=== PATIENT | female | born 1955 | race Caucasian/White ===

== ENCOUNTER → 2017-06-26 | Outpatient (CLI) | payer MEDICARE ==
[2014-11-04 10:12] VITALS: BP 125/66
[~2017-06-26] MED LIST: CITA40TA12 PO; CYCL5TAB PO; GLIM2TAB2 PO; HYDR-2758 PO; LISI-338 PO; LOVA40TA2 PO; METF850T2 PO; OLAN20TA7 PO; OMEP20CA5 PO; PIOG15TA42 PO; PROAIR HFA8.5 GM IH; ROPI1TAB PO; ZOLP10TA PO; glyburide
--- NOTE | 2017-06-27 14:16 | SLEEP ---
DATE OF STUDY: 06/26/2017 SLEEP STUDY ATTENDING PHYSICIAN: Dr. Delicia Lopes. The patient is 62 years old who weighs 250 pounds with a BMI of 40. The patient's [place] score was 5. The patient had a previous sleep study 5 years ago at and was negative for MARIE per history. The patient has gained 30-40 pounds since then. Another sleep study was requested by primary care physician and was performed at [facility]. During the night study, the patient spent 423 minutes in bed and slept for 236 minutes with a low sleep efficiency of 56%. Sleep latency was 24 minutes with absent REM sleep. Overall, sleep architecture showed increased stage I and stage II sleep, normal slow wave and absent REM sleep. During the night study, the patient had 2 obstructive apneas, no mixed or central apneas. There were 66 hypopneas. The patient's apnea-hypopnea index was 17 per hour with a supine index of 19 per hour. No REM sleep observed. Review of nocturnal oximetry study revealed a mean oxygen saturation of 88% with the lowest of 67%. A 12% of time oxygen saturation remained between 80% and 89% and 87% of time between 70% and 79%. EKG monitoring revealed an artifact; however, the rhythm was irregular and was consistent with atrial fibrillation. The patient's average heart rate was 101 beats per minute. PLMS were seen at index of 1 per hour and none caused EEG arousals. The patient's respiratory events were towards the end of the night as a result CPAP could not be initiated. IMPRESSION: 1. Moderate sleep apnea-hypopnea syndrome with an apnea-hypopnea index of 17 per hour. Absence of REM sleep can underestimate the severity of sleep apnea. 2. Nocturnal hypoxia secondary to obstructive sleep apnea. 3. Abnormal EKG consistent with atrial fibrillation. Follow Cardiology as clinically indicated. RECOMMENDATIONS: 1. The patient should return for CPAP titration study. 2. Once optimum CPAP pressure is achieved, then follow up in 4-6 weeks to assess compliance with CPAP and to document clinical improvement. 3. Weight loss is strongly advised. 4. Avoid REWINDER OPERATOR HELPER depressants. 5. Caution regarding driving until symptoms of sleep apnea resolve with the use of CPAP. JASON HUSSEIN MD DR: DARÍO/chelsea JOB#: [id number] / [id number] DELICIA Pollack MD
== END | disposition home or self-care (01) ==
LOC: SLPLAB 18:28
PROVIDERS: ATTEND Family Medicine
DX: G47.33 Obstructive sleep apnea (adult) (pediatric) (principal)
CPT/HCPCS: 95810

== ENCOUNTER → 2017-08-05 | Outpatient (CLI) | payer MEDICARE ==
[2014-11-04 10:12] VITALS: BP 125/66
--- NOTE | 2017-08-06 16:19 | SLEEP ---
DATE OF STUDY: 08/05/2017 ATTENDING PHYSICIAN: Dr. Delicia Lopes. The patient is 62 years old who weighs 250 pounds with a BMI of 40. The patient's [place] score was 5. The patient had a sleep study performed on 06/26/2017 and was found to have moderate MARIE with an AHI of 17 per hour. The patient's EKG was also abnormal consistent with atrial fibrillation. She was referred back for CPAP titration study. During the night study, the patient spent 397 minutes in bed and slept for 278 minutes with a low sleep efficiency of 70%. Sleep latency was prolonged at 61 minutes with a REM latency of 205 minutes. Overall, sleep architecture showed normal stage I and stage II sleep, increased slow wave and normal REM sleep. EKG monitoring revealed irregular heartbeat consistent with atrial fibrillation. The patient's average heart rate was 86 beats per minute. PLMS were not seen. The patient was started on CPAP at a pressure of 5 cm water and titrated up to 15 cm of water. At the final pressure, the patient slept for 91 minutes. The patient had supine sleep as well as lateral REM sleep observed. The patient's AHI was reduced to 0 per hour. The patient's oxygen saturations remained mid 80s while on REM sleep at this pressure. It went up to 90s when the patient was not in REM sleep. She would benefit from an outpatient nocturnal oximetry study to assess the need for supplemental oxygen. The patient used a small sized full face mask. IMPRESSION: 1. Moderate sleep apnea diagnosed by previous sleep study. 2. Abnormal EKG consistent with atrial fibrillation. 3. Mild nocturnal hypoxia, which persisted despite effective CPAP usage. It could be secondary to coexisting obesity hypoventilation syndrome. RECOMMENDATIONS: 1. CPAP at 15 cm water completely eliminated the patient's sleep apnea, should be used on a nightly basis. 2. Nocturnal oximetry as an outpatient while on 15 cm of water to assess the need for supplemental oxygen. 3. Follow up in 4-6 weeks to assess compliance with CPAP and to document clinical improvement. 4. Weight loss is strongly advised. 5. Avoid PRODUCTION STAGE MANAGER depressants. 6. Caution regarding driving until symptoms of sleep apnea resolve with the use of CPAP. JASON HUSSEIN MD DR: DARÍO/chelsea JOB#: [id number] / [id number] DELICIA Pollack MD MTDD
== END | disposition home or self-care (01) ==
LOC: RT 20:17
PROVIDERS: ATTEND Family Medicine
DX: G47.33 Obstructive sleep apnea (adult) (pediatric) (principal)
CPT/HCPCS: 95811

== ENCOUNTER → 2017-08-29 | Outpatient (CLI) | payer MEDICARE ==
[2014-11-04 10:12] VITALS: BP 125/66
--- NOTE | 2017-08-30 10:40 | RAD ---
APPROVED REPORT Test Type: Pharmacological Stress Nurse/Tech: Sheron Galindo R.N. Test Indications: dyspnea Cardiac History: htn, smoker, DM Medications: See Electronic Medical Record Medical History: See Electronic Medical Record Resting ECG: SR Resting Heart Rate: 74 bpm Resting Blood Pressure: 124/56mmHg Pretest Chest Pain: No chest pain Nurse/Tech Notes S1S2, lungs CTA Consent: The procedure was explained to the patient in lay terms. Informed consent was witnessed. Gasper eout was entered into Thryve. History and Stress Test performed by RT Madie (R) (N) Pharm. Details Pharmacologic stress testing was performed using 0.4mg per 5ml of regadenoson given intravenously ove r 7-10 seconds. Stress Symptoms dyspnea POST EXERCISE Reason for Termination: Infusion complete Max HR: 102 bpm Max Blood Pressure: 138/47mmHg Blood Pressure response to exercise: Normal blood pressure response during stress. Heart Rate response to exercise: wnl Chest Pain: No. Arrhythmia: No. ST Change: No. INTERPRETATION Stress EKG Conclusion: Baseline EKG showed sinus rhythm. No ischemic changes at peak stress. No arr hythmias. Imaging Protocol IMAGE PROTOCOL: Rest Tc-99m/stress Tc-99m 2 days Rest: Stress: Viability: Radiopharm.Tc99m VzgxisdarAc98o Sestamibi Umws57mLq 32.6mCi Duration 15min. 10min. Img Date 08/29/2017 08/30/2017 Inj-Img [id number]. 60min. Rest Admin Site:IV - Left AntecubitalAdministrator:RT Jonah RamachandranR)(N) Stress Admin Site: IV - Left AntecubitalAdministrator: RT Madie (R)(N) STRESS DATA End Diast. Vol.89.0mlAv. Heart Rate82.0bpm End Syst. Vol.16.0mlCO Index BSA0.0L/min Myocardial Nbrr437.0gEject. Txqibefl49.0% Stress Rates Pk. Fill Rate3.41EDV/secLVtime Pk. Fill 105.15msec Pk. Empty Rate3.83ESV/secLVtime Pk. Lduna884.51msec 09/25 Pk. Fill2.01EDV/sec Stress Scores Regional WT1.00Summed WT7.00 Regional WM0.00Summed WM0.00 Study quality was good. Left Ventricular size was Normal at Rest and Stress. Lung uptake was Normal. Left Ventricular ejection fraction is 82%. The rest and stress images show normal perfusion, normal contraction and thickening. LV Perf. Quant 17 Seg. SSS0.00 17 Seg. SRS1.00 17 Seg. SDS0.00 Stress Defect Extent (% LAD)0.00Rest Defect Extent (% LAD)3.10Rev. Defect Extent (% LAD)0.00 Stress Defect Extent (% LCX) 0.00Rest Defect Extent (% LCX)0.00Rev. Defect Extent (% LCX)0.00 Stress Defect Extent (% RCA)0.00Rest Defect Extent (% RCA)0.00Rev. Defect Extent (% RCA)0.00 Stress Defect Extent (% SHIRA)0.00Rest Defect Extent (% SHIRA)1.30Rev. Defect Extent (% SHIRA)0.00 Conclusion 1. Regadenoson cardioisotope stress test did not show any evidence of ischemia or infarct. 2. Normal left ventricular systolic function with ejection fraction calculated at 82%. 3. Low risk for cardiac events.
== END | disposition home or self-care (01) ==
LOC: NM 07:58
PROVIDERS: ATTEND Internal Medicine Cardiovascular Disease
DX: I49.5 Sick sinus syndrome (principal); I10 Essential (primary) hypertension; E11.9 Type 2 diabetes mellitus without complications; Z87.891 Personal history of nicotine dependence
CPT/HCPCS: 78452; 96374; 96375; A9500

== ENCOUNTER 2017-09-24 06:21 | Outpatient (CLI) | payer OTHER, MEDICARE ==
[2017-09-24 07:08] LABS: HEMATOCRIT 48.1 % (36.0-47.0); MEAN CORPUSCULAR HEMOGLOBIN 30 pg (25-35); MEAN CORPUSCULAR HGB CONC 33 g/dL (31-37); MEAN CORPUSCULAR VOLUME 90 fL (79-100); PLATELET COUNT 250 x10^3/uL (140-400); RED BLOOD COUNT 5.34 x10^6/uL (3.50-5.40); RED CELL DISTRIBUTION WIDTH 15.4 % (11.5-14.5); WHITE BLOOD COUNT 8.7 x10^3/uL (4.0-11.0)
[2017-09-24] MEDS ORDERED: LIDOCAINE 2% 20 ML VIAL. (07:09)
[2017-09-24] MEDS ORDERED: IODIXANOL 320 MG/ML 100 ML VIAL. (07:10)
[2017-09-24 07:14] LABS: ANION GAP 11 (6-14); BLOOD UREA NITROGEN 18 mg/dL (7-20); CALCIUM 9.3 mg/dL (8.5-10.1); CARBON DIOXIDE 28 mmol/L (21-32); CHLORIDE 103 mmol/L (98-107); GFR 56.6; GLUCOSE 130 mg/dL (70-99); PARTIAL THROMBOPLASTIN TIME 25 SEC (24-38); POTASSIUM 4.4 mmol/L (3.5-5.1); PROTHROMBIN TIME PATIENT 12.4 SEC (11.7-14.0); SODIUM 142 mmol/L (136-145)
[2017-09-24] MEDS ORDERED: fentaNYL PF VIAL 100 MCG/2 ML VIAL (07:42)
[2017-09-24] MEDS ORDERED: MIDAZOLAM HCL/PF 2 MG/2 ML VIAL. (07:42)
[2017-09-24] MEDS: LIDOCAINE 2% 20 ML VIAL. IJ (08:30)
[2017-09-24] MEDS: fentaNYL PF VIAL 100 MCG/2 ML VIAL IV (08:30)
[2017-09-24] MEDS: MIDAZOLAM HCL/PF 2 MG/2 ML VIAL. IV (08:30)
[2017-09-24] MEDS: IODIXANOL 320 MG/ML 100 ML VIAL. IART (08:30)
[2017-09-24] MEDS ORDERED: IV 1/2 NORMAL SALINE 1,000 ML IV (08:52)
== END 2017-09-24 10:45 | disposition home or self-care (01) ==
LOC: CCL 06:21
DX: I70.212 Atherosclerosis of native arteries of extremities with intermittent claudication, left leg (principal); E78.00 Pure hypercholesterolemia, unspecified; I10 Essential (primary) hypertension; J44.9 Chronic obstructive pulmonary disease, unspecified; K21.9 Gastro-esophageal reflux disease without esophagitis; F41.9 Anxiety disorder, unspecified; F32.9 Major depressive disorder, single episode, unspecified; F17.200 Nicotine dependence, unspecified, uncomplicated; Z79.01 Long term (current) use of anticoagulants; Z72.0 Tobacco use
CPT/HCPCS: 36200; 36415; 75630; 80048; 85027; 85610; 85730; 99152; 99153; C1769; C1771; C1892; G0269; J1644; J2250; J3010

== ENCOUNTER → 2017-11-14 | Outpatient (CLI) | payer OTHER | END | disposition home or self-care (01) | LOC: KCIC MAMMO 13:34 | DX: Z12.31 Encounter for screening mammogram for malignant neoplasm of breast (principal) | CPT/HCPCS: 77063; 77067 ==

== ENCOUNTER 2018-01-04 11:57 | Emergency (ER) | payer OTHER | END 2018-01-04 14:53 | disposition home or self-care (01) | LOC: ER 14:53 | DX: S93.601A Unspecified sprain of right foot, initial encounter (principal); E11.9 Type 2 diabetes mellitus without complications; E78.00 Pure hypercholesterolemia, unspecified; I10 Essential (primary) hypertension; F20.9 Schizophrenia, unspecified; G25.81 Restless legs syndrome; G47.30 Sleep apnea, unspecified; Z98.51 Tubal ligation status; X58.XXXA Exposure to other specified factors, initial encounter; Y93.89 Activity, other specified; Y92.89 Other specified places as the place of occurrence of the external cause; Y99.8 Other external cause status | CPT/HCPCS: 73610; 73630; 99284 ==

== ENCOUNTER → 2018-01-14 | Outpatient (CLI) | payer OTHER | END | disposition home or self-care (01) | LOC: KCIC 08:37 | DX: M79.89 Other specified soft tissue disorders (principal) | CPT/HCPCS: 73610; 73630 ==

== ENCOUNTER 2018-08-28 11:22 | Outpatient (CLI) | payer MEDICARE ==
[2018-08-28 10:30] VITALS: BP 165/74
[~2018-08-28 11:22] MED LIST changes: -IV NORMAL SALINE 1000ML BAG 1,000 ML IV ONE; -IV NORMAL SALINE 1000ML BAG 1,000 ML IV SCH; -NALOXONE 0.4 MG/ML VIAL. IV ONE
--- NOTE | 2018-08-28 16:55 | RAD ---
Removal of right internal jugular tunnel dialysis catheter 08/28/2018 Indication: Patient no longer requires dialysis access Discussion: The risks and benefits of the procedure were discussed the patient. Informed consent was obtained. A timeout procedure performed. The right neck and chest including the pacing catheter were prepped and draped using sterile barrier technique. The catheter was removed with traction. Manual pressure was held to achieve hemostasis. Sterile dressings were applied. Impression: Removal of right internal jugular tunnel dialysis catheter
== END 2018-08-28 12:39 | disposition home or self-care (01) ==
LOC: INTRAD 11:22
PROVIDERS: ATTEND Internal Medicine Nephrology
DX: Z45.2 Encounter for adjustment and management of vascular access device (principal)
CPT/HCPCS: 36589

== ENCOUNTER → 2018-08-28 | Emergency (ER) | payer MEDICARE ==
[~2018-08-28] VITALS: Ht 167.6 cm; Wt 122.5 kg
[~2018-08-28] MED LIST changes: +AMIO200T4 PO; +APIX5TAB PO; +ASPI-630 PO; +DILT30TA26 PO; +GLIP10TA13 PO; -HYDR-2758 PO; +HYDR-2761 PO; +IPRA3AMP29 NEB; +IV NORMAL SALINE 1000ML BAG 1,000 ML IV ONE; +IV NORMAL SALINE 1000ML BAG 1,000 ML IV SCH; +METF10007 PO; -METF850T2 PO; +METF850T8 PO; +METO-239 PO; +NALOXONE 0.4 MG/ML VIAL. IV ONE; +PANT40TA5 PO; +QUET200T4 PO; +TRAM50TA PO
--- NOTE | 2018-08-28 10:50 | PHYS DOC ---
Past Medical History Past Medical History: Diabetes-Type II, High Cholesterol, Hypertension, Schizophrenia, Other Additional Past Medical Histor: restless leg; SLEEP APNEA Past Surgical History: Tubal ligation Alcohol Use: Occasionally Drug Use: None Adult General Chief Complaint Chief Complaint: DIALYSIS PROBLEM HPI HPI Patient is a 63-year-old female who presents to the emergency department for evaluation. She states that she had a hemodialysis catheter placed in her right chest during a hospitalization a month ago, although she has not required dialysis since leaving the hospital. She states that she noticed some bloody fluid backing up into the dialysis catheter tubing, which had not been there and this concerned her and she presents for evaluation of this. She has not had any external bleeding around the catheter. She is scheduled to have the catheter removed on this coming Saturday. She states that she had been put on Eliquis by her PCP, for a history of atrial fibrillation apparently, but she has been instructed by the kidney doctor to stop this in advance of the move all of the catheter which is scheduled for Saturday. She has no other complaints at this time. She denies any chest pain or shortness of breath. Review of Systems Review of Systems Constitutional: Denies fever or chills [] Eyes: Denies change in visual acuity, redness, or eye pain [] HENT: Denies nasal congestion or sore throat [] Respiratory: Denies cough or shortness of breath [] Cardiovascular: The patient denies any shortness of breath, chest pain, palpitations, or orthopnea [] GI: Denies abdominal pain, nausea, vomiting, bloody stools or diarrhea [] : Denies dysuria or hematuria [] Musculoskeletal: Denies back pain or joint pain [] Integument: Denies rash or skin lesions [] Neurologic: Denies headache, focal weakness or sensory changes [] Endocrine: Denies polyuria or polydipsia [] All other systems were reviewed and found to be within normal limits, except as documented in this note. Allergies Allergies Allergies Coded Allergies Type Severity Reaction Last Updated Verified No Known Drug Allergies 09/20/17 No Physical Exam Physical Exam PHYSICAL EXAM: CONSTITUTIONAL: Well developed, well nourished HEAD: normocephalic, atraumatic EENT: PERRL, EOMI. Conjunctivae normal color, sclerae non-icteric; moist mucous membranes. NECK: Supple, non-tender; no meningismus. LUNGS: Lungs CTA, breathing even and unlabored. Normal air movement. HEART: Regular rate and rhythm, no murmur CHEST: No deformity; non-tender ABDOMEN: The abdomen is soft, and non-tender, no masses or bruits. EXTREM: Normal ROM; no deformity, no calf tenderness. Normal pulses palpable in all extremities. There is mild bilateral pedal edema. SKIN: No rash; no diaphoresis NEURO: Alert; normal speech and cognition; CN's grossly intact; strength grossly intact without focal deficit. BACK: No CVA TTP. EKG EKG [] Radiology/Procedures Radiology/Procedures [] Course & Med Decision Making Course & Med Decision Making I provided the patient's with reassurance that sometimes blood back up into IV catheters. I instructed the patient to continue to follow her strategic planning director instructions, and keep her appointment for catheter removal on Saturday. We discussed return precautions. Dragon Disclaimer Dragon Disclaimer This electronic medical record was generated, in whole or in part, using a voice recognition dictation system. Departure Departure Impression: Primary Impression: Complications, dialysis, catheter, mechanical Additional Impressions: Encounter for dialysis catheter care Vascular dialysis catheter in place Disposition: HOME, SELF-CARE Condition: STABLE Referrals: DELICIA QUINN MD (PCP) Patient Instructions: Central Line Placement, Dialysis Access, Instructions, Dialysis, Care After Problem Qualifiers FREIDA CRAIG MD Aug 28, 2018 10:50
[2018-08-28 11:48] VITALS: BP 170/60
[2018-08-28 12:15] VITALS: BP 142/83
[2018-08-28 12:24] VITALS: BP 153/62
== END ==
LOC: ER 10:12
DX: T82.49XA Other complication of vascular dialysis catheter, initial encounter (principal); E78.00 Pure hypercholesterolemia, unspecified; F20.9 Schizophrenia, unspecified; I10 Essential (primary) hypertension; E11.9 Type 2 diabetes mellitus without complications; G25.81 Restless legs syndrome; Z98.51 Tubal ligation status; Y82.8 Other medical devices associated with adverse incidents; Y92.89 Other specified places as the place of occurrence of the external cause
CPT/HCPCS: 99284

== ENCOUNTER 2018-10-14 17:29 | Emergency (ER) | payer MEDICARE ==
[~2018-10-14] VITALS: Ht 167.6 cm; Wt 122.5 kg
[~2018-10-14 17:29] MED LIST changes: +ALBU2.5V8 IH; -PROAIR HFA8.5 GM IH
[2018-10-14 19:17] VITALS: BP 128/53
[2018-10-14] MEDS ORDERED: LIDOCAINE 1% PF 30 ML VIAL. INJ ONE (19:30)
[2018-10-14] MEDS ORDERED: HYDROcodone/APAP 5/325MG 1 TAB TABLET PO ONE (19:30)
[2018-10-14] MEDS ORDERED: CEPH500T PO (20:56)
[2018-10-14] MEDS ORDERED: HYDR-3164 PO (20:56)
--- NOTE | 2018-10-14 20:56 | PHYS DOC ---
Past Medical History Past Medical History: A-Fib, CHF, Diabetes-Type II, GERD, High Cholesterol, Heart Disease, Hypertension, PR, Renal Failure Additional Past Medical Histor: restless leg; SLEEP APNEA Past Surgical History: Tubal ligation Additional Past Surgical Histo: Dialysis cath placemnet Alcohol Use: None Drug Use: None Adult General Chief Complaint Chief Complaint: LACERATION/AVULSION HPI HPI Patient is a 63 year old female who presents with right middle finger and ring finger lacerations, patient's right middle finger and right ring finger got caught in a door. Patient is right-handed. Review of Systems Review of Systems Constitutional: Denies fever or chills [] Musculoskeletal: Denies back pain or joint pain [] Integument: right middle finger and ring finger lacerations, Neurologic: Denies headache, focal weakness or sensory changes [] All other systems were reviewed and found to be within normal limits, except as documented in this note. Current Medications Current Medications Current Medications Medications (Trade) Dose Ordered Sig/Thuy Start Time Stop Time Status Last Admin Dose Admin Acetaminophen/ Hydrocodone Bitart (Lortab 5/325) 1 tab 1X ONCE 10/14/18 19:30 10/14/18 19:31 DC 10/14/18 19:30 1 TAB Lidocaine HCl (Xylocaine 1% Pf 30ml Vial) 30 ml 1X ONCE 10/14/18 19:30 10/14/18 19:31 DC 10/14/18 19:30 30 ML Allergies Allergies Allergies Coded Allergies Type Severity Reaction Last Updated Verified No Known Drug Allergies 09/20/17 No Physical Exam Physical Exam Constitutional: Well developed, well nourished, no acute distress, non-toxic appearance. [] Abdomen: Bowel sounds normal, soft, no tenderness, no masses, no pulsatile masses. [] Skin: Ventral aspect of the right middle finger at the PIP joint with a laceration approximately 2 cm long, there is no obvious tendon involvement, patient able to flex and extend the finger with no difficulties. There are superficial lacerations on the right ring finger distal and at the DIP joints, each laceration is approximately one centimeters long, this no tendon involvement in any of the lacerations. Adequate radial, medial, ulnar sensation to the right hand. +2 right radial pulse. Cap refill less than 2 seconds the right fingers. Bruising noted on the dorsal aspect of the right middle finger and right ring finger Back: No tenderness, no CVA tenderness. [] Extremities: No tenderness, no cyanosis, no clubbing, ROM intact, no edema. [] Neurologic: Alert and oriented X 3, normal motor function, normal sensory function, no focal deficits noted. [] Psychologic: Affect normal, judgement normal, mood normal. [] Current Patient Data Vital Signs Vital Signs Date Time Temp Pulse Resp B/P (MAP) Pulse Ox O2 Delivery O2 Flow Rate FiO2 10/14/18 19:30 16 94 Nasal Cannula 2.0 10/14/18 19:17 97.9 55 128/53 (78) 97.9 EKG EKG [] Radiology/Procedures Radiology/Procedures Laceration/Wound Repair Wound Location: Right middle finger laceration Wound's Depth, Shape: Horizontal Wound Length (cm): Approximately 2 cm Wound Explored: clean Irrigated w/ Saline (ccs): 100 Betadine Prep?: Yes Anesthesia: 1% of lidocaine Volume Anesthetic (ccs): Approximately 3 mL Wound Repaired With: Ethilon Suture Size/Type: 5.0/interrupted sutures Number of Sutures: 7 Progress : Wound was covered with nonstick dressing Course & Med Decision Making Course & Med Decision Making Pertinent Labs and Imaging studies reviewed. (See chart for details) This is a 63-year-old female patient presenting to the ED today with right middle finger laceration as well as superficial laceration to the right ring finger. Right hand x-rays are negative for any acute findings. Tetanus updated. Laceration to the right middle finger was closed by me as noted in procedures. Wound care instructions and return precautions provided. Dragon Disclaimer Dragon Disclaimer This electronic medical record was generated, in whole or in part, using a voice recognition dictation system. Departure Departure Impression: Primary Impression: Laceration of finger Additional Impression: Finger contusion Disposition: 01 HOME, SELF-CARE Condition: STABLE Referrals: NON,STAFF (PCP) Follow up with the emergency room or your own primary care doctor in 7-10 days for stitches removal Patient Instructions: Fingertip Laceration Additional Instructions: You have lacerations to the right hand. The one with stitches need to be removed in 7-10 days. Please keep the affected areas clean and dry. You can shower. Apply Neosporin to all of the lacerations twice a day for 7 days. Take the prescribed antibiotics until completed. Monitor the areas for any worsening condition including but not limited to increased redness to the area, yellow drainage from, warmth to the area and return to the ED if they occur. Scripts Cephalexin (CEPHALEXIN) 500 Mg Tablet 1 TAB PO QID, #40 TAB Prov: GEMAARISTIDESMORGAN APRN 10/14/18 Hydrocodone/Apap 5-325 (NORCO 5-325 TABLET) 1 Each Tablet 1 TAB PO Q6HRS, #10 TAB Prov: MORGAN LEDEZMA APRN 10/14/18 Problem Qualifiers Primary Impression: Laceration of finger Encounter type: initial encounter Finger: middle finger Damage to nail status: without damage Foreign body presence: without foreign body Laterality: right Qualified Codes: S61.212A - Laceration without foreign body of right middle finger without damage to nail, initial encounter Additional Impression: Finger contusion Encounter type: initial encounter Finger: ring finger Damage to nail status : without damage Laterality: right Qualified Codes: S60.041A - Contusion of right ring finger without damage to nail, initial encounter MORGAN LEDEZMA APRN Oct 14, 2018 20:56
--- NOTE | 2018-10-15 01:30 | RAD ---
Examination: 3 views of the right hand HISTORY: History of laceration third digit COMPARISON: None available FINDINGS: The alignment of the metacarpophalangeal, interphalangeal joints grossly appears unremarkable. No obvious acute fracture identified. Soft tissue laceration identified in the third digit volar to the DIP joint. IMPRESSION: No acute osseous findings. Electronically signed by: Flip Kulkarni MD (10/15/2018 1:25 AM) [id number]
== END 2018-10-14 21:13 | disposition home or self-care (01) ==
LOC: ER 17:29
DX: S61.212A Laceration without foreign body of right middle finger without damage to nail, initial encounter (principal); S60.041A Contusion of right ring finger without damage to nail, initial encounter; I48.91 Unspecified atrial fibrillation; I13.0 Hypertensive heart and chronic kidney disease with heart failure and stage 1 through stage 4 chronic kidney disease, or unspecified chronic kidney disease; I50.9 Heart failure, unspecified; N18.9 Chronic kidney disease, unspecified; E11.22 Type 2 diabetes mellitus with diabetic chronic kidney disease; E78.00 Pure hypercholesterolemia, unspecified; K21.9 Gastro-esophageal reflux disease without esophagitis; I25.2 Old myocardial infarction; Z98.51 Tubal ligation status; Z99.2 Dependence on renal dialysis; W23.0XXA Caught, crushed, jammed, or pinched between moving objects, initial encounter; Y93.89 Activity, other specified; Y92.89 Other specified places as the place of occurrence of the external cause; Y99.8 Other external cause status
CPT/HCPCS: 12001; 73130; 99284-25

== ENCOUNTER → 2018-11-21 | Outpatient (CLI) | payer MEDICARE ==
[~2018-11-21] MED LIST changes: +CEPH500T PO; +DOXY100T PO; +FURO40TA4 PO; +HYDR-3164 PO; +LEVO50TA PO; +OLAN20TA15 PO; -OLAN20TA7 PO; +POTA20TA4 PO
--- NOTE | 2018-11-21 17:36 | KCIC ---
Chest, PA and Lateral: Technique: PA and lateral views of the chest were obtained. History: Dyspnea. Comparison: 04/06/2018. Findings: Moderate cardiomegaly. Diffuse prominent appearing bilateral interstitial lung markings likely congestive changes. Bibasilar lung airspace opacities likely bilateral pleural effusions, left greater than right IMPRESSION: 1. Diffuse bilateral lung congestive changes. 2. Bilateral pleural effusions, left greater than right. Electronically signed by: Flip Kulkarni MD (11/21/2018 5:33 PM) [id number]
== END | disposition home or self-care (01) ==
LOC: KCIC 11:19
PROVIDERS: ATTEND Family Medicine
DX: J90 Pleural effusion, not elsewhere classified (principal); R09.89 Other specified symptoms and signs involving the circulatory and respiratory systems; I13.0 Hypertensive heart and chronic kidney disease with heart failure and stage 1 through stage 4 chronic kidney disease, or unspecified chronic kidney disease; E11.22 Type 2 diabetes mellitus with diabetic chronic kidney disease; I50.9 Heart failure, unspecified; N18.9 Chronic kidney disease, unspecified
CPT/HCPCS: 71046

== ENCOUNTER 2018-11-26 16:09 | Inpatient (IN) | payer MEDICARE ==
[~2018-11-26] VITALS: Ht 167.6 cm; Wt 143.8 kg
[~2018-11-26 16:09] MED LIST changes: -DOXY100T PO; -FURO40TA4 PO; -LEVO50TA PO; -POTA20TA4 PO
[2018-11-26] MEDS ORDERED: IPRATRPIUM/ALBUTEROL 0.5/2.5MG 3 ML NEBU. NEB ONE (16:15)
[2018-11-26 16:38] LABS: BASO % 1 % (0-3); EOS # 0.1 x10^3/uL (0.0-0.7); EOS % 1 % (0-3); HEMATOCRIT 27.6 % (36.0-47.0); HEMOGLOBIN 8.4 g/dL (12.0-15.5); LYMPH # 1.1 x10^3/uL (1.0-4.8); LYMPH % 16 % (24-48); MEAN CORPUSCULAR HEMOGLOBIN 27 pg (25-35); MEAN CORPUSCULAR HGB CONC 30 g/dL (31-37); MEAN CORPUSCULAR VOLUME 87 fL (79-100); MONO # 0.7 x10^3/uL (0.0-1.1); MONO % 10 % (0-9); NEUT % 73 % (31-73); PLATELET COUNT 293 x10^3/uL (140-400); RED BLOOD COUNT 3.17 x10^6/uL (3.50-5.40); RED CELL DISTRIBUTION WIDTH 17.1 % (11.5-14.5); WHITE BLOOD COUNT 6.8 x10^3/uL (4.0-11.0)
[2018-11-26 16:58] LABS: CREATININE 1.7 mg/dL (0.6-1.0); GFR 30.6
--- NOTE | 2018-11-26 16:59 | RAD ---
Indication:Dyspnea TECHNIQUE:Portable AP chest X-ray COMPARISON:11/21/2018 FINDINGS: Patient is rotated to the left side. Heart is normal in size. Diffuse opacification seen of the bilateral lower lung zones, right more than left. No pneumothorax. Visualized bony thorax within normal limits. IMPRESSION: Findings suggests bilateral right more than left pleural effusions. Underlying atelectasis or pneumonia in the lower lobes not ruled out. Electronically signed by: Cedric Holcomb DO (11/26/2018 4:56 PM) [id number]
--- NOTE | 2018-11-26 17:03 | PHYS DOC ---
Past Medical History Past Medical History: A-Fib, CHF, Diabetes-Type II, GERD, High Cholesterol, Heart Disease, Hypertension, [place], Renal Failure Additional Past Medical Histor: restless leg; SLEEP APNEA Past Surgical History: Tubal ligation Additional Past Surgical Histo: Dialysis cath placemnet Alcohol Use: None Drug Use: None Adult General Chief Complaint Chief Complaint: SHORTNESS OF BREATH HPI HPI Patient is a 63 year old female presented to ER today for evaluation of trouble breathing started about 45 minutes ago. Patient says she was walking to the bathroom to use the toilet when she walked back to her room she started having severe trouble breathing. She denies any chest pain, no fever. Patient admitted of some nonproductive cough. Patient has history of atrial fibrillation , CHF, COPD. Patient is a former smoker, she stopped smoking about 3 months ago. Patient is on a CPAP at night. Patient is on 3 L of oxygen as needed. She says she tripped and fell down yesterday, hit her head on the floor. She denies any loss of consciousness. She does have headache. Review of Systems Review of Systems Constitutional: Denies fever or chills [] Eyes: Denies change in visual acuity, redness, or eye pain [] HENT: Denies nasal congestion or sore throat [] Respiratory: POSITIVE FOR NONPRODUCTIVE cough, POSITIVE FOR shortness of breath , WORSE WITH EXERTION. Cardiovascular: NO CHEST PAIN GI: Denies abdominal pain, nausea, vomiting, bloody stools or diarrhea [] : Denies dysuria or hematuria [] Musculoskeletal: Denies back pain or joint pain [] Integument: Denies rash or skin lesions [] Neurologic: Positive for headache, NO focal weakness or sensory changes [] Endocrine: Denies polyuria or polydipsia [] All other systems were reviewed and found to be within normal limits, except as documented in this note. Current Medications Current Medications Current Medications Medications (Trade) Dose Ordered Sig/Thuy Start Time Stop Time Status Last Admin Dose Admin Albuterol/ Ipratropium (Duoneb) 3 ml RTQID 11/26/18 20:00 11/27/18 19:59 UNV Azithromycin 250 ml @ 250 mls/hr 1X ONCE 11/26/18 18:00 11/26/18 18:59 Ceftriaxone Sodium (Rocephin) 1 gm 1X ONCE 11/26/18 18:00 11/26/18 18:02 DC Furosemide (Lasix) 60 mg 1X ONCE 11/26/18 18:00 11/26/18 18:01 DC Ondansetron HCl (Zofran) 4 mg PRN Q8HRS PRN 11/26/18 18:15 11/27/18 18:14 UNV Allergies Allergies Allergies Coded Allergies Type Severity Reaction Last Updated Verified No Known Drug Allergies 11/26/18 No Physical Exam Physical Exam Constitutional: Well developed, well nourished, no acute distress, non-toxic appearance. [] HENT: Normocephalic, atraumatic, bilateral external ears normal, oropharynx moist, no oral exudates, nose normal. [] Eyes: PERRLA, EOMI, conjunctiva normal, no discharge. [] Neck: Normal range of motion, no tenderness, supple, no stridor. [] Cardiovascular:Heart rate regular rhythm, no murmur [] Lungs & Thorax: decreased breath sound in lung bases. diffuse wheezing throughout. Abdomen: Bowel sounds normal, soft, no tenderness, no masses, no pulsatile masses. [] Skin: Warm, dry, no erythema, no rash. [] Back: No tenderness, no CVA tenderness. [] Extremities: No tenderness, no cyanosis, no clubbing, ROM intact, BILATERAL LOWER EXTREMITIES PITTING EDEMA, 4 PLUS, EDEMATOUS TO ABDOMINAL WALL AREA. Neurologic: Alert and oriented X 3, normal motor function, normal sensory function, no focal deficits noted. There is some superficial skin contusion on left side forehead. Psychologic: Affect normal, judgement normal, mood normal. [] Current Patient Data Vital Signs Vital Signs Date Time Temp Pulse Resp B/P (MAP) Pulse Ox O2 Delivery O2 Flow Rate FiO2 11/26/18 16:31 88 Nasal Cannula 4.0 11/26/18 16:12 98.4 115 28 184/84 (117) 98.4 Lab Values Laboratory Tests Test 11/26/18 16:25 11/26/18 17:45 White Blood Count 6.8 x10^3/uL (4.0-11.0) Red Blood Count 3.17 x10^6/uL (3.50-5.40) L Hemoglobin 8.4 g/dL (12.0-15.5) L Hematocrit 27.6 % (36.0-47.0) L Mean Corpuscular Volume 87 fL (79-100) Mean Corpuscular Hemoglobin 27 pg (25-35) Mean Corpuscular Hemoglobin Concent 30 g/dL (31-37) L Red Cell Distribution Width 17.1 % (11.5-14.5) H Platelet Count 293 x10^3/uL (140-400) Neutrophils (%) (Auto) 73 % (31-73) Lymphocytes (%) (Auto) 16 % (24-48) L Monocytes (%) (Auto) 10 % (0-9) H Eosinophils (%) (Auto) 1 % (0-3) Basophils (%) (Auto) 1 % (0-3) Neutrophils # (Auto) 5.0 x10^3uL (1.8-7.7) Lymphocytes # (Auto) 1.1 x10^3/uL (1.0-4.8) Monocytes # (Auto) 0.7 x10^3/uL (0.0-1.1) Eosinophils # (Auto) 0.1 x10^3/uL (0.0-0.7) Basophils # (Auto) 0.0 x10^3/uL (0.0-0.2) Sodium Level 144 mmol/L (136-145) Potassium Level 4.0 mmol/L (3.5-5.1) Chloride Level 99 mmol/L (98-107) Carbon Dioxide Level 42 mmol/L (21-32) H Anion Gap 3 (6-14) L Blood Urea Nitrogen 18 mg/dL (7-20) Creatinine 1.7 mg/dL (0.6-1.0) H Estimated GFR (Cockcroft-Gault) 30.6 BUN/Creatinine Ratio 11 (6-20) Glucose Level 201 mg/dL (70-99) H Calcium Level 9.0 mg/dL (8.5-10.1) Total Bilirubin 0.5 mg/dL (0.2-1.0) Aspartate Amino Transferase (AST) 20 U/L (15-37) Alanine Aminotransferase (ALT) 28 U/L (14-59) Alkaline Phosphatase 84 U/L (46-116) Creatine Kinase 35 U/L (26-192) Creatine Kinase MB (Mass) ng/mL (0.0-3.6) Creatine Kinase MB Relative Index Pending Troponin I Quantitative < 0.017 ng/mL (0.000-0.055) JA-Cly-M-Type Natriuretic Peptide 6092 pg/mL (0-124) H Total Protein 7.2 g/dL (6.4-8.2) Albumin 3.2 g/dL (3.4-5.0) L Albumin/Globulin Ratio 0.8 (1.0-1.7) L Urine Color Yellow Urine Clarity Clear Urine pH 6.0 Urine Specific [place] 1.015 Urine Protein Negative mg/dL (NEG-TRACE) Urine Glucose (UA) Negative mg/dL (NEG) Urine Ketones (Stick) Negative mg/dL (NEG) Urine Blood Negative (NEG) Urine Nitrite Negative (NEG) Urine Bilirubin Negative (NEG) Urine Urobilinogen Dipstick 1.0 mg/dL (0.2 mg/dL) Urine Leukocyte Esterase Negative (NEG) Urine RBC 0 /HPF (0-2) Urine WBC Occ /HPF (0-4) Urine Squamous Epithelial Cells Occ /LPF Urine Bacteria 0 /HPF (0-FEW) Urine Mucus Slight /LPF Laboratory Tests 11/26/18 16:25 Laboratory Tests 11/26/18 16:25 EKG EKG EKG was read by this physician at 1705, rate of 103 bpm, atrial fib with RVR, NO STEMI. [] Radiology/Procedures Radiology/Procedures [][facility] [address] [place] [address] IMAGING REPORT Signed PATIENT: JOHNY ACEVEDO ACCOUNT: [id number] : 1955 LOCATION: ER AGE: 63 SEX: F EXAM STATUS: REG ER ORD. PHYSICIAN: DAYAN DAVE DO REASON: SOA PROCEDURE: PORTABLE CHEST 1V Indication:Dyspnea TECHNIQUE:Portable AP chest X-ray COMPARISON:11/21/2018 FINDINGS: Patient is rotated to the left side. Heart is normal in size. Diffuse opacification seen of the bilateral lower lung zones, right more than left. No pneumothorax. Visualized bony thorax within normal limits. IMPRESSION: Findings suggests bilateral right more than left pleural effusions. Underlying atelectasis or pneumonia in the lower lobes not ruled out. Electronically signed by: Cedric Holcomb DO (11/26/2018 4:56 PM) [id number] DICTATED and SIGNED BY: CEDRIC HOLCOMB DO DATE: 11/26/18 1654 Course & Med Decision Making Course & Med Decision Making Pertinent Labs and Imaging studies reviewed. (See chart for details) [] Dragon Disclaimer Dragon Disclaimer This electronic medical record was generated, in whole or in part, using a voice recognition dictation system. Departure Departure Impression: Primary Impression: CHF (congestive heart failure) Additional Impressions: Anasarca CAP (community acquired pneumonia) COPD exacerbation Pleural effusion Disposition: ADMITTED INPATIENT Admitting Physician: Other (DR. KIANA ORTEZ) Condition: STABLE Referrals: DELICIA QUINN MD (PCP) Problem Qualifiers DAYAN DAVE DO Nov 26, 2018 17:03
[2018-11-26 17:04] LABS: ALBUMIN 3.2 g/dL (3.4-5.0); ALBUMIN/GLOBULIN RATIO 0.8 (1.0-1.7); TOTAL BILIRUBIN 0.5 mg/dL (0.2-1.0); TOTAL PROTEIN 7.2 g/dL (6.4-8.2)
[2018-11-26 17:06] LABS: CREATINE KINASE 35 U/L (26-192)
--- NOTE | 2018-11-26 17:41 | EKG ---
[facility] [address] [place] [address] Test Date: 2018-11-26 Test Time: 17:05:01 Pat Name: JOHNY ACEVEDO Department: Room: Gender: F Supervisor Curing Room: : 1955 Requested By: DAYAN DAVE Order Number: [id number] Reading MD: Joseph Eden MD Measurements Intervals [place] Rate: 103 P: CO: QRS: 88 QRSD: 68 T: 72 QT: 364 QTc: 479 Interpretive Statements PROBABLE ATRIAL FIBRILLATION LOW VOLTAGE NON-SPECIFIC ST/T CHANGES Electronically Signed On 11-27-2018 11:12:17 LAB ASST by Joseph Eden MD
[2018-11-26 17:59] LABS: BILIRUBIN,URINE NEGATIVE (NEG); CLARITY,URINE CLEAR; COLOR,URINE YELLOW; NITRITE,URINE NEGATIVE (NEG); PROTEIN,URINE NEGATIVE (NEG-TRACE)
[2018-11-26] MEDS ORDERED: FUROSEMIDE 40 MG/4 ML VIAL. IVP ONE (18:00)
[2018-11-26] MEDS ORDERED: cefTRIAXone IV Push 1 GM VIAL. IVP ONE (18:00)
[2018-11-26] MEDS ORDERED: AZITHRMYCN 500MG IVPB FOR OMNI 250 ML IV ONE (18:00)
[2018-11-26 18:07] LABS: BACTERIA,URINE 0 /HPF (0-FEW); RBC,URINE 0 /HPF (0-2); SQUAMOUS EPITHELIAL CELL,UR OCC /LPF; WBC,URINE OCC /HPF (0-4)
[2018-11-26] MEDS ORDERED: ONDANSETRON PF 4 MG/2 ML VIAL. IV PRN (18:15)
--- NOTE | 2018-11-26 18:28 | RAD ---
CT head and cervical spine without contrast History: Fall yesterday, on blood thinner Technique: Noncontrast CT imaging was performed of the head and cervical spine. Multiplanar reconstruction images are submitted. Exposure: One or more of the following individualized dose reduction techniques were utilized for this examination: 1. Automated exposure control 2. Adjustment of the mA and/or kV according to patient size 3. Use of iterative reconstruction technique. Head CT Comparison: None Findings: No acute extra-axial or parenchymal hemorrhage is identified. There is no significant intra-axial mass effect, midline shift, or extra-axial fluid collection. The hastings-white differentiation of the major vascular territories is preserved. The ventricles, sulci, and cisterns are within normal limits in size and configuration. The mastoid air cells and the visualized paranasal sinuses are aerated. There is no significant focal calvarial abnormality. There is atherosclerotic calcification carotid siphons bilaterally. Impression: 1. No acute intracranial abnormality is identified. Cervical spine CT Comparison: None Findings: Exam is degraded by significant motion. No obvious displaced cervical spine fracture is identified. There is multilevel cervical facet degenerative change. There is likely multilevel cervical neural foramina compromise although poorly characterized on this motion degraded exam. There is mild levoscoliosis. There is incomplete unification of the posterior central arch of C1 on developmental basis. Not fully included, there are likely small bilateral pleural effusions. There is likely at least mild spinal stenosis C5-6 at which there is disc osteophyte complex. There is [id number] C5-6 degenerative disc disease. Impression: 1. Exam is degraded by significant motion, no obvious displaced cervical spine fracture identified, somewhat limited evaluation for more subtle fracture. 2. Not fully included, there are at least small bilateral pleural effusions. 3. Poorly evaluated, there is multilevel cervical neural foramina compromise, multilevel facet degenerative change. 4. There is likely at least mild spinal stenosis C5-6 by disc osteophyte complex. There is [id number] C5-6 degenerative disc disease. Electronically signed by: Raudel Shepherd MD (11/26/2018 6:25 PM) [facility]
--- NOTE | 2018-11-26 19:39 | NUR ---
Pt. just arrived from ED via bed w/ CHF exacerbation and pleural effusions. She is A/O x4 and will make needs known.
[2018-11-26] MEDS: IPRATRPIUM/ALBUTEROL 0.5/2.5MG 3 ML NEBU. NEB SCH ×2 (19:44→21:00)
[2018-11-26] MEDS ORDERED: FURO40TA4 PO (20:55)
[2018-11-26] MEDS ORDERED: DEXTROSE 50% 25 GM / 50ML DISP.SYRIN. IV PRN (21:00)
--- NOTE | 2018-11-26 21:02 | PDOC1 ---
History and Physical Date of Admission Date of Admission DATE: 11/26/18 TIME: 21:02 Identification/Chief Complaint Chief Complaint Shortness of breath Source Source: Patient History of Present Illness History of Present Illness 63 year old female w/ PMHx MARIE, COPD, CHF, Afib who presented to ER today for evaluation of trouble breathing started rather suddenly. Patient says she was walking to the bathroom to use the toilet when she walked back to her room she started having severe trouble breathing. She says she tripped and fell down, hit her head on the floor, striking her left eye. She denies any loss of consciousness. She does have headache. She denies any chest pain, no fever. Patient admitted of some nonproductive cough. Patient is a former smoker, she stopped smoking about 3 months ago. Patient is on a CPAP at night. Patient is on 3 L of oxygen as needed. Noted in ED with Cr. 1.7, Hb 8.4 and nt-pro BNP of 6092 with significant edema of bilateral LE, placed on BIPAP, given 60mg IV lasix. CT head and neck neg for fracture. CXR consistent with fluid overload. Past Medical History Cardiovascular: HTN Pulmonary: COPD, Other CENTRAL NERVOUS SYSTEM: Other GI: GERD Heme/Onc: No pertinent hx Hepatobiliary: No pertinent hx Psych: Anxiety, Depression, Schizophrenia Musculoskeletal: Osteoarthritis Rheumatologic: No pertinent hx Infectious disease: No pertinent hx Renal/: No pertinent hx Endocrine: Diabetes Past Surgical History Past Surgical History: No pertinent history Family History Family History: Cancer, Coronary Artery Disease, Diabetes Social History ALCOHOL: none Drugs: None Current Problem List Problem List Problems Medical Problems: (1) Anasarca Status: Acute (2) CAP (community acquired pneumonia) Status: Acute (3) CHF (congestive heart failure) Status: Acute (4) COPD exacerbation Status: Acute (5) Pleural effusion Status: Acute Current Medications Current Medications Current Medications Albuterol/ Ipratropium (Duoneb) 3 ml 1X ONCE NEB Last administered on at 16:29; Start 11/26/18 at 16:15; Stop 11/26/18 at 16:16; Status DC Furosemide (Lasix) 60 mg 1X ONCE IVP Last administered on 11/26/18at 18:52; Start 11/26/18 at 18:00; Stop 11/26/18 at 18:01; Status DC Ceftriaxone Sodium (Rocephin) 1 gm 1X ONCE IVP Last administered on 11/26/18at 18:47; Start 11/26/18 at 18:00; Stop 11/26/18 at 18:02; Status DC Azithromycin 250 ml @ 250 mls/hr 1X ONCE IV Last administered on 11/26/18at 19: 00; Start 11/26/18 at 18:00; Stop 11/26/18 at 18:59; Status DC Ondansetron HCl (Zofran) 4 mg PRN Q8HRS PRN IV NAUSEA/VOMITING; Start 11/26/18 at 18:15; Stop 11/27/18 at 18:14 Albuterol/ Ipratropium (Duoneb) 3 ml RTQID NEB Last administered on 11/26/18at 19 :44; Start 11/26/18 at 20:00; Stop 11/27/18 at 19:59 Active Scripts Active Metoprolol Succinate ( Xl ) (Metoprolol Succinate) 25 Mg Tab.er.24h 25 Mg PO DAILY 30 Days Duoneb 0.5-3(2.5) Mg/3 Ml (Albuterol/Ipratropium) 3 Ml Ampul.neb 3 Ml NEB RTQID 30 Days Eliquis (Apixaban) 5 Mg Tablet 5 Mg PO BID 30 Days Amiodarone Hcl 200 Mg Tablet 200 Mg PO BID 30 Days Aspirin 81 Mg Tab.chew 81 Mg PO DAILYWBKFT 30 Days Reported Furosemide 40 Mg Tablet 60 Mg PO DAILY Glipizide 10 Mg Tablet 1 Tab PO BID Seroquel (Quetiapine Fumarate) 200 Mg Tablet 0.5 Tab PO QHS Lovastatin 40 Mg Tablet 1 Tab PO HS Actos (Pioglitazone Hcl) 15 Mg Tablet 45 Mg PO DAILY Celexa (Citalopram Hydrobromide) 40 Mg Tablet 40 Mg PO DAILY Allergies Allergies: Coded Allergies: No Known Drug Allergies (Unverified , 11/26/18) ROS General: YES: Fatigue, Malaise; No: Chills, Night Sweats, Appetite, Other PSYCHOLOGICAL ROS: No: Anxiety, Behavioral Disorder, Concentration difficultie , Decreased libido, Depression, Disorientation, Hallucinations, Hostility, Irritablity, Memory difficulties, Mood Swings, Obsessive thoughts, Physical abuse, Sexual abuse, Sleep disturbances, Suicidal ideation, Other Eyes: No Blurry vision, No Decreased vision, No Double vision, No Dry eyes, No Excessive tearing, No Eye Pain, No Itchy Eyes, No Loss of vision, No Photophobia , No Scotomata, No Uses contacts, No Uses glasses, No Other HEENT: YES: Heacaches; No: Visual Changes, Hearing change, Nasal congestion, Nasal discharge, Oral lesions, Sinus pain, Sore Throat, Epistaxis, Sneezing, Snoring, Tinnitus, Vertigo, Vocal changes, Other ALLERGY AND IMMUNOLOGY: No: Hives, Insect Bite Sensitivity, Itchy/Watery Eyes, Nasal Congestion, Post Nasal Drip, Seasonal Allergies, Other Hematological and Lymphatic: No: Bleeding Problems, Blood Clots, Blood Transfusions, Brusing, Night Sweats, Pallor, Swollen Lymph Nodes, Other ENDOCRINE: No: Breast Changes, Galactorrhea, Hair Pattern Changes, Hot Flashes , Malaise/lethargy, Mood Swings, Palpitations, Polydipsia/polyuria, Skin Changes , Temperature Intolerance, Unexpected Weight Changes, Other Breast: No New/Changing Breast Lumps, No Nipple changes, No Nipple discharge, No Other Respiratory: YES: Cough, Orthopnea, Shortness of breath, SOB with excertion, Tachypnea, Wheezing; No: Hemoptysis, Pleuritic Pain, Sputum Changes, Stridor, Other Cardiovascular: yes Orthopnea, yes Paroxysmal Noc. Dyspnea, yes Edema; No Chest Pain, No Palpitations, No Lt Headedness, No Other Gastrointestinal: No Nausea, No Vomiting, No Abdominal Pain, No Diarrhea, No Constipation, No Melena, No Hematochezia, No Other Genitourinary: No Dysuria, No Frequency, No Incontinence, No Hematuria, No Retention, No Discharge, No Urgency, No Pain, No Flank Pain, No Other, No , No , No , No , No , No , No Musculoskeletal: No Gait Disturbance, No Joint Pain, No Joint Stiffness, No Joint Swelling, No Muscle Pain, No Muscular Weakness, No Pain In:, No Swelling In:, No Other Neurological: No Behavorial Changes, No Bowel/Bladder ControlChng, No Confusion , No Dizziness, No Gait Disturbance, No Headaches, No Impaired Coord/balance, No Memory Loss, No Numbness/Tingling, No Seizures, No Speech Problems, No Tremors, No Visual Changes, No Weakness, No Other Skin: No Dry Skin, No Eczema, No Hair Changes, No Lumps, No Mole Changes, No Mottling, No Nail Changes, No Pruritus, No Rash, No Skin Lesion Changes, No Other, No Acne Physical Exam General: Alert, Cooperative, moderate distress HEENT: PERRLA, EOMI, Mucous membr. moist/pink, Other (Bruising left medial inferior orbit) Lungs: Other (Bibasilar crackles, scattered wheezing) Heart: S1S2, RRR Abdomen: Normal bowel sounds, Soft, No tenderness, No hepatosplenomegaly, No masses, Other (Distended) Rectal Exam: not examined Extremities: No clubbing, No cyanosis, Normal pulses, Other (3+ Edema bilaterally) Skin: No breakdown, No significant lesion, Other (Stasis dermatitis) Neuro: Normal speech, Strength at 5/5 X4 ext, Normal tone, Sensation intact, Cranial nerves 3-12 NL, Reflexes 2+ Psych/Mental Status: Mental status NL, Mood NL Vitals Vitals Vital Signs Date Time Temp Pulse Resp B/P (MAP) Pulse Ox O2 Delivery O2 Flow Rate FiO2 11/26/18 19:45 94 Nasal Cannula 4.0 11/26/18 18:30 104 23 153/6 (55) 11/26/18 16:12 98.4 98.4 Labs Labs Laboratory Tests Test 11/26/18 16:25 11/26/18 17:45 11/26/18 20:56 White Blood Count 6.8 x10^3/uL (4.0-11.0) Red Blood Count 3.17 x10^6/uL (3.50-5.40) Hemoglobin 8.4 g/dL (12.0-15.5) Hematocrit 27.6 % (36.0-47.0) Mean Corpuscular Volume 87 fL (79-100) Mean Corpuscular Hemoglobin 27 pg (25-35) Mean Corpuscular Hemoglobin Concent 30 g/dL (31-37) Red Cell Distribution Width 17.1 % (11.5-14.5) Platelet Count 293 x10^3/uL (140-400) Neutrophils (%) (Auto) 73 % (31-73) Lymphocytes (%) (Auto) 16 % (24-48) Monocytes (%) (Auto) 10 % (0-9) Eosinophils (%) (Auto) 1 % (0-3) Basophils (%) (Auto) 1 % (0-3) Neutrophils # (Auto) 5.0 x10^3uL (1.8-7.7) Lymphocytes # (Auto) 1.1 x10^3/uL (1.0-4.8) Monocytes # (Auto) 0.7 x10^3/uL (0.0-1.1) Eosinophils # (Auto) 0.1 x10^3/uL (0.0-0.7) Basophils # (Auto) 0.0 x10^3/uL (0.0-0.2) Sodium Level 144 mmol/L (136-145) Potassium Level 4.0 mmol/L (3.5-5.1) Chloride Level 99 mmol/L (98-107) Carbon Dioxide Level 42 mmol/L (21-32) Anion Gap 3 (6-14) Blood Urea Nitrogen 18 mg/dL (7-20) Creatinine 1.7 mg/dL (0.6-1.0) Estimated GFR (Cockcroft-Gault) 30.6 BUN/Creatinine Ratio 11 (6-20) Glucose Level 201 mg/dL (70-99) Lactic Acid Level 2.5 mmol/L (0.4-2.0) Calcium Level 9.0 mg/dL (8.5-10.1) Total Bilirubin 0.5 mg/dL (0.2-1.0) Aspartate Amino Transf (AST/SGOT) 20 U/L (15-37) Alanine Aminotransferase (ALT/SGPT) 28 U/L (14-59) Alkaline Phosphatase 84 U/L (46-116) Creatine Kinase 35 U/L (26-192) Creatine Kinase MB (Mass) < 0.5 ng/mL (0.0-3.6) Creatine Kinase MB Relative Index % (0-4) Troponin I Quantitative < 0.017 ng/mL (0.000-0.055) YY-Igq-E-Type Natriuretic Peptide 6092 pg/mL (0-124) Total Protein 7.2 g/dL (6.4-8.2) Albumin 3.2 g/dL (3.4-5.0) Albumin/Globulin Ratio 0.8 (1.0-1.7) Urine Color Yellow Urine Clarity Clear Urine pH 6.0 Urine Specific [place] 1.015 Urine Protein Negative mg/dL (NEG-TRACE) Urine Glucose (UA) Negative mg/dL (NEG) Urine Ketones (Stick) Negative mg/dL (NEG) Urine Blood Negative (NEG) Urine Nitrite Negative (NEG) Urine Bilirubin Negative (NEG) Urine Urobilinogen Dipstick 1.0 mg/dL (0.2 mg/dL) Urine Leukocyte Esterase Negative (NEG) Urine RBC 0 /HPF (0-2) Urine WBC Occ /HPF (0-4) Urine Squamous Epithelial Cells Occ /LPF Urine Bacteria 0 /HPF (0-FEW) Urine Mucus Slight /LPF Glucose (Fingerstick) 119 mg/dL (70-99) Laboratory Tests Test 11/26/18 16:25 11/26/18 17:45 11/26/18 20:56 White Blood Count 6.8 x10^3/uL (4.0-11.0) Red Blood Count 3.17 x10^6/uL (3.50-5.40) Hemoglobin 8.4 g/dL (12.0-15.5) Hematocrit 27.6 % (36.0-47.0) Mean Corpuscular Volume 87 fL (79-100) Mean Corpuscular Hemoglobin 27 pg (25-35) Mean Corpuscular Hemoglobin Concent 30 g/dL (31-37) Red Cell Distribution Width 17.1 % (11.5-14.5) Platelet Count 293 x10^3/uL (140-400) Neutrophils (%) (Auto) 73 % (31-73) Lymphocytes (%) (Auto) 16 % (24-48) Monocytes (%) (Auto) 10 % (0-9) Eosinophils (%) (Auto) 1 % (0-3) Basophils (%) (Auto) 1 % (0-3) Neutrophils # (Auto) 5.0 x10^3uL (1.8-7.7) Lymphocytes # (Auto) 1.1 x10^3/uL (1.0-4.8) Monocytes # (Auto) 0.7 x10^3/uL (0.0-1.1) Eosinophils # (Auto) 0.1 x10^3/uL (0.0-0.7) Basophils # (Auto) 0.0 x10^3/uL (0.0-0.2) Sodium Level 144 mmol/L (136-145) Potassium Level 4.0 mmol/L (3.5-5.1) Chloride Level 99 mmol/L (98-107) Carbon Dioxide Level 42 mmol/L (21-32) Anion Gap 3 (6-14) Blood Urea Nitrogen 18 mg/dL (7-20) Creatinine 1.7 mg/dL (0.6-1.0) Estimated GFR (Cockcroft-Gault) 30.6 BUN/Creatinine Ratio 11 (6-20) Glucose Level 201 mg/dL (70-99) Lactic Acid Level 2.5 mmol/L (0.4-2.0) Calcium Level 9.0 mg/dL (8.5-10.1) Total Bilirubin 0.5 mg/dL (0.2-1.0) Aspartate Amino Transf (AST/SGOT) 20 U/L (15-37) Alanine Aminotransferase (ALT/SGPT) 28 U/L (14-59) Alkaline Phosphatase 84 U/L (46-116) Creatine Kinase 35 U/L (26-192) Creatine Kinase MB (Mass) < 0.5 ng/mL (0.0-3.6) Creatine Kinase MB Relative Index % (0-4) Troponin I Quantitative < 0.017 ng/mL (0.000-0.055) GF-Enq-A-Type Natriuretic Peptide 6092 pg/mL (0-124) Total Protein 7.2 g/dL (6.4-8.2) Albumin 3.2 g/dL (3.4-5.0) Albumin/Globulin Ratio 0.8 (1.0-1.7) Urine Color Yellow Urine Clarity Clear Urine pH 6.0 Urine Specific [place] 1.015 Urine Protein Negative mg/dL (NEG-TRACE) Urine Glucose (UA) Negative mg/dL (NEG) Urine Ketones (Stick) Negative mg/dL (NEG) Urine Blood Negative (NEG) Urine Nitrite Negative (NEG) Urine Bilirubin Negative (NEG) Urine Urobilinogen Dipstick 1.0 mg/dL (0.2 mg/dL) Urine Leukocyte Esterase Negative (NEG) Urine RBC 0 /HPF (0-2) Urine WBC Occ /HPF (0-4) Urine Squamous Epithelial Cells Occ /LPF Urine Bacteria 0 /HPF (0-FEW) Urine Mucus Slight /LPF Glucose (Fingerstick) 119 mg/dL (70-99) Images Images CXR - Findings suggests bilateral right more than left pleural effusions. Underlying atelectasis or pneumonia in the lower lobes not ruled out. Head CT - 1. No acute intracranial abnormality is identified. Cervical spine CT - 1. Exam is degraded by significant motion, no obvious displaced cervical spine fracture identified, somewhat limited evaluation for more subtle fracture. 2. Not fully included, there are at least small bilateral pleural effusions. 3. Poorly evaluated, there is multilevel cervical neural foramina compromise, multilevel facet degenerative change. 4. There is likely at least mild spinal stenosis C5-6 by disc osteophyte complex. There is [id number] C5-6 degenerative disc disease. VTE Prophylaxis Ordered VTE Prophylaxis Devices: Yes VTE Pharmacological Prophylaxi: No Assessment/Plan Assessment/Plan A/P: Acute hypercapnic-hypoxemic respiratory failure - BIPAP/CPAP overnight Acute diastolic congestive heart failure - with weight gain, edema, pulm infiltrates, BNP up will diurese Acute kidney injury - likely vasomotor vs cardiorenal. Previously she actually improved with diuresis, will treat as such Bilateral pulmonary infiltrates compatible with pulmonary edema, suspect cardiogenic - will diurese Elevated troponin - likely 2/2 stress, renal failure Prior atrial fibrillation - cardizem converted to sinus previously Anemia - a bit lower, likely from her chronic disease. Monitor. Transfuse for Hb < 8 with her CHF history Morbid obesity - will student loan counselor Tobacco dependence - continue counseling H/o GERD DM - Sliding scale FEN - Cardiac ADA diet, 2L fluid restriction PPX - heparin FULL CODE Inpatient for likely CHF exacerbation will be in for at least 2 midnights. KIANA ORTEZ MD Nov 26, 2018 21:02
[2018-11-26] MEDS: APIXABAN 5 MG TABLET. PO SCH (21:56)
[2018-11-26] MEDS: ATORVASTATIN CALCIUM 10 MG TABLET. PO SCH (21:56)
[2018-11-26] MEDS: QUEtiapine 100 MG TABLET. PO SCH (21:56)
[2018-11-26] MEDS: AMIODARONE HCL 200 MG TABLET. PO SCH (21:57)
[2018-11-26 23:00] VITALS: BP 111/39
[2018-11-27] VITALS (7 sets, daily range): BP systolic 109–126; BP diastolic 42–66
[2018-11-27] MEDS: IPRATRPIUM/ALBUTEROL 0.5/2.5MG 3 ML NEBU. NEB SCH ×7 (07:26→20:00)
[2018-11-27] MEDS ORDERED: glipiZIDE 5 MG TABLET PO SCH (07:30)
[2018-11-27] MEDS: INSULIN LISPRO 300 UNITS/3 ML INSULN.PEN. SQ SCH ×3 (08:00→17:00)
[2018-11-27] MEDS: METOPROLOL SUCC 24HR ER 25 MG TAB.ER.24H. PO SCH (09:24)
[2018-11-27] MEDS: AMIODARONE HCL 200 MG TABLET. PO SCH ×2 (09:24→21:20)
[2018-11-27] MEDS: PIOGLITAZONE 15 MG TABLET. PO SCH (09:25)
[2018-11-27] MEDS: ASPIRIN CHEWABLE 81 MG TABLET. PO SCH (09:25)
[2018-11-27] MEDS: glipiZIDE 5 MG TABLET PO SCH (09:25)
[2018-11-27] MEDS: APIXABAN 5 MG TABLET. PO SCH ×2 (09:25→21:19)
[2018-11-27] MEDS: CITALOPRAM 20 MG TABLET. PO SCH (09:25)
[2018-11-27] MEDS: FUROSEMIDE 40 MG/4 ML VIAL. IVP SCH ×2 (09:27→15:54)
--- NOTE | 2018-11-27 13:09 | PDOC2 ---
CARDIAC CONSULT DATE OF CONSULT Date of Consult DATE: 11/27/18 TIME: 13:00 REASON FOR CONSULT Reason for Consult: CHF REFERRING PHYSICIAN Referring Physician: Wily SOURCE Source: Chart review, Patient HISTORY OF PRESENT ILLNESS HISTORY OF PRESENT ILLNESS This is a pleasant 63 yo female admitted for complains of SOA. Reports that in the last 2-3 days she has been having palpitations. Her O2 sats drops to 60s with ambulation. No chest pain, no nausea or vomiting. 2 dasy ago she fell, lost her balance, no lost of consciousness. No dizzy spells at that time. Yesterday she felt that her legs are more swollen. and also more SOA. Positive for PND despite use of CPAP. She has not been weighing herself citing that her scale is broken. She has been taking her cardiac meds regularly. She has been urinating more as well. PAST MEDICAL HISTORY Past Medical History Cardiovascular: HTN, PAFIB/flutter, CHF, HLP Pulmonary: COPD, Other (MARIE), pneumonia CENTRAL NERVOUS SYSTEM: Other (no pertinent hx) GI: GERD Psych: Anxiety, Depression, Schizophrenia Musculoskeletal: Osteoarthritis Infectious disease: No pertinent hx ENT: No pertinent hx Renal/: CKD, UTI Endocrine: Diabetes Dermatology: No pertinent hx PAST SURGICAL HISTORY Past Surgical History: Tubal Ligation, Other (dialysis cath placement) FAMILY HISTORY Family History Cancer, Coronary Artery Disease, Diabetes SOCIAL HISTORY Social History Cancer, Coronary Artery Disease, Diabetes CURRENT MEDICATIONS CURRENT MEDICATIONS Current Medications Medications (Trade) Dose Ordered Sig/Thuy Route PRN Reason Start Time Stop Time Status Last Admin Dose Admin Albuterol/ Ipratropium (Duoneb) 3 ml 1X ONCE NEB 11/26/18 16:15 11/26/18 16:16 DC 11/26/18 16:29 Furosemide (Lasix) 60 mg 1X ONCE IVP 11/26/18 18:00 11/26/18 18:01 DC 11/26/18 18:52 Ceftriaxone Sodium (Rocephin) 1 gm 1X ONCE IVP 11/26/18 18:00 11/26/18 18:02 DC 11/26/18 18:47 Azithromycin 250 ml @ 250 mls/hr 1X ONCE IV 11/26/18 18:00 11/26/18 18:59 DC 11/26/18 19:00 Albuterol/ Ipratropium (Duoneb) 3 ml RTQID NEB 11/26/18 20:00 11/27/18 19:59 11/27/18 10:53 Furosemide (Lasix) 40 mg BID92 IVP 11/27/18 09:00 11/27/18 09:27 Amiodarone HCl (Cordarone) 200 mg BID PO 11/26/18 21:00 11/27/18 09:24 Apixaban (Eliquis) 5 mg BID PO 11/26/18 21:00 11/27/18 09:25 Aspirin (Children'S Aspirin) 81 mg DAILYWBKFT PO 11/27/18 08:00 11/27/18 09:25 Metoprolol Succinate (Toprol Xl) 25 mg DAILY PO 11/27/18 09:00 11/27/18 09:24 Citalopram Hydrobromide (CeleXA) 40 mg DAILY PO 11/27/18 09:00 11/27/18 09:25 Atorvastatin Calcium (Lipitor) 10 mg QHS PO 11/26/18 21:00 11/26/18 21:56 Pioglitazone HCl (Actos) 45 mg DAILY PO 11/27/18 09:00 11/27/18 09:25 Quetiapine Fumarate (SEROquel) 100 mg QHS PO 11/26/18 21:30 11/26/18 21:56 Glipizide (Glucotrol) 10 mg DAILYAC PO 11/27/18 07:30 11/27/18 09:25 ALLERGIES ALLERGIES: Coded Allergies: No Known Drug Allergies (Unverified , 11/26/18) ROS Review of System 14 point ROS evaluated with pertinent positives noted per HPI PHYSICAL EXAM General: Alert, Oriented X3, Cooperative, No acute distress HEENT: Atraumatic, Mucous membr. moist/pink Lungs: Other (basilar crackles) Heart: Regular rate (SR), Other (distnat heart sounds) Abdomen: Soft, Other (obese) Extremities: No cyanosis, Other (3+ bilateral LE pitting edema) Skin: No breakdown, No significant lesion Neuro: Normal speech, Sensation intact Psych/Mental Status: Mental status NL, Mood NL MUSCULOSKELETAL: Osteoarthritic changes both hands VITALS VITALS Vital Signs Date Time Temp Pulse Resp B/P (MAP) Pulse Ox O2 Delivery O2 Flow Rate FiO2 11/27/18 10:54 Nasal Cannula 3.0 11/27/18 09:24 103 117/56 11/27/18 07:27 95 11/27/18 07:00 97.7 17 97.7 LABS Lab: Laboratory Tests Test 11/26/18 16:25 11/26/18 17:45 11/26/18 20:56 11/27/18 09:24 White Blood Count 6.8 x10^3/uL (4.0-11.0) Red Blood Count 3.17 x10^6/uL (3.50-5.40) Hemoglobin 8.4 g/dL (12.0-15.5) Hematocrit 27.6 % (36.0-47.0) Mean Corpuscular Volume 87 fL (79-100) Mean Corpuscular Hemoglobin 27 pg (25-35) Mean Corpuscular Hemoglobin Concent 30 g/dL (31-37) Red Cell Distribution Width 17.1 % (11.5-14.5) Platelet Count 293 x10^3/uL (140-400) Neutrophils (%) (Auto) 73 % (31-73) Lymphocytes (%) (Auto) 16 % (24-48) Monocytes (%) (Auto) 10 % (0-9) Eosinophils (%) (Auto) 1 % (0-3) Basophils (%) (Auto) 1 % (0-3) Neutrophils # (Auto) 5.0 x10^3uL (1.8-7.7) Lymphocytes # (Auto) 1.1 x10^3/uL (1.0-4.8) Monocytes # (Auto) 0.7 x10^3/uL (0.0-1.1) Eosinophils # (Auto) 0.1 x10^3/uL (0.0-0.7) Basophils # (Auto) 0.0 x10^3/uL (0.0-0.2) Sodium Level 144 mmol/L (136-145) Potassium Level 4.0 mmol/L (3.5-5.1) Chloride Level 99 mmol/L (98-107) Carbon Dioxide Level 42 mmol/L (21-32) Anion Gap 3 (6-14) Blood Urea Nitrogen 18 mg/dL (7-20) Creatinine 1.7 mg/dL (0.6-1.0) Estimated GFR (Cockcroft-Gault) 30.6 BUN/Creatinine Ratio 11 (6-20) Glucose Level 201 mg/dL (70-99) Lactic Acid Level 2.5 mmol/L (0.4-2.0) Calcium Level 9.0 mg/dL (8.5-10.1) Total Bilirubin 0.5 mg/dL (0.2-1.0) Aspartate Amino Transf (AST/SGOT) 20 U/L (15-37) Alanine Aminotransferase (ALT/SGPT) 28 U/L (14-59) Alkaline Phosphatase 84 U/L (46-116) Creatine Kinase 35 U/L (26-192) Creatine Kinase MB (Mass) < 0.5 ng/mL (0.0-3.6) Creatine Kinase MB Relative Index % (0-4) Troponin I Quantitative < 0.017 ng/mL (0.000-0.055) FO-Its-M-Type Natriuretic Peptide 6092 pg/mL (0-124) Total Protein 7.2 g/dL (6.4-8.2) Albumin 3.2 g/dL (3.4-5.0) Albumin/Globulin Ratio 0.8 (1.0-1.7) Urine Color Yellow Urine Clarity Clear Urine pH 6.0 Urine Specific [place] 1.015 Urine Protein Negative mg/dL (NEG-TRACE) Urine Glucose (UA) Negative mg/dL (NEG) Urine Ketones (Stick) Negative mg/dL (NEG) Urine Blood Negative (NEG) Urine Nitrite Negative (NEG) Urine Bilirubin Negative (NEG) Urine Urobilinogen Dipstick 1.0 mg/dL (0.2 mg/dL) Urine Leukocyte Esterase Negative (NEG) Urine RBC 0 /HPF (0-2) Urine WBC Occ /HPF (0-4) Urine Squamous Epithelial Cells Occ /LPF Urine Bacteria 0 /HPF (0-FEW) Urine Mucus Slight /LPF Glucose (Fingerstick) 119 mg/dL (70-99) 109 mg/dL (70-99) Test 11/27/18 11:52 Glucose (Fingerstick) 95 mg/dL (70-99) ECHOCARDIOGRAM ECHOCARDIOGRAM <Conclusion> The left ventricular systolic function is normal and the ejection fraction is within normal range. The Ejection Fraction is 55-60%. The right ventricle is mildly dilated. The right ventricular systolic function is normal. Doppler and Color Flow revealed mild tricuspid regurgitation.There is moderate pulmonary hypertension.The PA pressure was estimated at 57 mmHg. Technically very difficult study DATE: 07/21/18 1605 STRESS TEST STRESS TEST Conclusion 1. Regadenoson cardioisotope stress test did not show any evidence of ischemia or infarct. 2. Normal left ventricular systolic function with ejection fraction calculated at 82%. 3. Low risk for cardiac events. DATE: 08/30/17 1039 ASSESSMENT/PLAN ASSESSMENT/PLAN 1. Acute on chronic diastolic CHF; last LVEF 55-60%, better. 2. Paroxysmal AFIB/flutter: RVR at times. Currently SR. Continue with have paroxysmal episodes. 3. CKD 3-4: Appeas to be at her baseline 4. MARIE/Morbid obesity/pul HTN: CPAP at home 5. COPD/pulmonary HTN with chronic tobaccoism 6. DM2/HLP Recommendations 1. Eliquis, metoprolol. Appears to be failed therapy with amiodarone. Will need EP referral. 2. Continue secondary prevention measures. TTE today and will have CT chest no contrast and note any significant pulmonary fibrosis 3. Lasix therapy. Discussed daily wt. SMoking cessation 4. Eliquis for stroke prevention MARITZA BOOGIE APRN Nov 27, 2018 13:09
--- NOTE | 2018-11-27 14:58 | NUR ---
SW following pt for anticipated dc needs. Chart reviewed. Pt lives at home with spouse and has home 02 through [facility]. No discharge recommendation or SW needs noted at this time. SW will continue to follow pt.
[2018-11-27] MEDS: ANTI-COAG MONITOR BY PHARMACY. MC PRN ×2 (15:07→18:09)
--- NOTE | 2018-11-27 16:04 | RAD ---
Chest CT without contrast Clinical indications: Persistent dyspnea. COPD. TECHNIQUE: Noncontrast helical CT scanning of the chest was performed. Without contrast, the sensitivity to detect organ pathology is decreased. PQRS compliance Statement One or more of the following individualized dose reduction techniques were utilized for this study: 1. Automated exposure control 2. Adjustment of the mA and/or kV according to patient size 3. Use of iterative reconstruction technique COMPARISON: None available. FINDINGS: No abnormally enlarged thoracic lymphadenopathy is evident. No focal aneurysmal dilatation of the thoracic aorta is seen. The heart size is mildly enlarged. No abnormal pericardial effusion is seen. A moderate size right-sided pleural effusion is seen. Minimal left-sided pleural effusion is seen. There is associated compressive atelectasis of the right lower lobe which is poorly aerated. Certainly underlying pneumonia could be present clinically. There is linear atelectasis within the right apex. There is peripheral groundglass lung infiltrate within the right upper lobe which most likely represents atelectasis rather than pulmonary edema given it's peripheral location. There is atelectasis or infiltrate of the medial segment of the right middle lobe. There is mild posterior left lung base atelectasis. Central ill-defined groundglass lung infiltrate is seen within the left lower lobe and left upper lobe which may be secondary to atelectasis or pulmonary edema. Prominent left pericardial fat pad is seen which partially compresses the inferior segment of the lingula. There is also adjacent atelectasis of the anterior basal segment of the left lower lobe. No pneumothorax is seen. No lytic process is seen. No adrenal mass is evident. The left adrenal gland is not completely seen in this study. IMPRESSION: Moderate size right-sided pleural effusion and associated compressive almost complete atelectasis of the right lower lobe. Certainly underlying pneumonia may be present clinically. Minimal left-sided pleural effusion with mild posterior left lung base atelectasis. Peripheral subpleural groundglass lung infiltrates within the right upper lobe most likely reflect atelectasis given the peripheral location as opposed to pulmonary edema. More central ill-defined groundglass lung infiltrates are seen within the left upper lobe and left lower lobe which could represent atelectasis or pulmonary edema. Cardiomegaly. No significant calcified atheromatous disease of the coronary arteries is seen. Electronically signed by: Milo Fowler MD (11/27/2018 4:01 PM) [place] [id number]
--- NOTE | 2018-11-27 17:10 | NUR ---
RECEIVED CALL FROM NURSE PRACTIONER FOR CARDIOLOGY, REQUESTED THAT THIS FARMWORKER FUR CALL AND OBTAIN A ORDER FROM THE PRIMARY DOCTOR REGARDING PATIENTS TSH LEVEL 11.2. WILL CALL DR. HANNA TO OBTAIN ORDERS.
--- NOTE | 2018-11-27 19:26 | PDOC ---
PROGRESS NOTES Chief Complaint Chief Complaint Acute hypercapnic-hypoxemic respiratory failure - BIPAP/CPAP overnight Acute diastolic congestive heart failure - with weight gain, edema, pulm infiltrates, BNP up will diurese Acute kidney injury - likely vasomotor vs cardiorenal. Previously she actually improved with diuresis, will treat as such Bilateral pulmonary infiltrates compatible with pulmonary edema, suspect cardiogenic - will diurese Elevated troponin - likely 2/2 stress, renal failure Prior atrial fibrillation - cardizem converted to sinus previously Anemia - a bit lower, likely from her chronic disease. Monitor. 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5 84 18 126/66 (86) 97.5 Physical Exam General: Alert, Oriented X3, Cooperative, No acute distress Heart: Regular rate (SR), Other (distnat heart sounds) Lungs: Clear, Crackles Abdomen: Soft, Other (obese) Extremities: No cyanosis, Other (3+ bilateral LE pitting edema) Skin: No breakdown, No significant lesion Labs LABS Laboratory Tests Test 11/26/18 20:56 11/27/18 09:24 11/27/18 11:52 11/27/18 16:10 Glucose (Fingerstick) 119 mg/dL (70-99) 109 mg/dL (70-99) 95 mg/dL (70-99) 103 mg/dL (70-99) Review of Systems Review of Systems 10 point of review of systems only pertinent as per hpi otherwise negative. Assessment and Plan Assessmemt and Plan Problems Medical Problems: (1) Anasarca Status: Acute (2) CAP (community acquired pneumonia) Status: Acute (3) CHF (congestive heart failure) Status: Acute (4) COPD exacerbation Status: Acute (5) Pleural effusion Status: Acute Comment Review of Relevant I have reviewed the following items ritesh (where applicable) has been applied. Labs Laboratory Tests Test 11/26/18 16:25 11/26/18 17:45 11/26/18 20:56 11/27/18 09:24 White Blood Count 6.8 x10^3/uL (4.0-11.0) Red Blood Count 3.17 x10^6/uL (3.50-5.40) Hemoglobin 8.4 g/dL (12.0-15.5) Hematocrit 27.6 % (36.0-47.0) Mean Corpuscular Volume 87 fL (79-100) Mean Corpuscular Hemoglobin 27 pg (25-35) Mean Corpuscular Hemoglobin Concent 30 g/dL (31-37) Red Cell Distribution Width 17.1 % (11.5-14.5) Platelet Count 293 x10^3/uL (140-400) Neutrophils (%) (Auto) 73 % (31-73) Lymphocytes (%) (Auto) 16 % (24-48) Monocytes (%) (Auto) 10 % (0-9) Eosinophils (%) (Auto) 1 % (0-3) Basophils (%) (Auto) 1 % (0-3) Neutrophils # (Auto) 5.0 x10^3uL (1.8-7.7) Lymphocytes # (Auto) 1.1 x10^3/uL (1.0-4.8) Monocytes # (Auto) 0.7 x10^3/uL (0.0-1.1) Eosinophils # (Auto) 0.1 x10^3/uL (0.0-0.7) Basophils # (Auto) 0.0 x10^3/uL (0.0-0.2) Sodium Level 144 mmol/L (136-145) Potassium Level 4.0 mmol/L (3.5-5.1) Chloride Level 99 mmol/L (98-107) Carbon Dioxide Level 42 mmol/L (21-32) Anion Gap 3 (6-14) Blood Urea Nitrogen 18 mg/dL (7-20) Creatinine 1.7 mg/dL (0.6-1.0) Estimated GFR (Cockcroft-Gault) 30.6 BUN/Creatinine Ratio 11 (6-20) Glucose Level 201 mg/dL (70-99) Lactic Acid Level 2.5 mmol/L (0.4-2.0) Calcium Level 9.0 mg/dL (8.5-10.1) Total Bilirubin 0.5 mg/dL (0.2-1.0) Aspartate Amino Transf (AST/SGOT) 20 U/L (15-37) Alanine Aminotransferase (ALT/SGPT) 28 U/L (14-59) Alkaline Phosphatase 84 U/L (46-116) Creatine Kinase 35 U/L (26-192) Creatine Kinase MB (Mass) < 0.5 ng/mL (0.0-3.6) Creatine Kinase MB Relative Index % (0-4) Troponin I Quantitative < 0.017 ng/mL (0.000-0.055) AU-Gnf-U-Type Natriuretic Peptide 6092 pg/mL (0-124) Total Protein 7.2 g/dL (6.4-8.2) Albumin 3.2 g/dL (3.4-5.0) Albumin/Globulin Ratio 0.8 (1.0-1.7) Thyroid Stimulating Hormone (TSH) 11.299 uIU/mL (0.358-3.74) Urine Color Yellow Urine Clarity Clear Urine pH 6.0 Urine Specific [place] 1.015 Urine Protein Negative mg/dL (NEG-TRACE) Urine Glucose (UA) Negative mg/dL (NEG) Urine Ketones (Stick) Negative mg/dL (NEG) Urine Blood Negative (NEG) Urine Nitrite Negative (NEG) Urine Bilirubin Negative (NEG) Urine Urobilinogen Dipstick 1.0 mg/dL (0.2 mg/dL) Urine Leukocyte Esterase Negative (NEG) Urine RBC 0 /HPF (0-2) Urine WBC Occ /HPF (0-4) Urine Squamous Epithelial Cells Occ /LPF Urine Bacteria 0 /HPF (0-FEW) Urine Mucus Slight /LPF Glucose (Fingerstick) 119 mg/dL (70-99) 109 mg/dL (70-99) Test 11/27/18 11:52 11/27/18 16:10 Glucose (Fingerstick) 95 mg/dL (70-99) 103 mg/dL (70-99) Laboratory Tests Test 11/26/18 20:56 11/27/18 09:24 11/27/18 11:52 11/27/18 16:10 Glucose (Fingerstick) 119 mg/dL (70-99) 109 mg/dL (70-99) 95 mg/dL (70-99) 103 mg/dL (70-99) Microbiology 11/26/18 Blood Culture - Preliminary, Resulted NO GROWTH AFTER 1 DAY Medications Current Medications Albuterol/ Ipratropium (Duoneb) 3 ml 1X ONCE NEB Last administered on 16:29; Start 11/26/18 at 16:15; Stop 11/26/18 at 16:16; Status DC Furosemide (Lasix) 60 mg 1X ONCE IVP Last administered on 11/26/18 18:52; Start 11/26/18 at 18:00; Stop 11/26/18 at 18:01; Status DC Ceftriaxone Sodium (Rocephin) 1 gm 1X ONCE IVP Last administered on 11/26/18 18:47; Start 11/26/18 at 18:00; Stop 11/26/18 at 18:02; Status DC Azithromycin 250 ml @ 250 mls/hr 1X ONCE IV Last administered on 11/26/18 19: 00; Start 11/26/18 at 18:00; Stop 11/26/18 at 18:59; Status DC Ondansetron HCl (Zofran) 4 mg PRN Q8HRS PRN IV NAUSEA/VOMITING; Start 11/26/18 at 18:15; Stop 11/27/18 at 18:14; Status DC Albuterol/ Ipratropium (Duoneb) 3 ml RTQID NEB Last administered on 11/27/18 10 :53; Start 11/26/18 at 20:00; Stop 11/27/18 at 19:59 Furosemide (Lasix) 40 mg BID92 IVP Last administered on 11/27/18 15:54; Start 11/27/18 at 09:00 Amiodarone HCl (Cordarone) 200 mg BID PO Last administered on 11/27/18 09:24; Start 11/26/18 at 21:00 Apixaban (Eliquis) 5 mg BID PO Last administered on 11/27/18 09:25; Start at 21:00 Aspirin (Children'S Aspirin) 81 mg DAILYWBKFT PO Last administered on 11/27/18 09:25; Start 11/27/18 at 08:00 Albuterol/ Ipratropium (Duoneb) 3 ml RTQID NEB Last administered on 11/27/18 14 :59; Start 11/26/18 at 21:00 Metoprolol Succinate (Toprol Xl) 25 mg DAILY PO Last administered on 11/27/18 09:24; Start 11/27/18 at 09:00 Citalopram Hydrobromide (CeleXA) 40 mg DAILY PO Last administered on 11/27/18 09:25; Start 11/27/18 at 09:00 Glipizide (Glucotrol) 10 mg BIDBFRMEAL PO ; Start 11/27/18 at 07:30; Stop at 07:30; Status DC Atorvastatin Calcium (Lipitor) 10 mg QHS PO Last administered on 11/26/18 21:56 ; Start 11/26/18 at 21:00 Pioglitazone HCl (Actos) 45 mg DAILY PO Last administered on 11/27/18 09:25; Start 11/27/18 at 09:00 Quetiapine Fumarate (SEROquel) 100 mg QHS PO Last administered on 11/26/18 21: 56; Start 11/26/18 at 21:30 Insulin Human Lispro (HumaLOG) 0-5 UNITS TIDWMEALS SQ ; Start 11/27/18 at 08:00 Dextrose (Dextrose 50%-Water Syringe) 12.5 gm PRN Q15MIN PRN IV SEE COMMENTS; Start 11/26/18 at 21:00 Glipizide (Glucotrol) 10 mg DAILYAC PO Last administered on 11/27/18 09:25; Start 11/27/18 at 07:30 Info (Anti-Coagulation Monitoring By Pharmacy) 1 each PRN DAILY PRN MC SEE COMMENTS Last administered on 11/27/18 18:09; Start 11/27/18 at 15:00 Levothyroxine Sodium (Synthroid) 100 mcg DAILY06 PO ; Start 11/28/18 at 06:00 Active Scripts Active Metoprolol Succinate ( Xl ) (Metoprolol Succinate) 25 Mg Tab.er.24h 25 Mg PO DAILY 30 Days Duoneb 0.5-3(2.5) Mg/3 Ml (Albuterol/Ipratropium) 3 Ml Ampul.neb 3 Ml NEB RTQID 30 Days Eliquis (Apixaban) 5 Mg Tablet 5 Mg PO BID 30 Days Amiodarone Hcl 200 Mg Tablet 200 Mg PO BID 30 Days Aspirin 81 Mg Tab.chew 81 Mg PO DAILYWBKFT 30 Days Reported Furosemide 40 Mg Tablet 60 Mg PO DAILY Glipizide 10 Mg Tablet 1 Tab PO BID Seroquel (Quetiapine Fumarate) 200 Mg Tablet 0.5 Tab PO QHS Lovastatin 40 Mg Tablet 1 Tab PO HS Actos (Pioglitazone Hcl) 15 Mg Tablet 45 Mg PO DAILY Celexa (Citalopram Hydrobromide) 40 Mg Tablet 40 Mg PO DAILY Vitals/I & O Vital Sign - Last 24 Hours 11/26/18 11/26/18 11/26/18 11/26/18 19:45 20:25 21:57 23:00 Temp 97.8 97.8 Pulse 104 104 Resp 20 B/P (MAP) 153/66 111/39 (63) Pulse Ox 94 O2 Delivery Nasal Cannula Nasal Cannula BiPAP/CPAP O2 Flow Rate 4.0 3.0 11/27/18 11/27/18 11/27/18 11/27/18 03:05 03:40 03:40 07:00 Temp 97.6 97.6 97.7 97.6 97.6 97.7 Pulse 103 103 84 Resp 20 20 17 B/P (MAP) 117/56 (76) 117/56 (76) 115/42 (66) Pulse Ox 91 94 92 O2 Delivery BiPAP/CPAP Nasal Cannula Nasal Cannula O2 Flow Rate 3.0 4.0 4.0 11/27/18 11/27/18 11/27/18 11/27/18 07:27 09:24 09:24 10:54 Pulse 103 103 B/P (MAP) 117/56 117/56 Pulse Ox 95 O2 Delivery Nasal Cannula Nasal Cannula O2 Flow Rate 3.0 3.0 11/27/18 11/27/18 11/27/18 12:00 15:00 15:00 Temp 97.7 97.5 97.7 97.5 Pulse 84 84 Resp 17 18 B/P (MAP) 115/42 (66) 126/66 (86) Pulse Ox 92 97 95 O2 Delivery Nasal Cannula Nasal Cannula Nasal Cannula O2 Flow Rate 4.0 4.0 3.0 Intake and Output 3/6/19 3/6/19 3/7/19 14:59 22:59 06:59 Output Total 225 ml 500 ml Balance -225 ml -500 ml YANNI TELLEZ MD Nov 27, 2018 19:25
[2018-11-27] MEDS: QUEtiapine 100 MG TABLET. PO SCH (21:19)
[2018-11-27] MEDS: ATORVASTATIN CALCIUM 10 MG TABLET. PO SCH (21:19)
[2018-11-28 03:00] VITALS: BP 124/43
[2018-11-28] MEDS ORDERED: LEVOTHYROXINE 100 MCG TABLET PO SCH (06:00)
[2018-11-28 07:00] VITALS: BP 130/40
[2018-11-28] MEDS: IPRATRPIUM/ALBUTEROL 0.5/2.5MG 3 ML NEBU. NEB SCH ×4 (07:39→19:41)
[2018-11-28] MEDS: INSULIN LISPRO 300 UNITS/3 ML INSULN.PEN. SQ SCH ×3 (07:52→16:51)
[2018-11-28] MEDS: glipiZIDE 5 MG TABLET PO SCH (08:42)
[2018-11-28] MEDS: ASPIRIN CHEWABLE 81 MG TABLET. PO SCH (08:42)
[2018-11-28] MEDS: PIOGLITAZONE 15 MG TABLET. PO SCH (08:43)
[2018-11-28] MEDS: FUROSEMIDE 40 MG/4 ML VIAL. IVP SCH ×2 (08:43→15:38)
[2018-11-28] MEDS: METOPROLOL SUCC 24HR ER 25 MG TAB.ER.24H. PO SCH (08:47)
[2018-11-28] MEDS: APIXABAN 5 MG TABLET. PO SCH ×2 (08:48→20:32)
[2018-11-28] MEDS: AMIODARONE HCL 200 MG TABLET. PO SCH ×2 (08:48→20:32)
[2018-11-28] MEDS: CITALOPRAM 20 MG TABLET. PO SCH (08:48)
[2018-11-28 11:00] VITALS: BP 118/47
[2018-11-28 12:08] LABS: BASO % 0 % (0-3); EOS # 0.1 x10^3/uL (0.0-0.7); EOS % 2 % (0-3); HEMATOCRIT 23.4 % (36.0-47.0); HEMOGLOBIN 7.2 g/dL (12.0-15.5); LYMPH # 1.4 x10^3/uL (1.0-4.8); LYMPH % 29 % (24-48); MEAN CORPUSCULAR HEMOGLOBIN 26 pg (25-35); MEAN CORPUSCULAR HGB CONC 31 g/dL (31-37); MEAN CORPUSCULAR VOLUME 86 fL (79-100); MONO # 0.6 x10^3/uL (0.0-1.1); MONO % 11 % (0-9); NEUT # 2.9 x10^3uL (1.8-7.7); NEUT % 57 % (31-73); PLATELET COUNT 208 x10^3/uL (140-400); RED BLOOD COUNT 2.73 x10^6/uL (3.50-5.40); RED CELL DISTRIBUTION WIDTH 17.1 % (11.5-14.5)
[2018-11-28] MEDS: DOXYCYCLINE HYCLATE 100 MG in IV DEXTROSE 5% 100ML 100 ML IV SCH ×2 (12:20→20:33)
[2018-11-28 12:43] LABS: BLOOD UREA NITROGEN 19 mg/dL (7-20); CALCIUM 8.8 mg/dL (8.5-10.1); CHLORIDE 108 mmol/L (98-107); CREATININE 1.6 mg/dL (0.6-1.0); GFR 32.8; GLUCOSE 113 mg/dL (70-99); POTASSIUM 3.7 mmol/L (3.5-5.1); SODIUM 156 mmol/L (136-145)
[2018-11-28 12:44] LABS: CARBON DIOXIDE > 45 mmol/L (21-32)
[2018-11-28 13:07] LABS: FREE T4 1.06 ng/dL (0.76-1.46); THYROID STIM HORMONE (TSH) 10.361 uIU/mL (0.358-3.74)
--- NOTE | 2018-11-28 14:53 | NUR ---
Dr. Rubalcava looked at right lung and couldn't find enough fluid to safely drain. Pt. returned to her room on 5th floor, will continue to monitor.
[2018-11-28 15:00] VITALS: BP 124/56
--- NOTE | 2018-11-28 15:45 | PDOC ---
PULMONARY PROGRESS NOTES Vitals Vital Signs Date Time Temp Pulse Resp B/P (MAP) Pulse Ox O2 Delivery O2 Flow Rate FiO2 11/28/18 15:30 94 BiPAP/CPAP 11/28/18 11:25 3.0 11/28/18 11:00 97.7 105 22 118/47 (70) 97.7 General: Alert, No acute distress Lungs: Clear, Crackles Cardiovascular: S1, S2 Abdomen: Soft, Other Extremities: Other Labs Laboratory Tests Test 11/26/18 16:25 11/26/18 17:45 11/26/18 20:56 11/27/18 09:24 White Blood Count 6.8 x10^3/uL (4.0-11.0) Red Blood Count 3.17 x10^6/uL (3.50-5.40) Hemoglobin 8.4 g/dL (12.0-15.5) Hematocrit 27.6 % (36.0-47.0) Mean Corpuscular Volume 87 fL (79-100) Mean Corpuscular Hemoglobin 27 pg (25-35) Mean Corpuscular Hemoglobin Concent 30 g/dL (31-37) Red Cell Distribution Width 17.1 % (11.5-14.5) Platelet Count 293 x10^3/uL (140-400) Neutrophils (%) (Auto) 73 % (31-73) Lymphocytes (%) (Auto) 16 % (24-48) Monocytes (%) (Auto) 10 % (0-9) Eosinophils (%) (Auto) 1 % (0-3) Basophils (%) (Auto) 1 % (0-3) Neutrophils # (Auto) 5.0 x10^3uL (1.8-7.7) Lymphocytes # (Auto) 1.1 x10^3/uL (1.0-4.8) Monocytes # (Auto) 0.7 x10^3/uL (0.0-1.1) Eosinophils # (Auto) 0.1 x10^3/uL (0.0-0.7) Basophils # (Auto) 0.0 x10^3/uL (0.0-0.2) Sodium Level 144 mmol/L (136-145) Potassium Level 4.0 mmol/L (3.5-5.1) Chloride Level 99 mmol/L (98-107) Carbon Dioxide Level 42 mmol/L (21-32) Anion Gap 3 (6-14) Blood Urea Nitrogen 18 mg/dL (7-20) Creatinine 1.7 mg/dL (0.6-1.0) Estimated GFR (Cockcroft-Gault) 30.6 BUN/Creatinine Ratio 11 (6-20) Glucose Level 201 mg/dL (70-99) Lactic Acid Level 2.5 mmol/L (0.4-2.0) Calcium Level 9.0 mg/dL (8.5-10.1) Total Bilirubin 0.5 mg/dL (0.2-1.0) Aspartate Amino Transf (AST/SGOT) 20 U/L (15-37) Alanine Aminotransferase (ALT/SGPT) 28 U/L (14-59) Alkaline Phosphatase 84 U/L (46-116) Creatine Kinase 35 U/L (26-192) Creatine Kinase MB (Mass) < 0.5 ng/mL (0.0-3.6) Creatine Kinase MB Relative Index % (0-4) Troponin I Quantitative < 0.017 ng/mL (0.000-0.055) VB-Shd-T-Type Natriuretic Peptide 6092 pg/mL (0-124) Total Protein 7.2 g/dL (6.4-8.2) Albumin 3.2 g/dL (3.4-5.0) Albumin/Globulin Ratio 0.8 (1.0-1.7) Thyroid Stimulating Hormone (TSH) 11.299 uIU/mL (0.358-3.74) Urine Color Yellow Urine Clarity Clear Urine pH 6.0 Urine Specific [place] 1.015 Urine Protein Negative mg/dL (NEG-TRACE) Urine Glucose (UA) Negative mg/dL (NEG) Urine Ketones (Stick) Negative mg/dL (NEG) Urine Blood Negative (NEG) Urine Nitrite Negative (NEG) Urine Bilirubin Negative (NEG) Urine Urobilinogen Dipstick 1.0 mg/dL (0.2 mg/dL) Urine Leukocyte Esterase Negative (NEG) Urine RBC 0 /HPF (0-2) Urine WBC Occ /HPF (0-4) Urine Squamous Epithelial Cells Occ /LPF Urine Bacteria 0 /HPF (0-FEW) Urine Mucus Slight /LPF Glucose (Fingerstick) 119 mg/dL (70-99) 109 mg/dL (70-99) Test 3/7/19 11:52 11/27/18 16:10 11/27/18 21:08 11/28/18 07:34 Glucose (Fingerstick) 95 mg/dL (70-99) 103 mg/dL (70-99) 171 mg/dL (70-99) 101 mg/dL (70-99) Test 11/28/18 11:10 11/28/18 11:50 Glucose (Fingerstick) 117 mg/dL (70-99) White Blood Count 5.0 x10^3/uL (4.0-11.0) Red Blood Count 2.73 x10^6/uL (3.50-5.40) Hemoglobin 7.2 g/dL (12.0-15.5) Hematocrit 23.4 % (36.0-47.0) Mean Corpuscular Volume 86 fL (79-100) Mean Corpuscular Hemoglobin 26 pg (25-35) Mean Corpuscular Hemoglobin Concent 31 g/dL (31-37) Red Cell Distribution Width 17.1 % (11.5-14.5) Platelet Count 208 x10^3/uL (140-400) Neutrophils (%) (Auto) 57 % (31-73) Lymphocytes (%) (Auto) 29 % (24-48) Monocytes (%) (Auto) 11 % (0-9) Eosinophils (%) (Auto) 2 % (0-3) Basophils (%) (Auto) 0 % (0-3) Neutrophils # (Auto) 2.9 x10^3uL (1.8-7.7) Lymphocytes # (Auto) 1.4 x10^3/uL (1.0-4.8) Monocytes # (Auto) 0.6 x10^3/uL (0.0-1.1) Eosinophils # (Auto) 0.1 x10^3/uL (0.0-0.7) Basophils # (Auto) 0.0 x10^3/uL (0.0-0.2) Sodium Level 156 mmol/L (136-145) Potassium Level 3.7 mmol/L (3.5-5.1) Chloride Level 108 mmol/L (98-107) Carbon Dioxide Level > 45 mmol/L (21-32) Anion Gap (6-14) Blood Urea Nitrogen 19 mg/dL (7-20) Creatinine 1.6 mg/dL (0.6-1.0) Estimated GFR (Cockcroft-Gault) 32.8 Glucose Level 113 mg/dL (70-99) Calcium Level 8.8 mg/dL (8.5-10.1) Thyroid Stimulating Hormone (TSH) 10.361 uIU/mL (0.358-3.74) Free Thyroxine 1.06 ng/dL (0.76-1.46) Laboratory Tests Test 11/27/18 16:10 11/27/18 21:08 11/28/18 07:34 11/28/18 11:10 Glucose (Fingerstick) 103 mg/dL (70-99) 171 mg/dL (70-99) 101 mg/dL (70-99) 117 mg/dL (70-99) Test 11/28/18 11:50 White Blood Count 5.0 x10^3/uL (4.0-11.0) Red Blood Count 2.73 x10^6/uL (3.50-5.40) Hemoglobin 7.2 g/dL (12.0-15.5) Hematocrit 23.4 % (36.0-47.0) Mean Corpuscular Volume 86 fL (79-100) Mean Corpuscular Hemoglobin 26 pg (25-35) Mean Corpuscular Hemoglobin Concent 31 g/dL (31-37) Red Cell Distribution Width 17.1 % (11.5-14.5) Platelet Count 208 x10^3/uL (140-400) Neutrophils (%) (Auto) 57 % (31-73) Lymphocytes (%) (Auto) 29 % (24-48) Monocytes (%) (Auto) 11 % (0-9) Eosinophils (%) (Auto) 2 % (0-3) Basophils (%) (Auto) 0 % (0-3) Neutrophils # (Auto) 2.9 x10^3uL (1.8-7.7) Lymphocytes # (Auto) 1.4 x10^3/uL (1.0-4.8) Monocytes # (Auto) 0.6 x10^3/uL (0.0-1.1) Eosinophils # (Auto) 0.1 x10^3/uL (0.0-0.7) Basophils # (Auto) 0.0 x10^3/uL (0.0-0.2) Sodium Level 156 mmol/L (136-145) Potassium Level 3.7 mmol/L (3.5-5.1) Chloride Level 108 mmol/L (98-107) Carbon Dioxide Level > 45 mmol/L (21-32) Anion Gap (6-14) Blood Urea Nitrogen 19 mg/dL (7-20) Creatinine 1.6 mg/dL (0.6-1.0) Estimated GFR (Cockcroft-Gault) 32.8 Glucose Level 113 mg/dL (70-99) Calcium Level 8.8 mg/dL (8.5-10.1) Thyroid Stimulating Hormone (TSH) 10.361 uIU/mL (0.358-3.74) Free Thyroxine 1.06 ng/dL (0.76-1.46) Medications Active Scripts Medications Dose Route/Sig Max Daily Dose Days Date Category Furosemide 40 Mg Tablet 60 Mg PO DAILY 11/26/18 Reported Metoprolol Succinate ( Xl ) (Metoprolol Succinate) 25 Mg Tab.er.24h 25 Mg PO DAILY 30 08/13/18 Rx Duoneb 0.5-3(2.5) Mg/3 Ml (Albuterol/Ipratropium) 3 Ml Ampul.neb 3 Ml NEB RTQID 08/04/18 Rx Eliquis (Apixaban) 5 Mg Tablet 5 Mg PO BID 30 08/04/18 Rx Amiodarone Hcl 200 Mg Tablet 200 Mg PO BID 30 08/04/18 Rx Aspirin 81 Mg Tab.chew 81 Mg PO DAILYWBKFT 08/04/18 Rx Glipizide 10 Mg Tablet 1 Tab PO BID 09/24/17 Reported Seroquel (Quetiapine Fumarate) 200 Mg Tablet 0.5 Tab PO QHS 09/20/17 Reported Lovastatin 40 Mg Tablet 1 Tab PO HS 11/04/14 Reported Actos (Pioglitazone Hcl) 15 Mg Tablet 45 Mg PO DAILY 11/03/14 Reported Celexa (Citalopram Hydrobromide) 40 Mg Tablet 40 Mg PO DAILY 11/03/14 Reported Impression . FULL NOTE DICTATED THANKS THORACENTESIS PNEUMONIA CHF ANSELMO LIANG MD Nov 28, 2018 15:45
--- NOTE | 2018-11-28 16:40 | PDOC ---
PROGRESS NOTES Subjective Subjective Patient seen and examined Objective Objective Vital Signs Date Time Temp Pulse Resp B/P (MAP) Pulse Ox O2 Delivery O2 Flow Rate FiO2 11/28/18 15:30 94 BiPAP/CPAP 11/28/18 15:00 97.6 71 24 124/56 (78) 4.0 97.6 Intake and Output 11/28/18 07:00 Intake Total 840 ml Balance 840 ml Intake Oral 840 ml # Voids 7 Physical Exam Abdomen: Normal bowel sounds General: No acute distress Lungs: Other (mildly decreased breath sounds) Assessment Assessment Problems Medical Problems: (1) Anasarca Status: Acute (2) CAP (community acquired pneumonia) Status: Acute (3) CHF (congestive heart failure) Status: Acute (4) COPD exacerbation Status: Acute (5) Pleural effusion Status: Acute Acute on chronic diastolic heart failure. Continues to improve on present medications. Echocardiogram from 4 months ago shows an ejection fraction of 55- 60%. Paroxysmal atrial flutter with flutter. Now sinus rhythm. Continue present treatments including anticoagulation. Has apparently failed amnio and will obtain an EP referral as an outpatient Chronic kidney disease. Monitoring lab. Obstructive sleep apnea with morbid obesity. CPAP. COPD with pulmonary hypertension and continued tobacco use. Statins for hyperlipidemia. Diabetes mellitus as per the primary service. Comment Review of Relevant I have reviewed the following items ritesh (where applicable) has been applied. Labs Laboratory Tests Test 11/26/18 17:45 11/26/18 20:56 11/27/18 09:24 11/27/18 11:52 Urine Color Yellow Urine Clarity Clear Urine pH 6.0 Urine Specific [place] 1.015 Urine Protein Negative mg/dL (NEG-TRACE) Urine Glucose (UA) Negative mg/dL (NEG) Urine Ketones (Stick) Negative mg/dL (NEG) Urine Blood Negative (NEG) Urine Nitrite Negative (NEG) Urine Bilirubin Negative (NEG) Urine Urobilinogen Dipstick 1.0 mg/dL (0.2 mg/dL) Urine Leukocyte Esterase Negative (NEG) Urine RBC 0 /HPF (0-2) Urine WBC Occ /HPF (0-4) Urine Squamous Epithelial Cells Occ /LPF Urine Bacteria 0 /HPF (0-FEW) Urine Mucus Slight /LPF Glucose (Fingerstick) 119 mg/dL (70-99) 109 mg/dL (70-99) 95 mg/dL (70-99) Test 3/7/19 16:10 11/27/18 21:08 11/28/18 07:34 11/28/18 11:10 Glucose (Fingerstick) 103 mg/dL (70-99) 171 mg/dL (70-99) 101 mg/dL (70-99) 117 mg/dL (70-99) Test 11/28/18 11:50 11/28/18 16:13 White Blood Count 5.0 x10^3/uL (4.0-11.0) Red Blood Count 2.73 x10^6/uL (3.50-5.40) Hemoglobin 7.2 g/dL (12.0-15.5) Hematocrit 23.4 % (36.0-47.0) Mean Corpuscular Volume 86 fL (79-100) Mean Corpuscular Hemoglobin 26 pg (25-35) Mean Corpuscular Hemoglobin Concent 31 g/dL (31-37) Red Cell Distribution Width 17.1 % (11.5-14.5) Platelet Count 208 x10^3/uL (140-400) Neutrophils (%) (Auto) 57 % (31-73) Lymphocytes (%) (Auto) 29 % (24-48) Monocytes (%) (Auto) 11 % (0-9) Eosinophils (%) (Auto) 2 % (0-3) Basophils (%) (Auto) 0 % (0-3) Neutrophils # (Auto) 2.9 x10^3uL (1.8-7.7) Lymphocytes # (Auto) 1.4 x10^3/uL (1.0-4.8) Monocytes # (Auto) 0.6 x10^3/uL (0.0-1.1) Eosinophils # (Auto) 0.1 x10^3/uL (0.0-0.7) Basophils # (Auto) 0.0 x10^3/uL (0.0-0.2) Sodium Level 156 mmol/L (136-145) Potassium Level 3.7 mmol/L (3.5-5.1) Chloride Level 108 mmol/L (98-107) Carbon Dioxide Level > 45 mmol/L (21-32) Anion Gap (6-14) Blood Urea Nitrogen 19 mg/dL (7-20) Creatinine 1.6 mg/dL (0.6-1.0) Estimated GFR (Cockcroft-Gault) 32.8 Glucose Level 113 mg/dL (70-99) Calcium Level 8.8 mg/dL (8.5-10.1) Thyroid Stimulating Hormone (TSH) 10.361 uIU/mL (0.358-3.74) Free Thyroxine 1.06 ng/dL (0.76-1.46) Glucose (Fingerstick) 156 mg/dL (70-99) Laboratory Tests Test 11/27/18 21:08 11/28/18 07:34 11/28/18 11:10 11/28/18 11:50 Glucose (Fingerstick) 171 mg/dL (70-99) 101 mg/dL (70-99) 117 mg/dL (70-99) White Blood Count 5.0 x10^3/uL (4.0-11.0) Red Blood Count 2.73 x10^6/uL (3.50-5.40) Hemoglobin 7.2 g/dL (12.0-15.5) Hematocrit 23.4 % (36.0-47.0) Mean Corpuscular Volume 86 fL (79-100) Mean Corpuscular Hemoglobin 26 pg (25-35) Mean Corpuscular Hemoglobin Concent 31 g/dL (31-37) Red Cell Distribution Width 17.1 % (11.5-14.5) Platelet Count 208 x10^3/uL (140-400) Neutrophils (%) (Auto) 57 % (31-73) Lymphocytes (%) (Auto) 29 % (24-48) Monocytes (%) (Auto) 11 % (0-9) Eosinophils (%) (Auto) 2 % (0-3) Basophils (%) (Auto) 0 % (0-3) Neutrophils # (Auto) 2.9 x10^3uL (1.8-7.7) Lymphocytes # (Auto) 1.4 x10^3/uL (1.0-4.8) Monocytes # (Auto) 0.6 x10^3/uL (0.0-1.1) Eosinophils # (Auto) 0.1 x10^3/uL (0.0-0.7) Basophils # (Auto) 0.0 x10^3/uL (0.0-0.2) Sodium Level 156 mmol/L (136-145) Potassium Level 3.7 mmol/L (3.5-5.1) Chloride Level 108 mmol/L (98-107) Carbon Dioxide Level > 45 mmol/L (21-32) Anion Gap (6-14) Blood Urea Nitrogen 19 mg/dL (7-20) Creatinine 1.6 mg/dL (0.6-1.0) Estimated GFR (Cockcroft-Gault) 32.8 Glucose Level 113 mg/dL (70-99) Calcium Level 8.8 mg/dL (8.5-10.1) Thyroid Stimulating Hormone (TSH) 10.361 uIU/mL (0.358-3.74) Free Thyroxine 1.06 ng/dL (0.76-1.46) Test 11/28/18 16:13 Glucose (Fingerstick) 156 mg/dL (70-99) Microbiology 11/26/18 Blood Culture - Preliminary, Resulted NO GROWTH AFTER 1 DAY Medications Current Medications Albuterol/ Ipratropium (Duoneb) 3 ml 1X ONCE NEB Last administered on 16:29; Start 11/26/18 at 16:15; Stop 11/26/18 at 16:16; Status DC Furosemide (Lasix) 60 mg 1X ONCE IVP Last administered on 11/26/18 18:52; Start 11/26/18 at 18:00; Stop 11/26/18 at 18:01; Status DC Ceftriaxone Sodium (Rocephin) 1 gm 1X ONCE IVP Last administered on 11/26/18 18:47; Start 11/26/18 at 18:00; Stop 11/26/18 at 18:02; Status DC Azithromycin 250 ml @ 250 mls/hr 1X ONCE IV Last administered on 11/26/18 19: 00; Start 11/26/18 at 18:00; Stop 11/26/18 at 18:59; Status DC Ondansetron HCl (Zofran) 4 mg PRN Q8HRS PRN IV NAUSEA/VOMITING; Start 11/26/18 at 18:15; Stop 11/27/18 at 18:14; Status DC Albuterol/ Ipratropium (Duoneb) 3 ml RTQID NEB Last administered on 11/27/18at 19 :33; Start 11/26/18 at 20:00; Stop 11/27/18 at 19:59; Status DC Furosemide (Lasix) 40 mg BID92 IVP Last administered on 11/28/18 15:38; Start 11/27/18 at 09:00 Amiodarone HCl (Cordarone) 200 mg BID PO Last administered on 11/28/18 08:48; Start 11/26/18 at 21:00 Apixaban (Eliquis) 5 mg BID PO Last administered on 11/28/18 08:48; Start at 21:00 Aspirin (Children'S Aspirin) 81 mg DAILYWBKFT PO Last administered on 11/28/18 08:42; Start 11/27/18 at 08:00 Albuterol/ Ipratropium (Duoneb) 3 ml RTQID NEB Last administered on 11/28/18 15 :26; Start 11/26/18 at 21:00 Metoprolol Succinate (Toprol Xl) 25 mg DAILY PO Last administered on 11/28/18 08:47; Start 11/27/18 at 09:00 Citalopram Hydrobromide (CeleXA) 40 mg DAILY PO Last administered on 11/28/18 08:48; Start 11/27/18 at 09:00 Glipizide (Glucotrol) 10 mg BIDBFRMEAL PO ; Start 11/27/18 at 07:30; Stop at 07:30; Status DC Atorvastatin Calcium (Lipitor) 10 mg QHS PO Last administered on 11/27/18 21:19 ; Start 11/26/18 at 21:00 Pioglitazone HCl (Actos) 45 mg DAILY PO Last administered on 11/28/18 08:43; Start 11/27/18 at 09:00 Quetiapine Fumarate (SEROquel) 100 mg QHS PO Last administered on 11/27/18 21: 19; Start 11/26/18 at 21:30 Insulin Human Lispro (HumaLOG) 0-5 UNITS TIDWMEALS SQ ; Start 11/27/18 at 08:00 Dextrose (Dextrose 50%-Water Syringe) 12.5 gm PRN Q15MIN PRN IV SEE COMMENTS; Start 11/26/18 at 21:00 Glipizide (Glucotrol) 10 mg DAILYAC PO Last administered on 11/28/18at 08:42; Start 11/27/18 at 07:30 Info (Anti-Coagulation Monitoring By Pharmacy) 1 each PRN DAILY PRN MC SEE COMMENTS Last administered on 11/27/18at 18:09; Start 11/27/18 at 15:00 Levothyroxine Sodium (Synthroid) 100 mcg DAILY06 PO Last administered on at 05:29; Start 11/28/18 at 06:00; Stop 11/28/18 at 13:13; Status DC Levofloxacin/ Dextrose 150 ml @ 100 mls/hr Q24H IV ; Start 11/28/18 at 11:15; Stop 11/28/18 at 11:30; Status DC Doxycycline Hyclate 100 mg/ Dextrose 100 ml @ 50 mls/hr Q12HR IV Last administered on 11/28/18at 12:20; Start 11/28/18 at 12:00 Ceftriaxone Sodium (Rocephin) 1 gm Q24H IVP ; Start 11/28/18 at 17:00 Active Scripts Active Metoprolol Succinate ( Xl ) (Metoprolol Succinate) 25 Mg Tab.er.24h 25 Mg PO DAILY 30 Days Duoneb 0.5-3(2.5) Mg/3 Ml (Albuterol/Ipratropium) 3 Ml Ampul.neb 3 Ml NEB RTQID 30 Days Eliquis (Apixaban) 5 Mg Tablet 5 Mg PO BID 30 Days Amiodarone Hcl 200 Mg Tablet 200 Mg PO BID 30 Days Aspirin 81 Mg Tab.chew 81 Mg PO DAILYWBKFT 30 Days Reported Furosemide 40 Mg Tablet 60 Mg PO DAILY Glipizide 10 Mg Tablet 1 Tab PO BID Seroquel (Quetiapine Fumarate) 200 Mg Tablet 0.5 Tab PO QHS Lovastatin 40 Mg Tablet 1 Tab PO HS Actos (Pioglitazone Hcl) 15 Mg Tablet 45 Mg PO DAILY Celexa (Citalopram Hydrobromide) 40 Mg Tablet 40 Mg PO DAILY Vitals/I & O Vital Sign - Last 24 Hours 11/27/18 11/27/18 11/27/18 11/27/18 19:00 19:35 20:00 21:20 Temp 96.9 96.9 Pulse 106 84 Resp 20 B/P (MAP) 118/58 (78) 126/66 Pulse Ox 96 96 O2 Delivery Nasal Cannula Nasal Cannula Nasal Cannula O2 Flow Rate 4.0 3.0 2.0 11/27/18 11/28/18 11/28/18 11/28/18 23:00 00:08 01:12 03:00 Temp 98.4 98.1 98.4 98.1 Pulse 108 56 Resp 17 17 B/P (MAP) 109/65 (80) 124/43 (70) Pulse Ox 92 96 98 O2 Delivery Nasal Cannula BiPAP/CPAP BiPAP/CPAP Nasal Cannula O2 Flow Rate 4.0 4.0 11/28/18 11/28/18 11/28/18 11/28/18 03:51 05:21 07:00 07:42 Temp 97.8 97.8 Pulse 66 Resp 22 B/P (MAP) 130/40 (70) Pulse Ox 95 O2 Delivery BiPAP/CPAP BiPAP/CPAP Nasal Cannula BiPAP/CPAP O2 Flow Rate 4.0 11/28/18 11/28/18 11/28/18 11/28/18 08:00 08:00 08:47 08:48 Pulse 66 66 B/P (MAP) 130/40 130/40 O2 Delivery BiPAP/CPAP Nasal Cannula O2 Flow Rate 4.0 11/28/18 11/28/18 11/28/18 11/28/18 11:00 11:25 15:00 15:30 Temp 97.7 97.6 97.7 97.6 Pulse 105 71 Resp 22 24 B/P (MAP) 118/47 (70) 124/56 (78) Pulse Ox 92 91 90 94 O2 Delivery Nasal Cannula Nasal Cannula Nasal Cannula BiPAP/CPAP O2 Flow Rate 4.0 3.0 4.0 Intake and Output 11/27/18 11/27/18 11/28/18 15:00 23:00 07:00 Intake Total 300 ml 380 ml 160 ml Balance 300 ml 380 ml 160 ml DURAN FRITZ MD Nov 28, 2018 16:40
[2018-11-28 16:47] LABS: BASE EXCESS ABG 17 mmol/L (-3-3); HCO3 ABG 44 mmol/L (21-28); PO2 ABG 59 mmHg (65-108); SAT O2 ABG 88 % (92-99)
[2018-11-28] MEDS: cefTRIAXone IV Push 1 GM VIAL. IVP SCH (16:50)
[2018-11-28 16:52] LABS: FIO2 ABG 36; PCO2 ABG 64 mmHg (35-46)
--- NOTE | 2018-11-28 17:41 | PDOC ---
PROGRESS NOTES Chief Complaint Chief Complaint Acute hypercapnic-hypoxemic respiratory failure - BIPAP/CPAP overnight Acute diastolic congestive heart failure - with weight gain, edema, pulm infiltrates, BNP up will diurese Acute kidney injury - likely vasomotor vs cardiorenal. Previously she actually improved with diuresis, will treat as such Bilateral pulmonary infiltrates compatible with pulmonary edema, suspect cardiogenic - will diurese CT scan showing significant effusion, will consult pulmonary Elevated troponin - likely 2/2 stress, renal failure Prior atrial fibrillation - cardizem converted to sinus previously Anemia - a bit lower, likely from her chronic disease. Monitor. Transfuse for Hb < 8 with her CHF history Morbid obesity - will diet counselor Tobacco dependence - continue counseling H/o GERD DM - Sliding scale Plan: Cardiac ADA diet, 2L fluid restriction will continue with diuresis consult Dr Robb PPX - heparin FULL CODE History of Present Illness History of Present Illness Seems improved today compared to yesterday Patient with no acute events reported , patient with no fever chills at bedside continues to have peripheral edema reassurance has been provided plan of care explaining detail all concerns address to the best of my abilities Vitals Vitals Vital Signs Date Time Temp Pulse Resp B/P (MAP) Pulse Ox O2 Delivery O2 Flow Rate FiO2 11/28/18 16:30 4.0 11/28/18 15:30 94 BiPAP/CPAP 11/28/18 15:00 97.6 71 24 124/56 (78) 97.6 Physical Exam General: No acute distress Heart: Regular rate (SR), Other (distnat heart sounds) Lungs: Clear, Crackles Abdomen: Normal bowel sounds Extremities: No cyanosis, Other (3+ bilateral LE pitting edema) Skin: No breakdown, No significant lesion Labs LABS Laboratory Tests Test 11/27/18 21:08 11/28/18 07:34 11/28/18 11:10 11/28/18 11:50 Glucose (Fingerstick) 171 mg/dL (70-99) 101 mg/dL (70-99) 117 mg/dL (70-99) White Blood Count 5.0 x10^3/uL (4.0-11.0) Red Blood Count 2.73 x10^6/uL (3.50-5.40) Hemoglobin 7.2 g/dL (12.0-15.5) Hematocrit 23.4 % (36.0-47.0) Mean Corpuscular Volume 86 fL (79-100) Mean Corpuscular Hemoglobin 26 pg (25-35) Mean Corpuscular Hemoglobin Concent 31 g/dL (31-37) Red Cell Distribution Width 17.1 % (11.5-14.5) Platelet Count 208 x10^3/uL (140-400) Neutrophils (%) (Auto) 57 % (31-73) Lymphocytes (%) (Auto) 29 % (24-48) Monocytes (%) (Auto) 11 % (0-9) Eosinophils (%) (Auto) 2 % (0-3) Basophils (%) (Auto) 0 % (0-3) Neutrophils # (Auto) 2.9 x10^3uL (1.8-7.7) Lymphocytes # (Auto) 1.4 x10^3/uL (1.0-4.8) Monocytes # (Auto) 0.6 x10^3/uL (0.0-1.1) Eosinophils # (Auto) 0.1 x10^3/uL (0.0-0.7) Basophils # (Auto) 0.0 x10^3/uL (0.0-0.2) Sodium Level 156 mmol/L (136-145) Potassium Level 3.7 mmol/L (3.5-5.1) Chloride Level 108 mmol/L (98-107) Carbon Dioxide Level > 45 mmol/L (21-32) Anion Gap (6-14) Blood Urea Nitrogen 19 mg/dL (7-20) Creatinine 1.6 mg/dL (0.6-1.0) Estimated GFR (Cockcroft-Gault) 32.8 Glucose Level 113 mg/dL (70-99) Calcium Level 8.8 mg/dL (8.5-10.1) Thyroid Stimulating Hormone (TSH) 10.361 uIU/mL (0.358-3.74) Free Thyroxine 1.06 ng/dL (0.76-1.46) Total Triiodothyronine 62 ng/dL (71-180) Test 11/28/18 16:13 11/28/18 16:30 Glucose (Fingerstick) 156 mg/dL (70-99) O2 Saturation 88 % (92-99) Arterial Blood pH 7.45 (7.35-7.45) Arterial Blood pCO2 at Patient Temp 64 mmHg (35-46) Arterial Blood pO2 at Patient Temp 59 mmHg (65-108) Arterial Blood HCO3 44 mmol/L (21-28) Arterial Blood Base Excess 17 mmol/L (-3-3) FiO2 36 Assessment and Plan Assessmemt and Plan Problems Medical Problems: (1) Anasarca Status: Acute (2) CAP (community acquired pneumonia) Status: Acute (3) CHF (congestive heart failure) Status: Acute (4) COPD exacerbation Status: Acute (5) Pleural effusion Status: Acute Comment Review of Relevant I have reviewed the following items ritesh (where applicable) has been applied. Labs Laboratory Tests Test 11/26/18 17:45 11/26/18 20:56 11/27/18 09:24 11/27/18 11:52 Urine Color Yellow Urine Clarity Clear Urine pH 6.0 Urine Specific [place] 1.015 Urine Protein Negative mg/dL (NEG-TRACE) Urine Glucose (UA) Negative mg/dL (NEG) Urine Ketones (Stick) Negative mg/dL (NEG) Urine Blood Negative (NEG) Urine Nitrite Negative (NEG) Urine Bilirubin Negative (NEG) Urine Urobilinogen Dipstick 1.0 mg/dL (0.2 mg/dL) Urine Leukocyte Esterase Negative (NEG) Urine RBC 0 /HPF (0-2) Urine WBC Occ /HPF (0-4) Urine Squamous Epithelial Cells Occ /LPF Urine Bacteria 0 /HPF (0-FEW) Urine Mucus Slight /LPF Glucose (Fingerstick) 119 mg/dL (70-99) 109 mg/dL (70-99) 95 mg/dL (70-99) Test 11/27/18 16:10 11/27/18 21:08 11/28/18 07:34 11/28/18 11:10 Glucose (Fingerstick) 103 mg/dL (70-99) 171 mg/dL (70-99) 101 mg/dL (70-99) 117 mg/dL (70-99) Test 11/28/18 11:50 11/28/18 16:13 11/28/18 16:30 White Blood Count 5.0 x10^3/uL (4.0-11.0) Red Blood Count 2.73 x10^6/uL (3.50-5.40) Hemoglobin 7.2 g/dL (12.0-15.5) Hematocrit 23.4 % (36.0-47.0) Mean Corpuscular Volume 86 fL (79-100) Mean Corpuscular Hemoglobin 26 pg (25-35) Mean Corpuscular Hemoglobin Concent 31 g/dL (31-37) Red Cell Distribution Width 17.1 % (11.5-14.5) Platelet Count 208 x10^3/uL (140-400) Neutrophils (%) (Auto) 57 % (31-73) Lymphocytes (%) (Auto) 29 % (24-48) Monocytes (%) (Auto) 11 % (0-9) Eosinophils (%) (Auto) 2 % (0-3) Basophils (%) (Auto) 0 % (0-3) Neutrophils # (Auto) 2.9 x10^3uL (1.8-7.7) Lymphocytes # (Auto) 1.4 x10^3/uL (1.0-4.8) Monocytes # (Auto) 0.6 x10^3/uL (0.0-1.1) Eosinophils # (Auto) 0.1 x10^3/uL (0.0-0.7) Basophils # (Auto) 0.0 x10^3/uL (0.0-0.2) Sodium Level 156 mmol/L (136-145) Potassium Level 3.7 mmol/L (3.5-5.1) Chloride Level 108 mmol/L (98-107) Carbon Dioxide Level > 45 mmol/L (21-32) Anion Gap (6-14) Blood Urea Nitrogen 19 mg/dL (7-20) Creatinine 1.6 mg/dL (0.6-1.0) Estimated GFR (Cockcroft-Gault) 32.8 Glucose Level 113 mg/dL (70-99) Calcium Level 8.8 mg/dL (8.5-10.1) Thyroid Stimulating Hormone (TSH) 10.361 uIU/mL (0.358-3.74) Free Thyroxine 1.06 ng/dL (0.76-1.46) Total Triiodothyronine 62 ng/dL (71-180) Glucose (Fingerstick) 156 mg/dL (70-99) O2 Saturation 88 % (92-99) Arterial Blood pH 7.45 (7.35-7.45) Arterial Blood pCO2 at Patient Temp 64 mmHg (35-46) Arterial Blood pO2 at Patient Temp 59 mmHg (65-108) Arterial Blood HCO3 44 mmol/L (21-28) Arterial Blood Base Excess 17 mmol/L (-3-3) FiO2 36 Laboratory Tests Test 11/27/18 21:08 11/28/18 07:34 11/28/18 11:10 11/28/18 11:50 Glucose (Fingerstick) 171 mg/dL (70-99) 101 mg/dL (70-99) 117 mg/dL (70-99) White Blood Count 5.0 x10^3/uL (4.0-11.0) Red Blood Count 2.73 x10^6/uL (3.50-5.40) Hemoglobin 7.2 g/dL (12.0-15.5) Hematocrit 23.4 % (36.0-47.0) Mean Corpuscular Volume 86 fL (79-100) Mean Corpuscular Hemoglobin 26 pg (25-35) Mean Corpuscular Hemoglobin Concent 31 g/dL (31-37) Red Cell Distribution Width 17.1 % (11.5-14.5) Platelet Count 208 x10^3/uL (140-400) Neutrophils (%) (Auto) 57 % (31-73) Lymphocytes (%) (Auto) 29 % (24-48) Monocytes (%) (Auto) 11 % (0-9) Eosinophils (%) (Auto) 2 % (0-3) Basophils (%) (Auto) 0 % (0-3) Neutrophils # (Auto) 2.9 x10^3uL (1.8-7.7) Lymphocytes # (Auto) 1.4 x10^3/uL (1.0-4.8) Monocytes # (Auto) 0.6 x10^3/uL (0.0-1.1) Eosinophils # (Auto) 0.1 x10^3/uL (0.0-0.7) Basophils # (Auto) 0.0 x10^3/uL (0.0-0.2) Sodium Level 156 mmol/L (136-145) Potassium Level 3.7 mmol/L (3.5-5.1) Chloride Level 108 mmol/L (98-107) Carbon Dioxide Level > 45 mmol/L (21-32) Anion Gap (6-14) Blood Urea Nitrogen 19 mg/dL (7-20) Creatinine 1.6 mg/dL (0.6-1.0) Estimated GFR (Cockcroft-Gault) 32.8 Glucose Level 113 mg/dL (70-99) Calcium Level 8.8 mg/dL (8.5-10.1) Thyroid Stimulating Hormone (TSH) 10.361 uIU/mL (0.358-3.74) Free Thyroxine 1.06 ng/dL (0.76-1.46) Total Triiodothyronine 62 ng/dL (71-180) Test 11/28/18 16:13 11/28/18 16:30 Glucose (Fingerstick) 156 mg/dL (70-99) O2 Saturation 88 % (92-99) Arterial Blood pH 7.45 (7.35-7.45) Arterial Blood pCO2 at Patient Temp 64 mmHg (35-46) Arterial Blood pO2 at Patient Temp 59 mmHg (65-108) Arterial Blood HCO3 44 mmol/L (21-28) Arterial Blood Base Excess 17 mmol/L (-3-3) FiO2 36 Microbiology 11/26/18 Blood Culture - Preliminary, Resulted NO GROWTH AFTER 1 DAY Medications Current Medications Albuterol/ Ipratropium (Duoneb) 3 ml 1X ONCE NEB Last administered on 16:29; Start 11/26/18 at 16:15; Stop 11/26/18 at 16:16; Status DC Furosemide (Lasix) 60 mg 1X ONCE IVP Last administered on 11/26/18 18:52; Start 11/26/18 at 18:00; Stop 11/26/18 at 18:01; Status DC Ceftriaxone Sodium (Rocephin) 1 gm 1X ONCE IVP Last administered on 11/26/18 18:47; Start 11/26/18 at 18:00; Stop 11/26/18 at 18:02; Status DC Azithromycin 250 ml @ 250 mls/hr 1X ONCE IV Last administered on 11/26/18at 19: 00; Start 11/26/18 at 18:00; Stop 11/26/18 at 18:59; Status DC Ondansetron HCl (Zofran) 4 mg PRN Q8HRS PRN IV NAUSEA/VOMITING; Start 11/26/18 at 18:15; Stop 11/27/18 at 18:14; Status DC Albuterol/ Ipratropium (Duoneb) 3 ml RTQID NEB Last administered on 11/27/18 19 :33; Start 11/26/18 at 20:00; Stop 11/27/18 at 19:59; Status DC Furosemide (Lasix) 40 mg BID92 IVP Last administered on 11/28/18 15:38; Start 11/27/18 at 09:00 Amiodarone HCl (Cordarone) 200 mg BID PO Last administered on 11/28/18 08:48; Start 11/26/18 at 21:00 Apixaban (Eliquis) 5 mg BID PO Last administered on 11/28/18 08:48; Start at 21:00 Aspirin (Children'S Aspirin) 81 mg DAILYWBKFT PO Last administered on 11/28/18 08:42; Start 11/27/18 at 08:00 Albuterol/ Ipratropium (Duoneb) 3 ml RTQID NEB Last administered on 11/28/18 15 :26; Start 11/26/18 at 21:00 Metoprolol Succinate (Toprol Xl) 25 mg DAILY PO Last administered on 11/28/18 08:47; Start 11/27/18 at 09:00 Citalopram Hydrobromide (CeleXA) 40 mg DAILY PO Last administered on 11/28/18 08:48; Start 11/27/18 at 09:00 Glipizide (Glucotrol) 10 mg BIDBFRMEAL PO ; Start 11/27/18 at 07:30; Stop at 07:30; Status DC Atorvastatin Calcium (Lipitor) 10 mg QHS PO Last administered on 11/27/18 21:19 ; Start 11/26/18 at 21:00 Pioglitazone HCl (Actos) 45 mg DAILY PO Last administered on 11/28/18 08:43; Start 11/27/18 at 09:00 Quetiapine Fumarate (SEROquel) 100 mg QHS PO Last administered on 11/27/18 21: 19; Start 11/26/18 at 21:30 Insulin Human Lispro (HumaLOG) 0-5 UNITS TIDWMEALS SQ ; Start 11/27/18 at 08:00 Dextrose (Dextrose 50%-Water Syringe) 12.5 gm PRN Q15MIN PRN IV SEE COMMENTS; Start 11/26/18 at 21:00 Glipizide (Glucotrol) 10 mg DAILYAC PO Last administered on 11/28/18at 08:42; Start 11/27/18 at 07:30 Info (Anti-Coagulation Monitoring By Pharmacy) 1 each PRN DAILY PRN [facility] SEE COMMENTS Last administered on 11/27/18at 18:09; Start 11/27/18 at 15:00 Levothyroxine Sodium (Synthroid) 100 mcg DAILY06 PO Last administered on at 05:29; Start 11/28/18 at 06:00; Stop 11/28/18 at 13:13; Status DC Levofloxacin/ Dextrose 150 ml @ 100 mls/hr Q24H IV ; Start 11/28/18 at 11:15; Stop 11/28/18 at 11:30; Status DC Doxycycline Hyclate 100 mg/ Dextrose 100 ml @ 50 mls/hr Q12HR IV Last administered on 11/28/18at 12:20; Start 11/28/18 at 12:00 Ceftriaxone Sodium (Rocephin) 1 gm Q24H IVP Last administered on 11/28/18at 16:50 ; Start 11/28/18 at 17:00 Lactobacillus Rhamnosus (Culturelle) 1 cap BID PO ; Start 11/28/18 at 21:00 Active Scripts Active Metoprolol Succinate ( Xl ) (Metoprolol Succinate) 25 Mg Tab.er.24h 25 Mg PO DAILY 30 Days Duoneb 0.5-3(2.5) Mg/3 Ml (Albuterol/Ipratropium) 3 Ml Ampul.neb 3 Ml NEB RTQID 30 Days Eliquis (Apixaban) 5 Mg Tablet 5 Mg PO BID 30 Days Amiodarone Hcl 200 Mg Tablet 200 Mg PO BID 30 Days Aspirin 81 Mg Tab.chew 81 Mg PO DAILYWBKFT 30 Days Reported Furosemide 40 Mg Tablet 60 Mg PO DAILY Glipizide 10 Mg Tablet 1 Tab PO BID Seroquel (Quetiapine Fumarate) 200 Mg Tablet 0.5 Tab PO QHS Lovastatin 40 Mg Tablet 1 Tab PO HS Actos (Pioglitazone Hcl) 15 Mg Tablet 45 Mg PO DAILY Celexa (Citalopram Hydrobromide) 40 Mg Tablet 40 Mg PO DAILY Vitals/I & O Vital Sign - Last 24 Hours 11/27/18 11/27/18 11/27/18 11/27/18 19:00 19:35 20:00 21:20 Temp 96.9 96.9 Pulse 106 84 Resp 20 B/P (MAP) 118/58 (78) 126/66 Pulse Ox 96 96 O2 Delivery Nasal Cannula Nasal Cannula Nasal Cannula O2 Flow Rate 4.0 3.0 2.0 11/27/18 11/28/18 11/28/18 11/28/18 23:00 00:08 01:12 03:00 Temp 98.4 98.1 98.4 98.1 Pulse 108 56 Resp 17 17 B/P (MAP) 109/65 (80) 124/43 (70) Pulse Ox 92 96 98 O2 Delivery Nasal Cannula BiPAP/CPAP BiPAP/CPAP Nasal Cannula O2 Flow Rate 4.0 4.0 11/28/18 11/28/18 11/28/18 11/28/18 03:51 05:21 07:00 07:42 Temp 97.8 97.8 Pulse 66 Resp 22 B/P (MAP) 130/40 (70) Pulse Ox 95 O2 Delivery BiPAP/CPAP BiPAP/CPAP Nasal Cannula BiPAP/CPAP O2 Flow Rate 4.0 11/28/18 11/28/18 11/28/18 11/28/18 08:00 08:00 08:47 08:48 Pulse 66 66 B/P (MAP) 130/40 130/40 O2 Delivery BiPAP/CPAP Nasal Cannula O2 Flow Rate 4.0 11/28/18 11/28/18 11/28/18 11/28/18 11:00 11:25 15:00 15:30 Temp 97.7 97.6 97.7 97.6 Pulse 105 71 Resp 22 24 B/P (MAP) 118/47 (70) 124/56 (78) Pulse Ox 92 91 90 94 O2 Delivery Nasal Cannula Nasal Cannula Nasal Cannula BiPAP/CPAP O2 Flow Rate 4.0 3.0 4.0 11/28/18 16:30 O2 Flow Rate 4.0 Intake and Output 11/27/18 11/27/18 11/28/18 15:00 23:00 07:00 Intake Total 300 ml 380 ml 160 ml Balance 300 ml 380 ml 160 ml YANNI TELLEZ MD Nov 28, 2018 17:41
[2018-11-28 19:00] VITALS: BP 144/60
[2018-11-28] MEDS: ATORVASTATIN CALCIUM 10 MG TABLET. PO SCH (20:32)
[2018-11-28] MEDS: QUEtiapine 100 MG TABLET. PO SCH (20:33)
[2018-11-28] MEDS: LACTOBACILLUS RHAMNOSUS GG 1 CAPSULE. PO SCH (20:33)
[2018-11-28 23:00] VITALS: BP 123/70
[2018-11-29 03:00] VITALS: BP 117/78
[2018-11-29 07:00] VITALS: BP 126/49
[2018-11-29] MEDS: glipiZIDE 5 MG TABLET PO SCH (07:30)
[2018-11-29] MEDS: IPRATRPIUM/ALBUTEROL 0.5/2.5MG 3 ML NEBU. NEB SCH ×4 (07:51→19:35)
[2018-11-29] MEDS: INSULIN LISPRO 300 UNITS/3 ML INSULN.PEN. SQ SCH ×3 (08:00→17:00)
--- NOTE | 2018-11-29 08:02 | NUR ---
Patient with Bipap on and not wanting to eat breakfast, blood sugar 78, glucotrol held per protocol. Patient verb. understanding.
[2018-11-29] MEDS: FUROSEMIDE 40 MG/4 ML VIAL. IVP SCH (08:29)
[2018-11-29] MEDS: CITALOPRAM 20 MG TABLET. PO SCH (08:35)
[2018-11-29] MEDS: LACTOBACILLUS RHAMNOSUS GG 1 CAPSULE. PO SCH ×2 (08:35→21:06)
[2018-11-29] MEDS: AMIODARONE HCL 200 MG TABLET. PO SCH ×2 (08:36→21:06)
[2018-11-29] MEDS: APIXABAN 5 MG TABLET. PO SCH ×2 (08:36→21:07)
[2018-11-29] MEDS: ASPIRIN CHEWABLE 81 MG TABLET. PO SCH (08:36)
[2018-11-29] MEDS: METOPROLOL SUCC 24HR ER 25 MG TAB.ER.24H. PO SCH (08:37)
[2018-11-29] MEDS: DOXYCYCLINE HYCLATE 100 MG in IV DEXTROSE 5% 100ML 100 ML IV SCH ×2 (08:37→21:07)
--- NOTE | 2018-11-29 08:42 | PDOC ---
PULMONARY PROGRESS NOTES Subjective has sob, on bipap, has lauren, is on home cpap, has occ cough, Vitals Vital Signs Date Time Temp Pulse Resp B/P (MAP) Pulse Ox O2 Delivery O2 Flow Rate FiO2 11/29/18 07:53 BiPAP/CPAP 11/29/18 07:51 99 3.0 11/29/18 03:00 97.9 84 22 117/78 (91) 97.9 ROS: No Nausea, No Chest Pain, No Abdominal Pain General: Alert, No acute distress HEENT: Other (bipap mask on) Lungs: Crackles Cardiovascular: S1, S2 Abdomen: Soft, Non-tender, Other Neuro Exam: Alert Extremities: Other (edema) Skin: Warm Labs Laboratory Tests Test 11/27/18 09:24 11/27/18 11:52 11/27/18 16:10 11/27/18 21:08 Glucose (Fingerstick) 109 mg/dL (70-99) 95 mg/dL (70-99) 103 mg/dL (70-99) 171 mg/dL (70-99) Test 11/28/18 07:34 11/28/18 11:10 11/28/18 11:50 11/28/18 16:13 Glucose (Fingerstick) 101 mg/dL (70-99) 117 mg/dL (70-99) 156 mg/dL (70-99) White Blood Count 5.0 x10^3/uL (4.0-11.0) Red Blood Count 2.73 x10^6/uL (3.50-5.40) Hemoglobin 7.2 g/dL (12.0-15.5) Hematocrit 23.4 % (36.0-47.0) Mean Corpuscular Volume 86 fL (79-100) Mean Corpuscular Hemoglobin 26 pg (25-35) Mean Corpuscular Hemoglobin Concent 31 g/dL (31-37) Red Cell Distribution Width 17.1 % (11.5-14.5) Platelet Count 208 x10^3/uL (140-400) Neutrophils (%) (Auto) 57 % (31-73) Lymphocytes (%) (Auto) 29 % (24-48) Monocytes (%) (Auto) 11 % (0-9) Eosinophils (%) (Auto) 2 % (0-3) Basophils (%) (Auto) 0 % (0-3) Neutrophils # (Auto) 2.9 x10^3uL (1.8-7.7) Lymphocytes # (Auto) 1.4 x10^3/uL (1.0-4.8) Monocytes # (Auto) 0.6 x10^3/uL (0.0-1.1) Eosinophils # (Auto) 0.1 x10^3/uL (0.0-0.7) Basophils # (Auto) 0.0 x10^3/uL (0.0-0.2) Sodium Level 156 mmol/L (136-145) Potassium Level 3.7 mmol/L (3.5-5.1) Chloride Level 108 mmol/L (98-107) Carbon Dioxide Level > 45 mmol/L (21-32) Anion Gap (6-14) Blood Urea Nitrogen 19 mg/dL (7-20) Creatinine 1.6 mg/dL (0.6-1.0) Estimated GFR (Cockcroft-Gault) 32.8 Glucose Level 113 mg/dL (70-99) Calcium Level 8.8 mg/dL (8.5-10.1) Thyroid Stimulating Hormone (TSH) 10.361 uIU/mL (0.358-3.74) Free Thyroxine 1.06 ng/dL (0.76-1.46) Total Triiodothyronine 62 ng/dL (71-180) Test 11/28/18 16:30 11/28/18 20:49 11/29/18 04:06 11/29/18 07:44 O2 Saturation 88 % (92-99) Arterial Blood pH 7.45 (7.35-7.45) Arterial Blood pCO2 at Patient Temp 64 mmHg (35-46) Arterial Blood pO2 at Patient Temp 59 mmHg (65-108) Arterial Blood HCO3 44 mmol/L (21-28) Arterial Blood Base Excess 17 mmol/L (-3-3) FiO2 36 Glucose (Fingerstick) 119 mg/dL (70-99) 91 mg/dL (70-99) 78 mg/dL (70-99) Laboratory Tests Test 11/28/18 11:10 11/28/18 11:50 11/28/18 16:13 11/28/18 16:30 Glucose (Fingerstick) 117 mg/dL (70-99) 156 mg/dL (70-99) White Blood Count 5.0 x10^3/uL (4.0-11.0) Red Blood Count 2.73 x10^6/uL (3.50-5.40) Hemoglobin 7.2 g/dL (12.0-15.5) Hematocrit 23.4 % (36.0-47.0) Mean Corpuscular Volume 86 fL (79-100) Mean Corpuscular Hemoglobin 26 pg (25-35) Mean Corpuscular Hemoglobin Concent 31 g/dL (31-37) Red Cell Distribution Width 17.1 % (11.5-14.5) Platelet Count 208 x10^3/uL (140-400) Neutrophils (%) (Auto) 57 % (31-73) Lymphocytes (%) (Auto) 29 % (24-48) Monocytes (%) (Auto) 11 % (0-9) Eosinophils (%) (Auto) 2 % (0-3) Basophils (%) (Auto) 0 % (0-3) Neutrophils # (Auto) 2.9 x10^3uL (1.8-7.7) Lymphocytes # (Auto) 1.4 x10^3/uL (1.0-4.8) Monocytes # (Auto) 0.6 x10^3/uL (0.0-1.1) Eosinophils # (Auto) 0.1 x10^3/uL (0.0-0.7) Basophils # (Auto) 0.0 x10^3/uL (0.0-0.2) Sodium Level 156 mmol/L (136-145) Potassium Level 3.7 mmol/L (3.5-5.1) Chloride Level 108 mmol/L (98-107) Carbon Dioxide Level > 45 mmol/L (21-32) Anion Gap (6-14) Blood Urea Nitrogen 19 mg/dL (7-20) Creatinine 1.6 mg/dL (0.6-1.0) Estimated GFR (Cockcroft-Gault) 32.8 Glucose Level 113 mg/dL (70-99) Calcium Level 8.8 mg/dL (8.5-10.1) Thyroid Stimulating Hormone (TSH) 10.361 uIU/mL (0.358-3.74) Free Thyroxine 1.06 ng/dL (0.76-1.46) Total Triiodothyronine 62 ng/dL (71-180) O2 Saturation 88 % (92-99) Arterial Blood pH 7.45 (7.35-7.45) Arterial Blood pCO2 at Patient Temp 64 mmHg (35-46) Arterial Blood pO2 at Patient Temp 59 mmHg (65-108) Arterial Blood HCO3 44 mmol/L (21-28) Arterial Blood Base Excess 17 mmol/L (-3-3) FiO2 36 Test 11/28/18 20:49 11/29/18 04:06 11/29/18 07:44 Glucose (Fingerstick) 119 mg/dL (70-99) 91 mg/dL (70-99) 78 mg/dL (70-99) Medications Active Scripts Medications Dose Route/Sig Max Daily Dose Days Date Category Furosemide 40 Mg Tablet 60 Mg PO DAILY 11/26/18 Reported Metoprolol Succinate ( Xl ) (Metoprolol Succinate) 25 Mg Tab.er.24h 25 Mg PO DAILY 30 08/13/18 Rx Duoneb 0.5-3(2.5) Mg/3 Ml (Albuterol/Ipratropium) 3 Ml Ampul.neb 3 Ml NEB RTQID 30 08/04/18 Rx Eliquis (Apixaban) 5 Mg Tablet 5 Mg PO BID 30 08/04/18 Rx Amiodarone Hcl 200 Mg Tablet 200 Mg PO BID 30 08/04/18 Rx Aspirin 81 Mg Tab.chew 81 Mg PO DAILYWBKFT 30 08/04/18 Rx Glipizide 10 Mg Tablet 1 Tab PO BID 09/24/17 Reported Seroquel (Quetiapine Fumarate) 200 Mg Tablet 0.5 Tab PO QHS 09/20/17 Reported Lovastatin 40 Mg Tablet 1 Tab PO HS 11/04/14 Reported Actos (Pioglitazone Hcl) 15 Mg Tablet 45 Mg PO DAILY 11/03/14 Reported Celexa (Citalopram Hydrobromide) 40 Mg Tablet 40 Mg PO DAILY 11/03/14 Reported Impression . IMPRESSION: 1. Wopnc-ms-gxlxkkq hypercapnic hypoxemic respiratory failure. 2. Psque-sc-vwuzapp congestive heart failure. 3. Right-sided pleural effusion. 4. Possible pneumonia. 5. Paroxysmal atrial fibrillation, atrial flutter with rapid ventricular response at times. 6. Chronic kidney disease. 7. Morbid obesity. LAUREN on home cpap 8. Secondary pulmonary hypertension. 9. Chronic obstructive pulmonary disease. Plan . PLAN: thoracentesis not done, not enough pf cont abx BD keep I<O, lasix, monitor cr, k cont bipap prn during day and cont at night on eliquis discussed w pt, her , WILLIE Casanova MD Nov 29, 2018 08:42
[2018-11-29] MEDS: PIOGLITAZONE 15 MG TABLET. PO SCH (09:00)
--- NOTE | 2018-11-29 09:12 | CONS ---
DATE OF CONSULTATION: 11/28/2018 ATTENDING PHYSICIAN: Dr. Foley. REASON FOR CONSULTATION: The patient seen in pulmonary consultation at the request of Dr. Valerio for increasing shortness of air. HISTORY OF PRESENT ILLNESS: The patient is a 63-year-old, well known to us from previous hospitalization. She was on mechanical ventilation back in 06/2018. At that time, she presented with acute hypercapnic hypoxemic respiratory failure; acute kidney injury, requiring hemodialysis. She had bilateral pulmonary infiltrates, compatible with edema. The patient was eventually extubated and discharged home. She now presented to the Emergency Department on the with increasing shortness of air, trouble breathing 45 minutes prior to admission. She apparently was walking to the bathroom, when she came back to the room, she started having difficulty breathing. She denied any chest pain or pressure. No fever. She was evaluated and found to have a chest x-ray compatible with CHF. She was treated. She did not improve. As a consequence, I was asked to see her in consultation. She had a CT chest, which I reviewed. There was moderate right-sided effusion associated with compressive atelectasis. There was also questionable pneumonia. The patient is currently on BiPAP. She is feeling better. She denies fever, chills or night sweats. PAST MEDICAL HISTORY: 1. Previous history of respiratory failure as documented above. 2. Tobacco-dependent COPD. 3. Gastroesophageal reflux. 4. Depression. 5. Schizophrenia. 6. Osteoporosis. 7. Sleep apnea. 8. Previous coronary artery disease with previous myocardial infarction. 9. Chronic AFib. PAST SURGICAL HISTORY: Status post dialysis and catheter placement. FAMILY HISTORY: Coronary artery disease. SOCIAL HISTORY: She smokes. REVIEW OF SYSTEMS: As indicated above, otherwise, a 10-point system could not be fully reviewed as the patient is on BiPAP. ALLERGIES: No known drug allergies. PHYSICAL EXAMINATION: VITAL SIGNS: Since admission, she has been afebrile, she is currently on BiPAP. HEENT: Eyes, the sclerae were nonicteric. NECK: Jugular venous distention could not be assessed secondary to body habitus. CHEST: Full expansion. LUNGS: Diminished breath sounds in the bases. CARDIOVASCULAR: Distant heart sounds with S1, S2, no S3. ABDOMEN: Soft, nontender, nondistended, obese. EXTREMITIES: No clubbing, cyanosis or edema. NEUROLOGIC: The patient was awake, alert, following commands. A detailed neuro exam was not performed. LABORATORY DATA: Reviewed. White count was normal. Hemoglobin and hematocrit noted. Electrolytes were deranged. BUN 19, creatinine 1.6. CT and chest x-ray as indicated above. IMPRESSION: 1. Ywgrr-rk-lsemnaa hypercapnic hypoxemic respiratory failure. 2. Ofuok-fo-qeyixno congestive heart failure. 3. Right-sided pleural effusion. 4. Possible pneumonia. 5. Paroxysmal atrial fibrillation, atrial flutter with rapid ventricular response at times. 6. Chronic kidney disease. 7. Morbid obesity. 8. Secondary pulmonary hypertension. 9. Chronic obstructive pulmonary disease. PLAN: 1. We will proceed with thoracentesis, we are consulting Interventional Radiology. 2. Continue to diurese. 3. Obtain ABG. 4. BiPAP. 5. Empiric antibiotics. 6. We will follow along and make further recommendations. I do appreciate the privilege in sharing the patient's care. ANSELMO LIANG MD DR: JARAD/chelsea JOB#: [id number] / [id number]
[2018-11-29 10:46] VITALS: BP 132/54
--- NOTE | 2018-11-29 11:15 | NUR ---
D/W Dr. Valerio making rounds now glucotrol held r/t patient blood sugar 78 and Actos held also r/t low blood sugar and noted can increase CHF, Dr. Valerio to discontinue Actos. See notes and orders.
[2018-11-29] MEDS: acetaZOLAMIDE SODIUM 500 MG VIAL. IVP SCH (11:56)
--- NOTE | 2018-11-29 13:53 | PDOC ---
PROGRESS NOTES Chief Complaint Chief Complaint Acute hypercapnic-hypoxemic respiratory failure - BIPAP/CPAP overnight Acute diastolic congestive heart failure - with weight gain, edema, pulm infiltrates Acute kidney injury - likely vasomotor vs cardiorenal. Previously she actually improved with diuresis, will treat as such Bilateral pulmonary infiltrates compatible with pulmonary edema, suspect cardiogenic - will diurese treating empirically for community acquired pneumonia CT scan showing significant effusion, will consult pulmonary Elevated troponin - likely 2/2 stress, renal failure Prior atrial fibrillation - cardizem converted to sinus previously Anemia - a bit lower, likely from her chronic disease. Monitor. 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 Tobacco dependence - continue counseling H/o GERD DM - Sliding scale Hypernatremia Metabolic alkalosis most likely due to excess diuretic use Plan: Cardiac ADA diet, 2L fluid restriction will continue with diuresis but will change to diamox in light of her lab results follow recommendations from consultants hopefully discharge soon PPX - heparin FULL CODE History of Present Illness History of Present Illness Seems improved today compared to yesterday Patient with no acute events reported , patient with no fever chills at bedside continues to have peripheral edema reassurance has been provided plan of care explaining detail all concerns address to the best of my abilities Vitals Vitals Vital Signs Date Time Temp Pulse Resp B/P (MAP) Pulse Ox O2 Delivery O2 Flow Rate FiO2 11/29/18 11:47 92 Nasal Cannula 3.0 11/29/18 10:46 98.2 73 16 132/54 (80) 98.2 Physical Exam General: No acute distress Heart: Regular rate (SR), Other (distnat heart sounds) Lungs: Crackles Abdomen: Normal bowel sounds Extremities: No cyanosis, Other (3+ bilateral LE pitting edema) Skin: No breakdown, No significant lesion Labs LABS Laboratory Tests Test 11/28/18 16:13 11/28/18 16:30 11/28/18 20:49 11/29/18 04:06 Glucose (Fingerstick) 156 mg/dL (70-99) 119 mg/dL (70-99) 91 mg/dL (70-99) O2 Saturation 88 % (92-99) Arterial Blood pH 7.45 (7.35-7.45) Arterial Blood pCO2 at Patient Temp 64 mmHg (35-46) Arterial Blood pO2 at Patient Temp 59 mmHg (65-108) Arterial Blood HCO3 44 mmol/L (21-28) Arterial Blood Base Excess 17 mmol/L (-3-3) FiO2 36 Test 11/29/18 07:44 Glucose (Fingerstick) 78 mg/dL (70-99) Assessment and Plan Assessmemt and Plan Problems Medical Problems: (1) Anasarca Status: Acute (2) CAP (community acquired pneumonia) Status: Acute (3) CHF (congestive heart failure) Status: Acute (4) COPD exacerbation Status: Acute (5) Pleural effusion Status: Acute Comment Review of Relevant I have reviewed the following items ritesh (where applicable) has been applied. Labs Laboratory Tests Test 11/27/18 16:10 11/27/18 21:08 11/28/18 07:34 11/28/18 11:10 Glucose (Fingerstick) 103 mg/dL (70-99) 171 mg/dL (70-99) 101 mg/dL (70-99) 117 mg/dL (70-99) Test 11/28/18 11:50 11/28/18 16:13 11/28/18 16:30 11/28/18 20:49 White Blood Count 5.0 x10^3/uL (4.0-11.0) Red Blood Count 2.73 x10^6/uL (3.50-5.40) Hemoglobin 7.2 g/dL (12.0-15.5) Hematocrit 23.4 % (36.0-47.0) Mean Corpuscular Volume 86 fL (79-100) Mean Corpuscular Hemoglobin 26 pg (25-35) Mean Corpuscular Hemoglobin Concent 31 g/dL (31-37) Red Cell Distribution Width 17.1 % (11.5-14.5) Platelet Count 208 x10^3/uL (140-400) Neutrophils (%) (Auto) 57 % (31-73) Lymphocytes (%) (Auto) 29 % (24-48) Monocytes (%) (Auto) 11 % (0-9) Eosinophils (%) (Auto) 2 % (0-3) Basophils (%) (Auto) 0 % (0-3) Neutrophils # (Auto) 2.9 x10^3uL (1.8-7.7) Lymphocytes # (Auto) 1.4 x10^3/uL (1.0-4.8) Monocytes # (Auto) 0.6 x10^3/uL (0.0-1.1) Eosinophils # (Auto) 0.1 x10^3/uL (0.0-0.7) Basophils # (Auto) 0.0 x10^3/uL (0.0-0.2) Sodium Level 156 mmol/L (136-145) Potassium Level 3.7 mmol/L (3.5-5.1) Chloride Level 108 mmol/L (98-107) Carbon Dioxide Level > 45 mmol/L (21-32) Anion Gap (6-14) Blood Urea Nitrogen 19 mg/dL (7-20) Creatinine 1.6 mg/dL (0.6-1.0) Estimated GFR (Cockcroft-Gault) 32.8 Glucose Level 113 mg/dL (70-99) Calcium Level 8.8 mg/dL (8.5-10.1) Thyroid Stimulating Hormone (TSH) 10.361 uIU/mL (0.358-3.74) Free Thyroxine 1.06 ng/dL (0.76-1.46) Total Triiodothyronine 62 ng/dL (71-180) Glucose (Fingerstick) 156 mg/dL (70-99) 119 mg/dL (70-99) O2 Saturation 88 % (92-99) Arterial Blood pH 7.45 (7.35-7.45) Arterial Blood pCO2 at Patient Temp 64 mmHg (35-46) Arterial Blood pO2 at Patient Temp 59 mmHg (65-108) Arterial Blood HCO3 44 mmol/L (21-28) Arterial Blood Base Excess 17 mmol/L (-3-3) FiO2 36 Test 11/29/18 04:06 11/29/18 07:44 Glucose (Fingerstick) 91 mg/dL (70-99) 78 mg/dL (70-99) Laboratory Tests Test 11/28/18 16:13 11/28/18 16:30 11/28/18 20:49 11/29/18 04:06 Glucose (Fingerstick) 156 mg/dL (70-99) 119 mg/dL (70-99) 91 mg/dL (70-99) O2 Saturation 88 % (92-99) Arterial Blood pH 7.45 (7.35-7.45) Arterial Blood pCO2 at Patient Temp 64 mmHg (35-46) Arterial Blood pO2 at Patient Temp 59 mmHg (65-108) Arterial Blood HCO3 44 mmol/L (21-28) Arterial Blood Base Excess 17 mmol/L (-3-3) FiO2 36 Test 11/29/18 07:44 Glucose (Fingerstick) 78 mg/dL (70-99) Microbiology 11/26/18 Blood Culture - Preliminary, Resulted NO GROWTH AFTER 2 DAYS Medications Current Medications Albuterol/ Ipratropium (Duoneb) 3 ml 1X ONCE NEB Last administered on 16:29; Start 11/26/18 at 16:15; Stop 11/26/18 at 16:16; Status DC Furosemide (Lasix) 60 mg 1X ONCE IVP Last administered on 11/26/18 18:52; Start 11/26/18 at 18:00; Stop 11/26/18 at 18:01; Status DC Ceftriaxone Sodium (Rocephin) 1 gm 1X ONCE IVP Last administered on 11/26/18 18:47; Start 11/26/18 at 18:00; Stop 11/26/18 at 18:02; Status DC Azithromycin 250 ml @ 250 mls/hr 1X ONCE IV Last administered on 11/26/18 19: 00; Start 11/26/18 at 18:00; Stop 11/26/18 at 18:59; Status DC Ondansetron HCl (Zofran) 4 mg PRN Q8HRS PRN IV NAUSEA/VOMITING; Start 11/26/18 at 18:15; Stop 11/27/18 at 18:14; Status DC Albuterol/ Ipratropium (Duoneb) 3 ml RTQID NEB Last administered on 11/27/18at 19 :33; Start 11/26/18 at 20:00; Stop 11/27/18 at 19:59; Status DC Furosemide (Lasix) 40 mg BID92 IVP Last administered on 11/29/18 08:29; Start 11/27/18 at 09:00; Stop 11/29/18 at 10:41; Status DC Amiodarone HCl (Cordarone) 200 mg BID PO Last administered on 11/29/18 08:36; Start 11/26/18 at 21:00 Apixaban (Eliquis) 5 mg BID PO Last administered on 11/29/18 08:36; Start at 21:00 Aspirin (Children'S Aspirin) 81 mg DAILYWBKFT PO Last administered on 11/29/18 08:36; Start 11/27/18 at 08:00 Albuterol/ Ipratropium (Duoneb) 3 ml RTQID NEB Last administered on 11/29/18 11 :44; Start 11/26/18 at 21:00 Metoprolol Succinate (Toprol Xl) 25 mg DAILY PO Last administered on 11/29/18 08:37; Start 11/27/18 at 09:00 Citalopram Hydrobromide (CeleXA) 40 mg DAILY PO Last administered on 11/29/18 08:35; Start 11/27/18 at 09:00 Glipizide (Glucotrol) 10 mg BIDBFRMEAL PO ; Start 11/27/18 at 07:30; Stop at 07:30; Status DC Atorvastatin Calcium (Lipitor) 10 mg QHS PO Last administered on 11/28/18 20:32 ; Start 11/26/18 at 21:00 Pioglitazone HCl (Actos) 45 mg DAILY PO Last administered on 11/28/18 08:43; Start 11/27/18 at 09:00 Quetiapine Fumarate (SEROquel) 100 mg QHS PO Last administered on 11/28/18 20: 33; Start 11/26/18 at 21:30 Insulin Human Lispro (HumaLOG) 0-5 UNITS TIDWMEALS SQ ; Start 11/27/18 at 08:00 Dextrose (Dextrose 50%-Water Syringe) 12.5 gm PRN Q15MIN PRN IV SEE COMMENTS; Start 11/26/18 at 21:00 Glipizide (Glucotrol) 10 mg DAILYAC PO Last administered on 11/28/18 08:42; Start 11/27/18 at 07:30 Info (Anti-Coagulation Monitoring By Pharmacy) 1 each PRN DAILY PRN MC SEE COMMENTS Last administered on 11/27/18 18:09; Start 11/27/18 at 15:00 Levothyroxine Sodium (Synthroid) 100 mcg DAILY06 PO Last administered on 05:29; Start 11/28/18 at 06:00; Stop 11/28/18 at 13:13; Status DC Levofloxacin/ Dextrose 150 ml @ 100 mls/hr Q24H IV ; Start 11/28/18 at 11:15; Stop 11/28/18 at 11:30; Status DC Doxycycline Hyclate 100 mg/ Dextrose 100 ml @ 50 mls/hr Q12HR IV Last administered on 11/29/18at 08:37; Start 11/28/18 at 12:00 Ceftriaxone Sodium (Rocephin) 1 gm Q24H IVP Last administered on 11/28/18at 16:50 ; Start 11/28/18 at 17:00 Lactobacillus Rhamnosus (Culturelle) 1 cap BID PO Last administered on at 08:35; Start 11/28/18 at 21:00 Acetazolamide Sodium (Diamox Inj) 250 mg DAILY IVP Last administered on at 11:56; Start 11/29/18 at 11:00 Active Scripts Active Metoprolol Succinate ( Xl ) (Metoprolol Succinate) 25 Mg Tab.er.24h 25 Mg PO DAILY 30 Days Duoneb 0.5-3(2.5) Mg/3 Ml (Albuterol/Ipratropium) 3 Ml Ampul.neb 3 Ml NEB RTQID 30 Days Eliquis (Apixaban) 5 Mg Tablet 5 Mg PO BID 30 Days Amiodarone Hcl 200 Mg Tablet 200 Mg PO BID 30 Days Aspirin 81 Mg Tab.chew 81 Mg PO DAILYWBKFT 30 Days Reported Furosemide 40 Mg Tablet 60 Mg PO DAILY Glipizide 10 Mg Tablet 1 Tab PO BID Seroquel (Quetiapine Fumarate) 200 Mg Tablet 0.5 Tab PO QHS Lovastatin 40 Mg Tablet 1 Tab PO HS Actos (Pioglitazone Hcl) 15 Mg Tablet 45 Mg PO DAILY Celexa (Citalopram Hydrobromide) 40 Mg Tablet 40 Mg PO DAILY Vitals/I & O Vital Sign - Last 24 Hours 11/28/18 11/28/18 11/28/18 11/28/18 15:00 15:30 16:30 19:00 Temp 97.6 97.9 97.6 97.9 Pulse 71 103 Resp 24 22 B/P (MAP) 124/56 (78) 144/60 (88) Pulse Ox 90 94 93 O2 Delivery Nasal Cannula BiPAP/CPAP Nasal Cannula O2 Flow Rate 4.0 4.0 4.0 11/28/18 11/28/18 11/28/18 11/28/18 19:42 19:42 20:32 22:32 Pulse 103 B/P (MAP) 144/60 Pulse Ox 95 90 O2 Delivery Nasal Cannula Nasal Cannula BiPAP/CPAP O2 Flow Rate 3.0 4.0 11/28/18 11/29/18 11/29/18 11/29/18 23:00 01:01 03:00 03:35 Temp 97.9 97.9 97.9 97.9 Pulse 89 84 Resp 22 22 B/P (MAP) 123/70 (87) 117/78 (91) Pulse Ox 94 92 O2 Delivery Nasal Cannula BiPAP/CPAP Nasal Cannula BiPAP/CPAP O2 Flow Rate 4.0 4.0 11/29/18 11/29/18 11/29/18 11/29/18 07:00 07:51 07:53 08:00 Temp 97.7 97.7 Pulse 102 Resp 22 B/P (MAP) 126/49 (74) Pulse Ox 99 99 O2 Delivery Nasal Cannula Nasal Cannula BiPAP/CPAP Bi-pap O2 Flow Rate 4.0 3.0 11/29/18 11/29/18 11/29/18 11/29/18 08:36 08:37 10:46 11:47 Temp 98.2 98.2 Pulse 102 102 73 Resp 16 B/P (MAP) 126/49 126/49 132/54 (80) Pulse Ox 90 92 O2 Delivery Room Air Nasal Cannula O2 Flow Rate 3.0 Intake and Output 11/28/18 11/28/18 11/29/18 15:00 23:00 07:00 Intake Total 360 ml 450 ml 0 ml Balance 360 ml 450 ml 0 ml YANNI TELLEZ MD Nov 29, 2018 13:53
[2018-11-29 15:00] VITALS: BP 112/52
[2018-11-29] MEDS: cefTRIAXone IV Push 1 GM VIAL. IVP SCH (16:28)
[2018-11-29 19:00] VITALS: BP 119/60
[2018-11-29] MEDS: ATORVASTATIN CALCIUM 10 MG TABLET. PO SCH (21:06)
[2018-11-29] MEDS: QUEtiapine 100 MG TABLET. PO SCH (21:07)
[2018-11-29 23:04] VITALS: BP 109/53
[2018-11-30] VITALS (15 sets, daily range): BP systolic 101–156; BP diastolic 34–64
[2018-11-30] MEDS: IPRATRPIUM/ALBUTEROL 0.5/2.5MG 3 ML NEBU. NEB SCH ×4 (07:18→19:31)
[2018-11-30] MEDS: glipiZIDE 5 MG TABLET PO SCH (07:30)
[2018-11-30] MEDS: INSULIN LISPRO 300 UNITS/3 ML INSULN.PEN. SQ SCH ×3 (07:37→17:00)
--- NOTE | 2018-11-30 08:03 | NUR ---
Patient not eating breakfast, glucotrol hel per protocol, see emar.
--- NOTE | 2018-11-30 08:06 | PDOC ---
PROGRESS NOTES Chief Complaint Chief Complaint Acute hypercapnic-hypoxemic respiratory failure - BIPAP/CPAP overnight Acute diastolic congestive heart failure - with weight gain, edema, pulm infiltrates Acute kidney injury - likely vasomotor vs cardiorenal. Previously she actually improved with diuresis, will treat as such Bilateral pulmonary infiltrates compatible with pulmonary edema, suspect cardiogenic - will diurese treating empirically for community acquired pneumonia CT scan showing significant effusion, will consult pulmonary Elevated troponin - likely 2/2 stress, renal failure Prior atrial fibrillation - cardizem converted to sinus previously Anemia - a bit lower, likely from her chronic disease. Monitor. Transfuse for Hb < 8 with her CHF history Morbid obesity - will prevocational/rehabilitation counselor Tobacco dependence - continue counseling H/o GERD DM - Sliding scale Hypernatremia Metabolic alkalosis most likely due to excess diuretic use Hypothyroidism - likely multifactorial, acquired atrophy, chronic amiodarone. Would recommend lowest safe dosing of amio and start 50mcg levothyroxine, start increasing dose if necessary based on 6 and 12 week TSH readings Plan: Cardiac ADA diet, 2L fluid restriction will continue with diuresis but will change to diamox in light of her lab results follow recommendations from consultants hopefully discharge soon PPX - heparin FULL CODE History of Present Illness History of Present Illness 63 year old female w/ PMHx MARIE, COPD, CHF, Afib who presented to ER today for evaluation of trouble breathing started rather suddenly. Patient says she was walking to the bathroom to use the toilet when she walked back to her room she started having severe trouble breathing. She says she tripped and fell down, hit her head on the floor, striking her left eye. She denies any loss of consciousness. She does have headache. She denies any chest pain, no fever. Patient admitted of some nonproductive cough. Patient is a former smoker, she stopped smoking about 3 months ago. Patient is on a CPAP at night. Patient is on 3 L of oxygen as needed. Noted in ED with Cr. 1.7, Hb 8.4 and nt-pro BNP of 6092 with significant edema of bilateral LE, placed on BIPAP, given 60mg IV lasix. Seems improved today compared to yesterday Patient with no acute events reported , patient with no fever chills at bedside continues to have peripheral edema reassurance has been provided plan of care explaining detail all concerns address to the best of my abilities Notably TSH back > 10 and abnormal T3, still c/o not walking at all. Hb 6.9 today. Cr. same. Sodium better Plan: Labs today Transfuse 2u PRBC, goal Hb > 8 for her. Will give 40mg of lasix between units She needs PT/OT. Has not been out of bed. Wait to walk her until after transfusion. Hypothyroidism - likely multifactorial, acquired atrophy, chronic amiodarone. Would recommend lowest safe dosing of amio and start 50mcg levothyroxine, start increasing dose if necessary based on 6 and 12 week TSH readings Vitals Vitals Vital Signs Date Time Temp Pulse Resp B/P (MAP) Pulse Ox O2 Delivery O2 Flow Rate FiO2 11/30/18 07:18 BiPAP/CPAP 11/30/18 03:36 97.9 68 20 134/55 (81) 95 97.9 11/29/18 20:10 3.0 Physical Exam General: No acute distress Heart: Regular rate (SR), Other (distnat heart sounds) Lungs: Crackles Abdomen: Normal bowel sounds Extremities: No cyanosis, Other (3+ bilateral LE pitting edema) Skin: No breakdown, No significant lesion Labs LABS Laboratory Tests Test 11/29/18 11:38 11/29/18 17:00 11/29/18 20:09 11/30/18 07:37 Glucose (Fingerstick) 110 mg/dL (70-99) 149 mg/dL (70-99) 139 mg/dL (70-99) 139 mg/dL (70-99) Assessment and Plan Assessmemt and Plan Problems Medical Problems: (1) Anasarca Status: Acute (2) CAP (community acquired pneumonia) Status: Acute (3) CHF (congestive heart failure) Status: Acute (4) COPD exacerbation Status: Acute (5) Pleural effusion Status: Acute Comment Review of Relevant I have reviewed the following items ritesh (where applicable) has been applied. Labs Laboratory Tests Test 11/28/18 11:10 11/28/18 11:50 11/28/18 16:13 11/28/18 16:30 Glucose (Fingerstick) 117 mg/dL (70-99) 156 mg/dL (70-99) White Blood Count 5.0 x10^3/uL (4.0-11.0) Red Blood Count 2.73 x10^6/uL (3.50-5.40) Hemoglobin 7.2 g/dL (12.0-15.5) Hematocrit 23.4 % (36.0-47.0) Mean Corpuscular Volume 86 fL (79-100) Mean Corpuscular Hemoglobin 26 pg (25-35) Mean Corpuscular Hemoglobin Concent 31 g/dL (31-37) Red Cell Distribution Width 17.1 % (11.5-14.5) Platelet Count 208 x10^3/uL (140-400) Neutrophils (%) (Auto) 57 % (31-73) Lymphocytes (%) (Auto) 29 % (24-48) Monocytes (%) (Auto) 11 % (0-9) Eosinophils (%) (Auto) 2 % (0-3) Basophils (%) (Auto) 0 % (0-3) Neutrophils # (Auto) 2.9 x10^3uL (1.8-7.7) Lymphocytes # (Auto) 1.4 x10^3/uL (1.0-4.8) Monocytes # (Auto) 0.6 x10^3/uL (0.0-1.1) Eosinophils # (Auto) 0.1 x10^3/uL (0.0-0.7) Basophils # (Auto) 0.0 x10^3/uL (0.0-0.2) Sodium Level 156 mmol/L (136-145) Potassium Level 3.7 mmol/L (3.5-5.1) Chloride Level 108 mmol/L (98-107) Carbon Dioxide Level > 45 mmol/L (21-32) Anion Gap (6-14) Blood Urea Nitrogen 19 mg/dL (7-20) Creatinine 1.6 mg/dL (0.6-1.0) Estimated GFR (Cockcroft-Gault) 32.8 Glucose Level 113 mg/dL (70-99) Calcium Level 8.8 mg/dL (8.5-10.1) Thyroid Stimulating Hormone (TSH) 10.361 uIU/mL (0.358-3.74) Free Thyroxine 1.06 ng/dL (0.76-1.46) Total Triiodothyronine 62 ng/dL (71-180) O2 Saturation 88 % (92-99) Arterial Blood pH 7.45 (7.35-7.45) Arterial Blood pCO2 at Patient Temp 64 mmHg (35-46) Arterial Blood pO2 at Patient Temp 59 mmHg (65-108) Arterial Blood HCO3 44 mmol/L (21-28) Arterial Blood Base Excess 17 mmol/L (-3-3) FiO2 36 Test 11/28/18 20:49 11/29/18 04:06 11/29/18 07:44 11/29/18 11:38 Glucose (Fingerstick) 119 mg/dL (70-99) 91 mg/dL (70-99) 78 mg/dL (70-99) 110 mg/dL (70-99) Test 11/29/18 17:00 11/29/18 20:09 11/30/18 07:37 Glucose (Fingerstick) 149 mg/dL (70-99) 139 mg/dL (70-99) 139 mg/dL (70-99) Laboratory Tests Test 11/29/18 11:38 11/29/18 17:00 11/29/18 20:09 11/30/18 07:37 Glucose (Fingerstick) 110 mg/dL (70-99) 149 mg/dL (70-99) 139 mg/dL (70-99) 139 mg/dL (70-99) Microbiology 11/26/18 Blood Culture - Preliminary, Resulted NO GROWTH AFTER 3 DAYS Medications Current Medications Albuterol/ Ipratropium (Duoneb) 3 ml 1X ONCE NEB Last administered on 16:29; Start 11/26/18 at 16:15; Stop 11/26/18 at 16:16; Status DC Furosemide (Lasix) 60 mg 1X ONCE IVP Last administered on 11/26/18at 18:52; Start 11/26/18 at 18:00; Stop 11/26/18 at 18:01; Status DC Ceftriaxone Sodium (Rocephin) 1 gm 1X ONCE IVP Last administered on 11/26/18 18:47; Start 11/26/18 at 18:00; Stop 11/26/18 at 18:02; Status DC Azithromycin 250 ml @ 250 mls/hr 1X ONCE IV Last administered on 11/26/18 19: 00; Start 11/26/18 at 18:00; Stop 11/26/18 at 18:59; Status DC Ondansetron HCl (Zofran) 4 mg PRN Q8HRS PRN IV NAUSEA/VOMITING; Start 11/26/18 at 18:15; Stop 11/27/18 at 18:14; Status DC Albuterol/ Ipratropium (Duoneb) 3 ml RTQID NEB Last administered on 11/27/18 19 :33; Start 11/26/18 at 20:00; Stop 11/27/18 at 19:59; Status DC Furosemide (Lasix) 40 mg BID92 IVP Last administered on 11/29/18 08:29; Start 11/27/18 at 09:00; Stop 11/29/18 at 10:41; Status DC Amiodarone HCl (Cordarone) 200 mg BID PO Last administered on 11/29/18 21:06; Start 11/26/18 at 21:00 Apixaban (Eliquis) 5 mg BID PO Last administered on 11/29/18 21:07; Start at 21:00 Aspirin (Children'S Aspirin) 81 mg DAILYWBKFT PO Last administered on 11/29/18 08:36; Start 11/27/18 at 08:00 Albuterol/ Ipratropium (Duoneb) 3 ml RTQID NEB Last administered on 11/30/18 07:18; Start 11/26/18 at 21:00 Metoprolol Succinate (Toprol Xl) 25 mg DAILY PO Last administered on 11/29/18 08:37; Start 11/27/18 at 09:00 Citalopram Hydrobromide (CeleXA) 40 mg DAILY PO Last administered on 11/29/18 08:35; Start 11/27/18 at 09:00 Glipizide (Glucotrol) 10 mg BIDBFRMEAL PO ; Start 11/27/18 at 07:30; Stop at 07:30; Status DC Atorvastatin Calcium (Lipitor) 10 mg QHS PO Last administered on 11/29/18 21:06 ; Start 11/26/18 at 21:00 Pioglitazone HCl (Actos) 45 mg DAILY PO Last administered on 11/28/18 08:43; Start 11/27/18 at 09:00; Stop 11/29/18 at 15:08; Status DC Quetiapine Fumarate (SEROquel) 100 mg QHS PO Last administered on 11/29/18 21: 07; Start 11/26/18 at 21:30 Insulin Human Lispro (HumaLOG) 0-5 UNITS TIDWMEALS SQ ; Start 11/27/18 at 08:00 Dextrose (Dextrose 50%-Water Syringe) 12.5 gm PRN Q15MIN PRN IV SEE COMMENTS; Start 11/26/18 at 21:00 Glipizide (Glucotrol) 10 mg DAILYAC PO Last administered on 11/28/18at 08:42; Start 11/27/18 at 07:30 Info (Anti-Coagulation Monitoring By Pharmacy) 1 each PRN DAILY PRN MC SEE COMMENTS Last administered on 11/27/18at 18:09; Start 11/27/18 at 15:00 Levothyroxine Sodium (Synthroid) 100 mcg DAILY06 PO Last administered on 05:29; Start 11/28/18 at 06:00; Stop 11/28/18 at 13:13; Status DC Levofloxacin/ Dextrose 150 ml @ 100 mls/hr Q24H IV ; Start 11/28/18 at 11:15; Stop 11/28/18 at 11:30; Status DC Doxycycline Hyclate 100 mg/ Dextrose 100 ml @ 50 mls/hr Q12HR IV Last administered on 11/29/18at 21:07; Start 11/28/18 at 12:00 Ceftriaxone Sodium (Rocephin) 1 gm Q24H IVP Last administered on 11/29/18at 16:28 ; Start 11/28/18 at 17:00 Lactobacillus Rhamnosus (Culturelle) 1 cap BID PO Last administered on at 21:06; Start 11/28/18 at 21:00 Acetazolamide Sodium (Diamox Inj) 250 mg DAILY IVP Last administered on at 11:56; Start 11/29/18 at 11:00 Active Scripts Active Metoprolol Succinate ( Xl ) (Metoprolol Succinate) 25 Mg Tab.er.24h 25 Mg PO DAILY 30 Days Duoneb 0.5-3(2.5) Mg/3 Ml (Albuterol/Ipratropium) 3 Ml Ampul.neb 3 Ml NEB RTQID 30 Days Eliquis (Apixaban) 5 Mg Tablet 5 Mg PO BID 30 Days Amiodarone Hcl 200 Mg Tablet 200 Mg PO BID 30 Days Aspirin 81 Mg Tab.chew 81 Mg PO DAILYWBKFT 30 Days Reported Furosemide 40 Mg Tablet 60 Mg PO DAILY Glipizide 10 Mg Tablet 1 Tab PO BID Seroquel (Quetiapine Fumarate) 200 Mg Tablet 0.5 Tab PO QHS Lovastatin 40 Mg Tablet 1 Tab PO HS Actos (Pioglitazone Hcl) 15 Mg Tablet 45 Mg PO DAILY Celexa (Citalopram Hydrobromide) 40 Mg Tablet 40 Mg PO DAILY Vitals/I & O Vital Sign - Last 24 Hours 11/29/18 11/29/18 11/29/18 11/29/18 08:36 08:37 10:46 11:47 Temp 98.2 98.2 Pulse 102 102 73 Resp 16 B/P (MAP) 126/49 126/49 132/54 (80) Pulse Ox 90 92 O2 Delivery Room Air Nasal Cannula O2 Flow Rate 3.0 11/29/18 11/29/18 11/29/18 11/29/18 15:00 15:41 19:00 19:36 Temp 97.4 98.1 97.4 98.1 Pulse 100 107 Resp 18 20 B/P (MAP) 112/52 (72) 119/60 (79) Pulse Ox 93 90 92 O2 Delivery Room Air Nasal Cannula Nasal Cannula Nasal Cannula O2 Flow Rate 3.0 3.0 11/29/18 11/29/18 11/29/18 11/30/18 20:10 21:06 23:04 00:00 Temp 98.3 98.3 Pulse 107 106 Resp 20 B/P (MAP) 119/60 109/53 (71) Pulse Ox 90 92 O2 Delivery Bi-pap Nasal Cannula BiPAP/CPAP O2 Flow Rate 3.0 11/30/18 11/30/18 11/30/18 11/30/18 01:55 03:36 05:02 07:18 Temp 97.9 97.9 Pulse 68 Resp 20 B/P (MAP) 134/55 (81) Pulse Ox 95 O2 Delivery BiPAP/CPAP BiPAP/CPAP BiPAP/CPAP BiPAP/CPAP Intake and Output 11/29/18 11/29/18 11/30/18 15:00 23:00 07:00 Intake Total 1880 ml 500 ml Output Total 1500 ml 800 ml 600 ml Balance 380 ml -300 ml -600 ml KIANA ORTEZ MD Nov 30, 2018 08:06
[2018-11-30] MEDS: LACTOBACILLUS RHAMNOSUS GG 1 CAPSULE. PO SCH ×2 (08:23→21:11)
[2018-11-30] MEDS: LEVOTHYROXINE 50 MCG TABLET PO SCH (08:23)
[2018-11-30] MEDS: ASPIRIN CHEWABLE 81 MG TABLET. PO SCH (08:24)
[2018-11-30] MEDS: CITALOPRAM 20 MG TABLET. PO SCH (08:24)
[2018-11-30] MEDS: AMIODARONE HCL 200 MG TABLET. PO SCH ×2 (08:24→21:11)
[2018-11-30] MEDS: APIXABAN 5 MG TABLET. PO SCH ×2 (08:24→21:11)
[2018-11-30] MEDS: acetaZOLAMIDE SODIUM 500 MG VIAL. IVP SCH (08:25)
[2018-11-30] MEDS: METOPROLOL SUCC 24HR ER 25 MG TAB.ER.24H. PO SCH (08:25)
[2018-11-30] MEDS: DOXYCYCLINE HYCLATE 100 MG in IV DEXTROSE 5% 100ML 100 ML IV SCH ×2 (08:25→21:11)
--- NOTE | 2018-11-30 09:31 | PDOC ---
PULMONARY PROGRESS NOTES Subjective sob, cough better, used bipap last night has lauren, is on home cpap, and 02 Vitals Vital Signs Date Time Temp Pulse Resp B/P (MAP) Pulse Ox O2 Delivery O2 Flow Rate FiO2 11/30/18 08:25 64 105/48 11/30/18 07:18 BiPAP/CPAP 11/30/18 07:00 98.0 22 98 5.0 98.0 ROS: No Nausea, No Chest Pain, No Abdominal Pain General: Alert, No acute distress HEENT: Other (bipap mask on) Lungs: Crackles Cardiovascular: S1, S2 Abdomen: Soft, Non-tender, Other Neuro Exam: Alert Extremities: Other (edema) Skin: Warm Labs Laboratory Tests Test 11/28/18 11:10 11/28/18 11:50 11/28/18 16:13 11/28/18 16:30 Glucose (Fingerstick) 117 mg/dL (70-99) 156 mg/dL (70-99) White Blood Count 5.0 x10^3/uL (4.0-11.0) Red Blood Count 2.73 x10^6/uL (3.50-5.40) Hemoglobin 7.2 g/dL (12.0-15.5) Hematocrit 23.4 % (36.0-47.0) Mean Corpuscular Volume 86 fL (79-100) Mean Corpuscular Hemoglobin 26 pg (25-35) Mean Corpuscular Hemoglobin Concent 31 g/dL (31-37) Red Cell Distribution Width 17.1 % (11.5-14.5) Platelet Count 208 x10^3/uL (140-400) Neutrophils (%) (Auto) 57 % (31-73) Lymphocytes (%) (Auto) 29 % (24-48) Monocytes (%) (Auto) 11 % (0-9) Eosinophils (%) (Auto) 2 % (0-3) Basophils (%) (Auto) 0 % (0-3) Neutrophils # (Auto) 2.9 x10^3uL (1.8-7.7) Lymphocytes # (Auto) 1.4 x10^3/uL (1.0-4.8) Monocytes # (Auto) 0.6 x10^3/uL (0.0-1.1) Eosinophils # (Auto) 0.1 x10^3/uL (0.0-0.7) Basophils # (Auto) 0.0 x10^3/uL (0.0-0.2) Sodium Level 156 mmol/L (136-145) Potassium Level 3.7 mmol/L (3.5-5.1) Chloride Level 108 mmol/L (98-107) Carbon Dioxide Level > 45 mmol/L (21-32) Anion Gap (6-14) Blood Urea Nitrogen 19 mg/dL (7-20) Creatinine 1.6 mg/dL (0.6-1.0) Estimated GFR (Cockcroft-Gault) 32.8 Glucose Level 113 mg/dL (70-99) Calcium Level 8.8 mg/dL (8.5-10.1) Thyroid Stimulating Hormone (TSH) 10.361 uIU/mL (0.358-3.74) Free Thyroxine 1.06 ng/dL (0.76-1.46) Total Triiodothyronine 62 ng/dL (71-180) O2 Saturation 88 % (92-99) Arterial Blood pH 7.45 (7.35-7.45) Arterial Blood pCO2 at Patient Temp 64 mmHg (35-46) Arterial Blood pO2 at Patient Temp 59 mmHg (65-108) Arterial Blood HCO3 44 mmol/L (21-28) Arterial Blood Base Excess 17 mmol/L (-3-3) FiO2 36 Test 11/28/18 20:49 11/29/18 04:06 11/29/18 07:44 11/29/18 11:38 Glucose (Fingerstick) 119 mg/dL (70-99) 91 mg/dL (70-99) 78 mg/dL (70-99) 110 mg/dL (70-99) Test 11/29/18 17:00 11/29/18 20:09 11/30/18 07:37 Glucose (Fingerstick) 149 mg/dL (70-99) 139 mg/dL (70-99) 139 mg/dL (70-99) Laboratory Tests Test 11/29/18 11:38 11/29/18 17:00 11/29/18 20:09 11/30/18 07:37 Glucose (Fingerstick) 110 mg/dL (70-99) 149 mg/dL (70-99) 139 mg/dL (70-99) 139 mg/dL (70-99) Medications Active Scripts Medications Dose Route/Sig Max Daily Dose Days Date Category Furosemide 40 Mg Tablet 60 Mg PO DAILY 11/26/18 Reported Metoprolol Succinate ( Xl ) (Metoprolol Succinate) 25 Mg Tab.er.24h 25 Mg PO DAILY 30 08/13/18 Rx Duoneb 0.5-3(2.5) Mg/3 Ml (Albuterol/Ipratropium) 3 Ml Ampul.neb 3 Ml NEB RTQID 08/04/18 Rx Eliquis (Apixaban) 5 Mg Tablet 5 Mg PO BID 30 08/04/18 Rx Amiodarone Hcl 200 Mg Tablet 200 Mg PO BID 30 08/04/18 Rx Aspirin 81 Mg Tab.chew 81 Mg PO DAILYWBKFT 08/04/18 Rx Glipizide 10 Mg Tablet 1 Tab PO BID 09/24/17 Reported Seroquel (Quetiapine Fumarate) 200 Mg Tablet 0.5 Tab PO QHS 09/20/17 Reported Lovastatin 40 Mg Tablet 1 Tab PO HS 11/04/14 Reported Actos (Pioglitazone Hcl) 15 Mg Tablet 45 Mg PO DAILY 11/03/14 Reported Celexa (Citalopram Hydrobromide) 40 Mg Tablet 40 Mg PO DAILY 11/03/14 Reported Impression . IMPRESSION: 1. Cance-oo-aqwxyiu hypercapnic hypoxemic respiratory failure. 2. Laruv-ex-vrxwdnl congestive heart failure. 3. Right-sided pleural effusion. 4. Possible pneumonia. 5. Paroxysmal atrial fibrillation, atrial flutter with rapid ventricular response at times. 6. Chronic kidney disease. 7. Morbid obesity. LAUREN on home cpap 8. Secondary pulmonary hypertension. 9. Chronic obstructive pulmonary disease. Plan . PLAN: thoracentesis not done, not enough pf cont abx BD keep I<O, lasix, monitor cr, k cont bipap prn during day and cont at night, setting reviewed on eliquis increase activity lose wt discussed w pt, her , WILLIE Casanova MD Nov 30, 2018 09:31
[2018-11-30 10:18] LABS: BASO % 1 % (0-3); EOS # 0.1 x10^3/uL (0.0-0.7); EOS % 2 % (0-3); HEMATOCRIT 22.8 % (36.0-47.0); LYMPH # 1.4 x10^3/uL (1.0-4.8); LYMPH % 29 % (24-48); MEAN CORPUSCULAR HEMOGLOBIN 26 pg (25-35); MEAN CORPUSCULAR HGB CONC 30 g/dL (31-37); MEAN CORPUSCULAR VOLUME 87 fL (79-100); MONO # 0.6 x10^3/uL (0.0-1.1); MONO % 12 % (0-9); NEUT # 2.7 x10^3uL (1.8-7.7); NEUT % 56 % (31-73); PLATELET COUNT 213 x10^3/uL (140-400); RED BLOOD COUNT 2.62 x10^6/uL (3.50-5.40); RED CELL DISTRIBUTION WIDTH 17.6 % (11.5-14.5); WHITE BLOOD COUNT 4.8 x10^3/uL (4.0-11.0)
[2018-11-30 10:21] LABS: HEMOGLOBIN 6.8 g/dL (12.0-15.5)
--- NOTE | 2018-11-30 10:23 | NUR ---
Critical H/H 6.8/22.8 reported by Deidra in lab reported to Dr. Foley now. See orders.
[2018-11-30 10:36] LABS: CALCIUM 9.3 mg/dL (8.5-10.1); CREATININE 1.7 mg/dL (0.6-1.0); GFR 30.6; POTASSIUM 3.2 mmol/L (3.5-5.1)
--- NOTE | 2018-11-30 10:55 | NUR ---
Patient received a Patient's Guide to Blood Transfusion and wishes to proceed with blood transfusion, consent witnessed. Patient verb. understandingt S&S transfusion reaction to report. Continue cares and monitor.
[2018-11-30] MEDS ORDERED: diphenhydrAMINE HCL 25 MG CAPSULE PO PRN (11:00)
[2018-11-30] MEDS ORDERED: FUROSEMIDE 40 MG/4 ML VIAL. IVP ONE (11:00)
[2018-11-30] MEDS ORDERED: diphenhydrAMINE ORAL ELIXIR 12.5 MG/5 ML ML PO PRN (11:00)
[2018-11-30] MEDS ORDERED: ACETAMINOPHEN 325 MG TABLET. PO ONE (11:15)
[2018-11-30] MEDS: POTASSIUM CHLORIDE 20 MEQ TABLET.ER. PO SCH (11:53)
[2018-11-30] MEDS ORDERED: ACETAMINOPHEN 325 MG TABLET. PO PRN (12:15)
[2018-11-30] MEDS: ANTI-COAG MONITOR BY PHARMACY. MC PRN (13:14)
--- NOTE | 2018-11-30 14:35 | NUR ---
First unit packed red blood cells infusing #20 insyte right AC without difficulty, patient verb. understanding S&S reaction to report. See transfusion record. Premed. given per order. Continue cares and monitor.
--- NOTE | 2018-11-30 14:47 | NUR ---
See transfusion record, VSS after 15 minutes, rate 110 for blood transfusion, continue to monitor.
[2018-11-30] MEDS: cefTRIAXone IV Push 1 GM VIAL. IVP SCH (16:44)
--- NOTE | 2018-11-30 17:14 | NUR ---
First unit packed red blood cells infused without problem. See transfusion record. Lasix 40 mg IVP between units given. Patient and verb. understanding POC, second unit to be given now. Patient refusing pm meal. Insulin held per protocol. Patient resting with Bipap on throughout transfusion.
--- NOTE | 2018-11-30 17:54 | NUR ---
Second unit packed red blood cells infusing right wrist #20 insyte without difficulty. See transfusion record. Patient sleeping with Bipap on, patient's husb. at bedside. Continue to monitor per protocol.
--- NOTE | 2018-11-30 18:08 | NUR ---
Second unit packed red blood cells infusing without difficulty, VSS, rate 110 cc per hour. Continue to monitor per protocol, see transfusion record.
[2018-11-30] MEDS: QUEtiapine 100 MG TABLET. PO SCH (21:11)
[2018-11-30] MEDS: ATORVASTATIN CALCIUM 10 MG TABLET. PO SCH (21:11)
[2018-12-01 03:04] VITALS: BP 128/64
[2018-12-01] MEDS: LEVOTHYROXINE 50 MCG TABLET PO SCH (06:05)
[2018-12-01 07:00] VITALS: BP 141/57
[2018-12-01 07:14] LABS: CALCIUM 9.1 mg/dL (8.5-10.1); CREATININE 1.6 mg/dL (0.6-1.0); GFR 32.8; POTASSIUM 3.1 mmol/L (3.5-5.1)
[2018-12-01] MEDS: INSULIN LISPRO 300 UNITS/3 ML INSULN.PEN. SQ SCH ×2 (08:00→11:19)
[2018-12-01] MEDS: IPRATRPIUM/ALBUTEROL 0.5/2.5MG 3 ML NEBU. NEB SCH ×2 (08:02→12:23)
--- NOTE | 2018-12-01 08:22 | NUR ---
SW following pt. PT/OT pending. SW will await for PT/OT recommendation to eval needs. Will continue to follow.
[2018-12-01] MEDS: CITALOPRAM 20 MG TABLET. PO SCH (08:45)
[2018-12-01] MEDS: ASPIRIN CHEWABLE 81 MG TABLET. PO SCH (08:45)
[2018-12-01] MEDS: glipiZIDE 5 MG TABLET PO SCH (08:45)
[2018-12-01] MEDS: METOPROLOL SUCC 24HR ER 25 MG TAB.ER.24H. PO SCH (08:45)
[2018-12-01] MEDS: APIXABAN 5 MG TABLET. PO SCH (08:46)
[2018-12-01] MEDS: POTASSIUM CHLORIDE 20 MEQ TABLET.ER. PO SCH (08:46)
[2018-12-01] MEDS: LACTOBACILLUS RHAMNOSUS GG 1 CAPSULE. PO SCH (08:46)
[2018-12-01] MEDS: AMIODARONE HCL 200 MG TABLET. PO SCH (08:46)
[2018-12-01] MEDS: acetaZOLAMIDE SODIUM 500 MG VIAL. IVP SCH (08:47)
[2018-12-01] MEDS: DOXYCYCLINE HYCLATE 100 MG in IV DEXTROSE 5% 100ML 100 ML IV SCH (08:47)
[2018-12-01 10:10] LABS: BASO % 0 % (0-3); EOS # 0.1 x10^3/uL (0.0-0.7); EOS % 2 % (0-3); HEMATOCRIT 26.7 % (36.0-47.0); HEMOGLOBIN 8.4 g/dL (12.0-15.5); LYMPH # 1.5 x10^3/uL (1.0-4.8); LYMPH % 31 % (24-48); MEAN CORPUSCULAR HEMOGLOBIN 27 pg (25-35); MEAN CORPUSCULAR HGB CONC 31 g/dL (31-37); MEAN CORPUSCULAR VOLUME 86 fL (79-100); MONO # 0.5 x10^3/uL (0.0-1.1); MONO % 11 % (0-9); NEUT # 2.7 x10^3uL (1.8-7.7); NEUT % 55 % (31-73); PLATELET COUNT 200 x10^3/uL (140-400); RED CELL DISTRIBUTION WIDTH 16.8 % (11.5-14.5)
[2018-12-01 11:00] VITALS: BP 132/51
[2018-12-01] MEDS ORDERED: POTASSIUM CHLORIDE 20 MEQ TABLET.ER. PO ONE (12:00)
[2018-12-01] MEDS ORDERED: POTA20TA4 PO (12:40)
[2018-12-01] MEDS ORDERED: LEVO50TA PO (12:40)
[2018-12-01] MEDS ORDERED: DOXY100T PO (12:40)
--- NOTE | 2018-12-01 12:41 | SNU/HH DC ---
DISCHARGE WITH HOME HEALTH DISCHARGE INFORMATION: Discharge Date: Dec 01, 2018 Final Diagnosis: Problems Medical Problems: (1) Anasarca Status: Acute (2) CAP (community acquired pneumonia) Status: Acute (3) CHF (congestive heart failure) Status: Acute (4) COPD exacerbation Status: Acute (5) Pleural effusion Status: Acute Condition on Discharge: Stable CODE STATUS: Code Status: Full HOME HEALTH: Face to Face: I certify this patient is under my care and that I, or a nurse practitioner or physician's laboratory assistant working with me, had a face to face encounter that meets the physician face to face encounter requirements with this patient on []. Medical Complications: CHF, COPD, Falls, HTN Physical Therapy For: Evalulation/Treatment Occupational Therapy For: Evaluation/Treatment Speech Language Pathology For: Evaluation/Treatment Home Health Aide For: Self-care COAL DELIVERER For: Community Resources Pt Meets Homebound Status: Unsteady balance w/ amb, POST DISCHARGE ORDERS: Activity Instructions for Disc: Activity as tolerated Weight Bearing Status after Di: As tolerated DIET AFTER DISCHARGE: Cardiac Wound/Incision Care: Keep wound/cast CDI CHECKS AFTER DISCHARGE: Checks after discharge: Check blood press - daily, Check blood sugar, ac/hs, Weigh Yourself Daily FOLLOW-UP: Follow up with: PCP 1 month, rpt TSH, FT3, FT4 in 4- 6 weeks time from dc TREATMENT/EQUIPMENT ORDERS: Adaptive Equipment Issued: None Discharge Respiratory Equipmen: Oxygen CERTIFICATION STATEMENT: Certification Statement: Certification Statement: Based on the above finding, I certify that this patient is confined to the home and needs intermittent fci care, physical therapy and/or speech therapy, or continues to need occupational therapy.~ This patient is under my care, and I have initiated the establishment of the plan of care.~ This patient will be followed by myself or a community physician who will periodically review the plan of care. Home Meds Active Scripts Levothyroxine Sodium (SYNTHROID) 50 Mcg Tablet, 50 MCG PO DAILY06 for hypothy MDD 1 for 30 Days, #30 TAB Prov:CHARLOTTE NOVA MD 12/01/18 Potassium Chloride (KLOR-CON M20) 20 Meq Tab.er.prt, 20 MEQ PO DAILYWBKFT for hypokal MDD 1 for 30 Days, #30 TAB.SR Prov:CHARLOTTE NOVA MD 12/01/18 Doxycycline Hyclate (DOXYCYCLINE HYCLATE) 100 Mg Tablet, 100 MG PO BID for pna MDD 1 for 7 Days, #14 TAB Prov:CHARLOTTE NOVA MD 12/01/18 Metoprolol Succinate (METOPROLOL SUCCINATE ( XL )) 25 Mg Tab.er.24h, 25 MG PO DAILY for afib for 30 Days, #30 TAB.SR Prov:ANKIT CARRINGTON MD 08/13/18 Ipratropium/Albuterol Sulfate (DUONEB 0.5-3(2.5) MG/3 ML) 3 Ml Ampul.neb, 3 ML NEB RTQID for lungs for 30 Days, #120 EACH Prov:FABIOLA NIELSEN MD 08/04/18 Apixaban (ELIQUIS) 5 Mg Tablet, 5 MG PO BID for heart for 30 Days, #60 TAB Prov:FABIOLA NIELSEN MD 08/04/18 Amiodarone Hcl (AMIODARONE HCL) 200 Mg Tablet, 200 MG PO BID for heart rhythm for 30 Days, #60 TAB Prov:FABIOLA NIELSEN MD 08/04/18 Aspirin (ASPIRIN) 81 Mg Tab.chew, 81 MG PO DAILYWBKFT for heart health for 30 Days, #30 TAB.CHEW Prov:FABIOLA NIELSEN MD 08/04/18 Reported Medications Furosemide (FUROSEMIDE) 40 Mg Tablet, 60 MG PO DAILY for edema, TAB 11/26/18 Glipizide (GLIPIZIDE) 10 Mg Tablet, 1 TAB PO BID, #180 TAB 3 Refills 09/24/17 Quetiapine Fumarate (SEROQUEL) 200 Mg Tablet, 0.5 TAB PO QHS, #30 TAB 1 Refill 09/20/17 Lovastatin (LOVASTATIN) 40 Mg Tablet, 1 TAB PO HS for cholesterol, #90 TAB 3 Refills 11/04/14 Pioglitazone Hcl (ACTOS) 15 Mg Tablet, 45 MG PO DAILY, TAB 11/03/14 Citalopram Hydrobromide (CELEXA) 40 Mg Tablet, 40 MG PO DAILY, TAB 11/03/14 CHARLOTTE NOVA MD Dec 01, 2018 12:41
--- NOTE | 2018-12-01 12:45 | PDOC3 ---
Discharge Summary Visit Information Date of Admission: Nov 26, 2018 Date of Discharge: Dec 01, 2018 Admitting Diagnosis Comment: Chief Complaint Acute hypercapnic-hypoxemic respiratory failure - BIPAP/CPAP overnight Acute diastolic congestive heart failure - with weight gain, edema, pulm infiltrates Acute kidney injury - likely vasomotor vs cardiorenal. Previously she actually improved with diuresis, will treat as such Bilateral pulmonary infiltrates compatible with pulmonary edema, suspect cardiogenic - will diurese treating empirically for community acquired pneumonia CT scan showing significant effusion, will consult pulmonary Elevated troponin - likely 2/2 stress, renal failure Prior atrial fibrillation - cardizem converted to sinus previously Anemia - a bit lower, likely from her chronic disease. Monitor. Transfuse for Hb < 8 with her CHF history Morbid obesity - will counselor marriage and family Tobacco dependence - continue counseling H/o GERD DM - Sliding scale Hypernatremia Metabolic alkalosis most likely due to excess diuretic use Hypothyroidism - likely multifactorial, acquired atrophy, chronic amiodarone. Would recommend lowest safe dosing of amio and start 50mcg levothyroxine, start increasing dose if necessary based on 6 and 12 week TSH readings Final Diagnosis Problems Medical Problems: (1) Anasarca Status: Acute (2) CAP (community acquired pneumonia) Status: Acute (3) CHF (congestive heart failure) Status: Acute (4) COPD exacerbation Status: Acute (5) Pleural effusion Status: Acute Brief Hospital Course Allergies Allergies Coded Allergies Type Severity Reaction Last Updated Verified No Known Drug Allergies 11/26/18 No Vital Signs Vital Signs Date Time Temp Pulse Resp B/P (MAP) Pulse Ox O2 Delivery O2 Flow Rate FiO2 12/01/18 12:27 91 Nasal Cannula 3.0 12/01/18 11:00 98.2 103 24 132/51 (78) 98.2 Lab Results Laboratory Tests Test 11/29/18 17:00 11/29/18 20:09 11/30/18 07:37 11/30/18 09:45 Glucose (Fingerstick) 149 mg/dL (70-99) 139 mg/dL (70-99) 139 mg/dL (70-99) White Blood Count 4.8 x10^3/uL (4.0-11.0) Red Blood Count 2.62 x10^6/uL (3.50-5.40) Hemoglobin 6.8 g/dL (12.0-15.5) Hematocrit 22.8 % (36.0-47.0) Mean Corpuscular Volume 87 fL (79-100) Mean Corpuscular Hemoglobin 26 pg (25-35) Mean Corpuscular Hemoglobin Concent 30 g/dL (31-37) Red Cell Distribution Width 17.6 % (11.5-14.5) Platelet Count 213 x10^3/uL (140-400) Neutrophils (%) (Auto) 56 % (31-73) Lymphocytes (%) (Auto) 29 % (24-48) Monocytes (%) (Auto) 12 % (0-9) Eosinophils (%) (Auto) 2 % (0-3) Basophils (%) (Auto) 1 % (0-3) Neutrophils # (Auto) 2.7 x10^3uL (1.8-7.7) Lymphocytes # (Auto) 1.4 x10^3/uL (1.0-4.8) Monocytes # (Auto) 0.6 x10^3/uL (0.0-1.1) Eosinophils # (Auto) 0.1 x10^3/uL (0.0-0.7) Basophils # (Auto) 0.0 x10^3/uL (0.0-0.2) Sodium Level 146 mmol/L (136-145) Potassium Level 3.2 mmol/L (3.5-5.1) Chloride Level 101 mmol/L (98-107) Carbon Dioxide Level 42 mmol/L (21-32) Anion Gap 3 (6-14) Blood Urea Nitrogen 20 mg/dL (7-20) Creatinine 1.7 mg/dL (0.6-1.0) Estimated GFR (Cockcroft-Gault) 30.6 Glucose Level 155 mg/dL (70-99) Calcium Level 9.3 mg/dL (8.5-10.1) Test 11/30/18 11:20 11/30/18 15:54 11/30/18 20:10 12/01/18 05:05 Glucose (Fingerstick) 168 mg/dL (70-99) 151 mg/dL (70-99) 139 mg/dL (70-99) White Blood Count 5.0 x10^3/uL (4.0-11.0) Red Blood Count 3.10 x10^6/uL (3.50-5.40) Hemoglobin 8.4 g/dL (12.0-15.5) Hematocrit 26.7 % (36.0-47.0) Mean Corpuscular Volume 86 fL (79-100) Mean Corpuscular Hemoglobin 27 pg (25-35) Mean Corpuscular Hemoglobin Concent 31 g/dL (31-37) Red Cell Distribution Width 16.8 % (11.5-14.5) Platelet Count 200 x10^3/uL (140-400) Neutrophils (%) (Auto) 55 % (31-73) Lymphocytes (%) (Auto) 31 % (24-48) Monocytes (%) (Auto) 11 % (0-9) Eosinophils (%) (Auto) 2 % (0-3) Basophils (%) (Auto) 0 % (0-3) Neutrophils # (Auto) 2.7 x10^3uL (1.8-7.7) Lymphocytes # (Auto) 1.5 x10^3/uL (1.0-4.8) Monocytes # (Auto) 0.5 x10^3/uL (0.0-1.1) Eosinophils # (Auto) 0.1 x10^3/uL (0.0-0.7) Basophils # (Auto) 0.0 x10^3/uL (0.0-0.2) Sodium Level 146 mmol/L (136-145) Potassium Level 3.1 mmol/L (3.5-5.1) Chloride Level 100 mmol/L (98-107) Carbon Dioxide Level 41 mmol/L (21-32) Anion Gap 5 (6-14) Blood Urea Nitrogen 21 mg/dL (7-20) Creatinine 1.6 mg/dL (0.6-1.0) Estimated GFR (Cockcroft-Gault) 32.8 Glucose Level 136 mg/dL (70-99) Calcium Level 9.1 mg/dL (8.5-10.1) Test 12/01/18 07:44 12/01/18 11:03 Glucose (Fingerstick) 119 mg/dL (70-99) 149 mg/dL (70-99) Laboratory Tests Test 11/30/18 15:54 11/30/18 20:10 12/01/18 05:05 12/01/18 07:44 Glucose (Fingerstick) 151 mg/dL (70-99) 139 mg/dL (70-99) 119 mg/dL (70-99) White Blood Count 5.0 x10^3/uL (4.0-11.0) Red Blood Count 3.10 x10^6/uL (3.50-5.40) Hemoglobin 8.4 g/dL (12.0-15.5) Hematocrit 26.7 % (36.0-47.0) Mean Corpuscular Volume 86 fL (79-100) Mean Corpuscular Hemoglobin 27 pg (25-35) Mean Corpuscular Hemoglobin Concent 31 g/dL (31-37) Red Cell Distribution Width 16.8 % (11.5-14.5) Platelet Count 200 x10^3/uL (140-400) Neutrophils (%) (Auto) 55 % (31-73) Lymphocytes (%) (Auto) 31 % (24-48) Monocytes (%) (Auto) 11 % (0-9) Eosinophils (%) (Auto) 2 % (0-3) Basophils (%) (Auto) 0 % (0-3) Neutrophils # (Auto) 2.7 x10^3uL (1.8-7.7) Lymphocytes # (Auto) 1.5 x10^3/uL (1.0-4.8) Monocytes # (Auto) 0.5 x10^3/uL (0.0-1.1) Eosinophils # (Auto) 0.1 x10^3/uL (0.0-0.7) Basophils # (Auto) 0.0 x10^3/uL (0.0-0.2) Sodium Level 146 mmol/L (136-145) Potassium Level 3.1 mmol/L (3.5-5.1) Chloride Level 100 mmol/L (98-107) Carbon Dioxide Level 41 mmol/L (21-32) Anion Gap 5 (6-14) Blood Urea Nitrogen 21 mg/dL (7-20) Creatinine 1.6 mg/dL (0.6-1.0) Estimated GFR (Cockcroft-Gault) 32.8 Glucose Level 136 mg/dL (70-99) Calcium Level 9.1 mg/dL (8.5-10.1) Test 12/01/18 11:03 Glucose (Fingerstick) 149 mg/dL (70-99) Brief Hospital Course Ms. Barnard is a 63 old obese white female with a BMI 51.2, admitted for A. fib RVR, (knwon paroxysmal a fib) diastolic CHF exacerbation, weight gain etc. She is on Lasix 60 once a day at home. We were diuresing IV with acetazolamide also here. Comanage with pulmonary and cardiology. Needing BiPAP she already has BiPAP and home O2 at home. Family/ only amenable to home health. Sreedhar (has experienced with them) Course remarkable for TSH is greater than 10 with normal free T4 free T3. In the light of TSH greater than 10 and symptoms of CHF. Colleague started low-dose , Synthroid because of A. fib and other comorbidities. I have Rxd Synthroid, needed some potassium supplements while we were diuresing. Some pneumonia? Acute bronchitis and x-ray hence by mouth doxycycline for 7 more days. She was getting IV Doxy and IV Rocephin Urine culture blood culture negative. She is doing much better consults performed pulmonary, cardiology Procedures performed none dc 30 mins, lots of paperwork, co morbid etc Discharge Information Condition at Discharge: Improved, Stable Disposition/Orders: D/C to Home w/ HH Scheduled Amiodarone Hcl (Amiodarone Hcl) 200 Mg Tablet, 200 MG PO BID for heart rhythm for 30 Days, #60 Prescribed by: FABIOLA NIELSEN MD on 08/04/181154 Last Action: Continued on 11/26/182101 by KIANA ORTEZ MD Apixaban (Eliquis) 5 Mg Tablet, 5 MG PO BID for heart for 30 Days, #60 Prescribed by: FABIOLA NIELSEN MD on 08/04/181154 Last Action: Continued on 11/26/182101 by KIANA ORTEZ MD Aspirin (Aspirin) 81 Mg Tab.chew, 81 MG PO DAILYWBK for heart health for 30 Days, #30 Prescribed by: FABIOLA NIELSEN MD on 08/04/181154 Last Action: Continued on 11/26/182101 by KIANA ORTEZ MD Citalopram Hydrobromide (Celexa) 40 Mg Tablet, 40 MG PO DAILY, (Reported) Entered as Reported by: BERNARD RODONEZ on 11/03/142231 Last Action: Converted on 11/26/182101 by KIANA ORTEZ MD Doxycycline Hyclate (Doxycycline Hyclate) 100 Mg Tablet, 100 MG PO BID for pna MDD 1 for 7 Days, #14 Prescribed by: CHARLOTTE NOVA on 12/01/18 1240 Furosemide (Furosemide) 40 Mg Tablet, 60 MG PO DAILY for edema, (Reported) Entered as Reported by: VIC ALFARO on 11/26/182054 Last Action: HELD on 11/26/182100 by KIANA ORTEZ MD Glipizide (Glipizide) 10 Mg Tablet, 1 TAB PO BID, #180 Ref 3 (Reported) Entered as Reported by: GRANT HOGUE on 09/24/17 0658 Last Action: Converted on 11/26/182101 by KIANA ORTEZ MD Ipratropium/Albuterol Sulfate (Duoneb 0.5-3(2.5) Mg/3 Ml) 3 Ml Ampul.neb, 3 ML NEB RTQID for lungs for 30 Days, #120 Prescribed by: FABIOLA NIELSEN MD on 08/04/18 1155 Last Action: Continued on 11/26/182101 by KIANA ORTEZ MD Levothyroxine Sodium (Synthroid) 50 Mcg Tablet, 50 MCG PO DAILY06 for hypothy MDD 1 for 30 Days, #30 Prescribed by: CHARLOTTE NOVA on 12/01/18 1240 Lovastatin (Lovastatin) 40 Mg Tablet, 1 TAB PO HS for cholesterol, #90 Ref 3 ( Reported) Entered as Reported by: BERNARD ORDONEZ on 11/04/14 0106 Last Action: Converted on 11/26/182101 by KIANA ORTEZ MD Metoprolol Succinate (Metoprolol Succinate ( Xl )) 25 Mg Tab.er.24h, 25 MG PO DAILY for afib for 30 Days, #30 Prescribed by: ANKIT CARRINGTON MD on 08/13/18 1058 Last Action: Continued on 11/26/182101 by KIANA ORTEZ MD Pioglitazone Hcl (Actos) 15 Mg Tablet, 45 MG PO DAILY, (Reported) Entered as Reported by: BERNARD ORDONEZ on 11/03/142231 Last Action: Converted on 11/26/182101 by KIANA ORTEZ MD Potassium Chloride (Klor-Con M20) 20 Meq Tab.er.prt, 20 MEQ PO DAILYWBKFT for hypokal MDD 1 for 30 Days, #30 Prescribed by: CHARLOTTE NOVA on 12/01/18 1240 Quetiapine Fumarate (Seroquel) 200 Mg Tablet, 0.5 TAB PO QHS, #30 Ref 1 ( Reported) Entered as Reported by: DELICIA DILLON on 09/20/17 0903 Last Action: Converted on 11/26/182101 by MD AVTAR BEAVER CHERRIE Y MD Dec 01, 2018 12:44
[2018-12-01] MEDS ORDERED: CEFDINIR 300 MG CAPSULE PO SCH (13:00)
--- NOTE | 2018-12-01 13:52 | NUR ---
BERTHA following. [facility] BERTHA phoned and faxed [facility] to [facility]. Pt will be transported home by family. Discussed with RN.
--- NOTE | 2018-12-01 14:02 | PDOC ---
PULMONARY PROGRESS NOTES Subjective sob, cough better, is on home cpap, and 02 Vitals Vital Signs Date Time Temp Pulse Resp B/P (MAP) Pulse Ox O2 Delivery O2 Flow Rate FiO2 12/01/18 12:27 91 Nasal Cannula 3.0 12/01/18 11:00 98.2 103 24 132/51 (78) 98.2 ROS: No Nausea, No Chest Pain, No Abdominal Pain General: Alert, No acute distress HEENT: Other (bipap mask on) Lungs: Clear Cardiovascular: S1, S2 Abdomen: Soft, Non-tender, Other Neuro Exam: Alert Extremities: Other (edema) Skin: Warm Labs Laboratory Tests Test 11/29/18 17:00 11/29/18 20:09 11/30/18 07:37 11/30/18 09:45 Glucose (Fingerstick) 149 mg/dL (70-99) 139 mg/dL (70-99) 139 mg/dL (70-99) White Blood Count 4.8 x10^3/uL (4.0-11.0) Red Blood Count 2.62 x10^6/uL (3.50-5.40) Hemoglobin 6.8 g/dL (12.0-15.5) Hematocrit 22.8 % (36.0-47.0) Mean Corpuscular Volume 87 fL (79-100) Mean Corpuscular Hemoglobin 26 pg (25-35) Mean Corpuscular Hemoglobin Concent 30 g/dL (31-37) Red Cell Distribution Width 17.6 % (11.5-14.5) Platelet Count 213 x10^3/uL (140-400) Neutrophils (%) (Auto) 56 % (31-73) Lymphocytes (%) (Auto) 29 % (24-48) Monocytes (%) (Auto) 12 % (0-9) Eosinophils (%) (Auto) 2 % (0-3) Basophils (%) (Auto) 1 % (0-3) Neutrophils # (Auto) 2.7 x10^3uL (1.8-7.7) Lymphocytes # (Auto) 1.4 x10^3/uL (1.0-4.8) Monocytes # (Auto) 0.6 x10^3/uL (0.0-1.1) Eosinophils # (Auto) 0.1 x10^3/uL (0.0-0.7) Basophils # (Auto) 0.0 x10^3/uL (0.0-0.2) Sodium Level 146 mmol/L (136-145) Potassium Level 3.2 mmol/L (3.5-5.1) Chloride Level 101 mmol/L (98-107) Carbon Dioxide Level 42 mmol/L (21-32) Anion Gap 3 (6-14) Blood Urea Nitrogen 20 mg/dL (7-20) Creatinine 1.7 mg/dL (0.6-1.0) Estimated GFR (Cockcroft-Gault) 30.6 Glucose Level 155 mg/dL (70-99) Calcium Level 9.3 mg/dL (8.5-10.1) Test 11/30/18 11:20 11/30/18 15:54 11/30/18 20:10 12/01/18 05:05 Glucose (Fingerstick) 168 mg/dL (70-99) 151 mg/dL (70-99) 139 mg/dL (70-99) White Blood Count 5.0 x10^3/uL (4.0-11.0) Red Blood Count 3.10 x10^6/uL (3.50-5.40) Hemoglobin 8.4 g/dL (12.0-15.5) Hematocrit 26.7 % (36.0-47.0) Mean Corpuscular Volume 86 fL (79-100) Mean Corpuscular Hemoglobin 27 pg (25-35) Mean Corpuscular Hemoglobin Concent 31 g/dL (31-37) Red Cell Distribution Width 16.8 % (11.5-14.5) Platelet Count 200 x10^3/uL (140-400) Neutrophils (%) (Auto) 55 % (31-73) Lymphocytes (%) (Auto) 31 % (24-48) Monocytes (%) (Auto) 11 % (0-9) Eosinophils (%) (Auto) 2 % (0-3) Basophils (%) (Auto) 0 % (0-3) Neutrophils # (Auto) 2.7 x10^3uL (1.8-7.7) Lymphocytes # (Auto) 1.5 x10^3/uL (1.0-4.8) Monocytes # (Auto) 0.5 x10^3/uL (0.0-1.1) Eosinophils # (Auto) 0.1 x10^3/uL (0.0-0.7) Basophils # (Auto) 0.0 x10^3/uL (0.0-0.2) Sodium Level 146 mmol/L (136-145) Potassium Level 3.1 mmol/L (3.5-5.1) Chloride Level 100 mmol/L (98-107) Carbon Dioxide Level 41 mmol/L (21-32) Anion Gap 5 (6-14) Blood Urea Nitrogen 21 mg/dL (7-20) Creatinine 1.6 mg/dL (0.6-1.0) Estimated GFR (Cockcroft-Gault) 32.8 Glucose Level 136 mg/dL (70-99) Calcium Level 9.1 mg/dL (8.5-10.1) Test 12/01/18 07:44 12/01/18 11:03 Glucose (Fingerstick) 119 mg/dL (70-99) 149 mg/dL (70-99) Laboratory Tests Test 11/30/18 15:54 11/30/18 20:10 12/01/18 05:05 12/01/18 07:44 Glucose (Fingerstick) 151 mg/dL (70-99) 139 mg/dL (70-99) 119 mg/dL (70-99) White Blood Count 5.0 x10^3/uL (4.0-11.0) Red Blood Count 3.10 x10^6/uL (3.50-5.40) Hemoglobin 8.4 g/dL (12.0-15.5) Hematocrit 26.7 % (36.0-47.0) Mean Corpuscular Volume 86 fL (79-100) Mean Corpuscular Hemoglobin 27 pg (25-35) Mean Corpuscular Hemoglobin Concent 31 g/dL (31-37) Red Cell Distribution Width 16.8 % (11.5-14.5) Platelet Count 200 x10^3/uL (140-400) Neutrophils (%) (Auto) 55 % (31-73) Lymphocytes (%) (Auto) 31 % (24-48) Monocytes (%) (Auto) 11 % (0-9) Eosinophils (%) (Auto) 2 % (0-3) Basophils (%) (Auto) 0 % (0-3) Neutrophils # (Auto) 2.7 x10^3uL (1.8-7.7) Lymphocytes # (Auto) 1.5 x10^3/uL (1.0-4.8) Monocytes # (Auto) 0.5 x10^3/uL (0.0-1.1) Eosinophils # (Auto) 0.1 x10^3/uL (0.0-0.7) Basophils # (Auto) 0.0 x10^3/uL (0.0-0.2) Sodium Level 146 mmol/L (136-145) Potassium Level 3.1 mmol/L (3.5-5.1) Chloride Level 100 mmol/L (98-107) Carbon Dioxide Level 41 mmol/L (21-32) Anion Gap 5 (6-14) Blood Urea Nitrogen 21 mg/dL (7-20) Creatinine 1.6 mg/dL (0.6-1.0) Estimated GFR (Cockcroft-Gault) 32.8 Glucose Level 136 mg/dL (70-99) Calcium Level 9.1 mg/dL (8.5-10.1) Test 12/01/18 11:03 Glucose (Fingerstick) 149 mg/dL (70-99) Medications Active Scripts Medications Dose Route/Sig Max Daily Dose Days Date Category Furosemide 40 Mg Tablet 60 Mg PO DAILY 11/26/18 Reported Metoprolol Succinate ( Xl ) (Metoprolol Succinate) 25 Mg Tab.er.24h 25 Mg PO DAILY 30 08/13/18 Rx Duoneb 0.5-3(2.5) Mg/3 Ml (Albuterol/Ipratropium) 3 Ml Ampul.neb 3 Ml NEB RTQID 08/04/18 Rx Eliquis (Apixaban) 5 Mg Tablet 5 Mg PO BID 08/04/18 Rx Amiodarone Hcl 200 Mg Tablet 200 Mg PO BID 08/04/18 Rx Aspirin 81 Mg Tab.chew 81 Mg PO DAILYWBKFT 08/04/18 Rx Glipizide 10 Mg Tablet 1 Tab PO BID 09/24/17 Reported Seroquel (Quetiapine Fumarate) 200 Mg Tablet 0.5 Tab PO QHS 09/20/17 Reported Lovastatin 40 Mg Tablet 1 Tab PO HS 11/04/14 Reported Actos (Pioglitazone Hcl) 15 Mg Tablet 45 Mg PO DAILY 11/03/14 Reported Celexa (Citalopram Hydrobromide) 40 Mg Tablet 40 Mg PO DAILY 11/03/14 Reported Impression . IMPRESSION: 1. [id number] hypercapnic hypoxemic respiratory failure. 2. [id number] congestive heart failure. 3. Right-sided pleural effusion. 4. Possible pneumonia. 5. Paroxysmal atrial fibrillation, atrial flutter with rapid ventricular response at times. 6. Chronic kidney disease. 7. Morbid obesity. MARIE on home cpap 8. Secondary pulmonary hypertension. 9. Chronic obstructive pulmonary disease. Plan . PLAN: thoracentesis not done, not enough pf cont abx BD keep I<O, lasix, monitor cr, k cont bipap prn during day and cont at night, setting reviewed. Home CPAP at de on eliquis increase activity lose wt discussed w pt, her , rn ok with dc home JASON HUSSEIN MD Dec 01, 2018 14:02
--- NOTE | 2018-12-01 15:04 | NUR ---
Discharge Note: JOHNY ACEVEDO PALISADE Discharge instructions and discharge home medications reviewed with Patient and a copy given. All questions have been answered and understanding verbalized. The following instructions and handouts were given: CHF, PNA Discontinued lines and drains: Peripheral IV intact. Patient discharged to Home or Self Care with Self via Wheelchair walked off unit by IRON
[2018-12-01] MEDS ORDERED: DOXYCYCLINE HYCLATE 100 MG TABLET PO SCH (21:00)
== END 2018-12-01 15:07 | disposition home health service (06) | DRG 682 ==
LOC: ER 16:09 → 5 NORTH 18:15
PROVIDERS: ADMIT Internal Medicine; ATTEND Internal Medicine
PROC: 5A09357 Assistance with Respiratory Ventilation, Less than 24 Consecutive Hours, Continuous Positive Airway Pressure (ICD-10-PCS; principal; 2018-11-26)
PROC: 5A09357 Assistance with Respiratory Ventilation, Less than 24 Consecutive Hours, Continuous Positive Airway Pressure (ICD-10-PCS; 2018-11-28)
PROC: 5A09357 Assistance with Respiratory Ventilation, Less than 24 Consecutive Hours, Continuous Positive Airway Pressure (ICD-10-PCS; 2018-11-30)
PROC: 30233N1 Transfusion of Nonautologous Red Blood Cells into Peripheral Vein, Percutaneous Approach (ICD-10-PCS; 2018-11-30)
PROC: 5A09357 Assistance with Respiratory Ventilation, Less than 24 Consecutive Hours, Continuous Positive Airway Pressure (ICD-10-PCS; 2018-12-01)
DX: N17.0 Acute kidney failure with tubular necrosis (principal); I50.33 Acute on chronic diastolic (congestive) heart failure; J96.21 Acute and chronic respiratory failure with hypoxia; J96.22 Acute and chronic respiratory failure with hypercapnia; J18.9 Pneumonia, unspecified organism; I13.0 Hypertensive heart and chronic kidney disease with heart failure and stage 1 through stage 4 chronic kidney disease, or unspecified chronic kidney disease; J44.1 Chronic obstructive pulmonary disease with (acute) exacerbation; J44.0 Chronic obstructive pulmonary disease with (acute) lower respiratory infection; I48.92 Unspecified atrial flutter; J98.11 Atelectasis; Z68.43 Body mass index [BMI] 50.0-59.9, adult; N18.4 Chronic kidney disease, stage 4 (severe); R74.8 Abnormal levels of other serum enzymes; I48.91 Unspecified atrial fibrillation; D63.8 Anemia in other chronic diseases classified elsewhere; K21.9 Gastro-esophageal reflux disease without esophagitis; E78.00 Pure hypercholesterolemia, unspecified; E11.22 Type 2 diabetes mellitus with diabetic chronic kidney disease; G47.33 Obstructive sleep apnea (adult) (pediatric); G25.81 Restless legs syndrome; F20.9 Schizophrenia, unspecified; F41.9 Anxiety disorder, unspecified; F32.9 Major depressive disorder, single episode, unspecified; M19.90 Unspecified osteoarthritis, unspecified site; E66.01 Morbid (severe) obesity due to excess calories; I27.29 Other secondary pulmonary hypertension; F17.200 Nicotine dependence, unspecified, uncomplicated; E78.5 Hyperlipidemia, unspecified; I25.10 Atherosclerotic heart disease of native coronary artery without angina pectoris; I48.2 Chronic atrial fibrillation; J20.9 Acute bronchitis, unspecified; M81.0 Age-related osteoporosis without current pathological fracture; Z79.84 Long term (current) use of oral hypoglycemic drugs; Z79.890 Hormone replacement therapy; Z79.899 Other long term (current) drug therapy; Z99.2 Dependence on renal dialysis; Z99.81 Dependence on supplemental oxygen; I25.2 Old myocardial infarction; Z83.3 Family history of diabetes mellitus; Z82.49 Family history of ischemic heart disease and other diseases of the circulatory system; Z79.01 Long term (current) use of anticoagulants
CPT/HCPCS: 36415; 36600; 70450; 71045; 71250; 72125; 80048; 80053; 81001; 82550; 82553; 82805; 82962; 83605; 83880; 84439; 84443; 84480; 84484; 85025; 86850; 86900; 86901; 86920; 87040; 93005; 94640; 94660; 96374; 96375; J0456; J0696; J1120; J1815; J1940; J3490; J7620; P9016; Q0163; 99285-25